=== PATIENT | female | born 1955 | race Caucasian/White ===

== ENCOUNTER 2020-01-14 06:38 | Outpatient (REF) | payer OTHER, SELFPAY ==
[2020-01-14 07:55] LABS: Alanine Aminotransferase 24 U/L (0-31); Anion Gap 12 (12-20); Aspartate Amino Transferase 18 U/L (5-31); Blood Urea Nitrogen 18 mg/dL (9-16); Carbon Dioxide 27 mmol/L (22-29); Chloride 104 mmol/L (96-108); Cholesterol 158 mg/dL; Estimated Glomerular Filt Rate > 60; Glucose Fasting 112 mg/dL (60-99); HDL Cholesterol 55 mg/dL; LDL Cholesterol Calculated 88 mg/dl; Potassium 4.2 mmol/l (3.3-5.1); Sodium 139 mmol/L (135-145); Triglycerides 75 mg/dL
[2020-01-14 08:16] LABS: Vitamin D 25-OH Total 29.4 ng/mL (>30)
== END 2020-01-14 06:39 | disposition home or self-care (01) ==
LOC: HO.LAB 06:38
PROVIDERS: Visit Provider Internal Medicine
DX: E78.5 Hyperlipidemia, unspecified (principal); I10 Essential (primary) hypertension; Z78.0 Asymptomatic menopausal state
CPT/HCPCS: 80048; 80061; 82306; 84450; 84460

== ENCOUNTER 2020-04-25 06:59 | Outpatient (REF) | payer OTHER, SELFPAY ==
[2020-04-25 07:21] LABS: MANUAL DIFF FLAG NO
[2020-04-25 07:28] LABS: Basophils Percent Auto 0.6 % (0-2); Eosinophils Absolute Auto 0.1 X10*3/uL (0.0-0.4); Eosinophils Percent Auto 3.9 % (0-4); Hematocrit 43.4 % (37-47); Hemoglobin 14.5 g/dl (12.0-16.0); Lymphocytes Absolute Auto 1.2 X10*3/uL (1.2-4.9); Lymphocytes Percent Auto 33.4 % (20-40); Mean Corpuscular HGB Conc 33.4 g/dl (31.0-35.0); Mean Corpuscular Hemoglobin 31.5 pg (27.0-33.0); Mean Corpuscular Volume 94.1 fL (80-98); Mean Platelet Volume 9.8 fL (9.4-12.3); Monocytes Absolute Auto 0.4 X10*3/uL (0.1-1.2); Monocytes Percent Auto 10.6 % (2-11); Neutrophils Absolute Auto 1.9 X10*3/uL (2.0-8.3); Neutrophils Percent Auto 51.5 % (45-73); Platelet Count 167 X10*3/uL (160-400); Red Blood Count 4.61 X10*6/uL (4.20-5.50); Red Cell Distribution Width 12.6 % (11.0-16.0); White Blood Count 3.6 X10*3/uL (4.8-10.8)
[2020-04-25 07:50] LABS: Estimated Average Glucose 123 mg/dL; Hemoglobin A1C 150.4238 umol/L; Hemoglobin A1c % 5.9 %
[2020-04-25 08:19] LABS: Vitamin D 25-OH Total 25.9 ng/mL (>30)
[2020-04-25 08:25] LABS: Alanine Aminotransferase 22 U/L (0-31); Albumin Level 4.2 g/dL (3.5-5.0); Alkaline Phosphatase 57 U/L (39-117); Anion Gap 16 (12-20); Aspartate Amino Transferase 18 U/L (5-31); Bilirubin Total 0.9 mg/dL (0.0-1.0); Blood Urea Nitrogen 17 mg/dL (9-16); Calcium 8.8 mg/dL (8.4-10.2); Carbon Dioxide 23 mmol/L (22-29); Chloride 106 mmol/L (96-108); Cholesterol 227 mg/dL; Estimated Glomerular Filt Rate > 60; Glucose Fasting 112 mg/dL (60-99); HDL Cholesterol 66 mg/dL; Iron 122 mcg/dL (30-160); LDL Cholesterol Calculated 142 mg/dl; Percent Iron Saturation 41 % (15-50); Potassium 4.3 mmol/L (3.3-5.1); Sodium 141 mmol/L (135-145); Total Iron Binding Capacity 297 mcg/dL (228-428); Triglycerides 98 mg/dL; Unsaturated Iron Binding 175 ug/dL
== END 2020-04-25 07:00 | disposition home or self-care (01) ==
LOC: HO.LAB 06:59
PROVIDERS: PCP Internal Medicine; Visit Provider Internal Medicine
DX: Z00.01 Encounter for general adult medical examination with abnormal findings (principal); R73.01 Impaired fasting glucose; E66.01 Morbid (severe) obesity due to excess calories; I10 Essential (primary) hypertension; E78.5 Hyperlipidemia, unspecified; D72.829 Elevated white blood cell count, unspecified; D64.9 Anemia, unspecified; D12.6 Benign neoplasm of colon, unspecified
CPT/HCPCS: 36415; 80053; 80061; 82306; 83036; 83540; 85025

== ENCOUNTER 2021-04-29 06:47 | Outpatient (REF) | payer OTHER, SELFPAY ==
[2021-04-29 12:07] LABS: Alanine Aminotransferase 37 U/L (0-31); Albumin Level 4.2 g/dL (3.5-5.0); Alkaline Phosphatase 45 U/L (39-117); Anion Gap 13 (12-20); Aspartate Amino Transferase 26 U/L (5-31); Bilirubin Total 0.9 mg/dL (0.0-1.0); Blood Urea Nitrogen 15 mg/dL (9-16); Calcium 9.6 mg/dL (8.4-10.2); Carbon Dioxide 27 mmol/L (22-29); Chloride 105 mmol/L (96-108); Cholesterol 193 mg/dL; Estimated Glomerular Filt Rate > 60; Glucose Fasting 137 mg/dL (60-99); HDL Cholesterol 58 mg/dL; LDL Cholesterol Calculated 113 mg/dl; Potassium 4.2 mmol/L (3.3-5.1); Sodium 141 mmol/L (135-145); Total Protein 7.2 g/dL (6.5-8.0); Triglycerides 114 mg/dL
[2021-04-29 12:13] LABS: Vitamin D 25-OH Total 21.5 ng/mL (>30)
== END 2021-04-29 06:48 | disposition home or self-care (01) ==
LOC: HO.HMGCLDS 06:47
PROVIDERS: Visit Provider Internal Medicine
DX: Z00.01 Encounter for general adult medical examination with abnormal findings (principal); R73.01 Impaired fasting glucose; E66.01 Morbid (severe) obesity due to excess calories; I10 Essential (primary) hypertension; E78.5 Hyperlipidemia, unspecified
CPT/HCPCS: 36415; 80053; 80061; 82306

== ENCOUNTER 2022-05-26 06:07 | Outpatient (REF) | payer OTHER, SELFPAY ==
[2022-05-26 11:49] LABS: Alanine Aminotransferase 65 U/L (0-31); Aspartate Amino Transferase 42 U/L (5-31); Cholesterol 174 mg/dL; HDL Cholesterol 55 mg/dL; LDL Cholesterol Calculated 104 mg/dl; Triglycerides 79 mg/dL
[2022-05-26 11:53] LABS: Estimated Average Glucose 166 mg/dL; Hemoglobin A1c % 7.4 %
[2022-05-26 12:07] LABS: Vitamin D 25-OH Total 29.6 ng/mL (>30)
== END 2022-05-26 06:08 | disposition home or self-care (01) ==
LOC: HO.HMGCLDS 06:07
PROVIDERS: PCP Internal Medicine; Visit Provider Internal Medicine
DX: E66.01 Morbid (severe) obesity due to excess calories (principal); I10 Essential (primary) hypertension; E78.5 Hyperlipidemia, unspecified; R73.01 Impaired fasting glucose
CPT/HCPCS: 36415; 80061; 82306; 83036; 84450; 84460

== ENCOUNTER 2022-09-28 07:37 | Outpatient (REF) | payer OTHER, SELFPAY ==
[2022-09-28 12:13] LABS: Estimated Average Glucose 160 mg/dL; Hemoglobin A1c % 7.2 %
[2022-09-28 13:19] LABS: Alanine Aminotransferase 67 U/L (0-31); Anion Gap 13 (12-20); Aspartate Amino Transferase 44 U/L (5-31); Blood Urea Nitrogen 16 mg/dL (9-16); Calcium 9.5 mg/dL (8.4-10.2); Carbon Dioxide 25 mmol/L (22-29); Chloride 106 mmol/L (96-108); Cholesterol 191 mg/dL; Estimated Glomerular Filt Rate > 60; Glucose Fasting 170 mg/dL (60-99); HDL Cholesterol 61 mg/dL; LDL Cholesterol Calculated 107 mg/dl; Potassium 4.1 mmol/L (3.3-5.1); Sodium 140 mmol/L (135-145); Triglycerides 118 mg/dL
[2022-09-28 13:36] LABS: Vitamin D 25-OH Total 36.5 ng/mL (>30)
== END 2022-09-28 07:38 | disposition home or self-care (01) ==
LOC: HO.HMGCLDS 07:37
PROVIDERS: PCP Internal Medicine; Visit Provider Internal Medicine
DX: E11.65 Type 2 diabetes mellitus with hyperglycemia (principal); E66.01 Morbid (severe) obesity due to excess calories; I10 Essential (primary) hypertension; E78.5 Hyperlipidemia, unspecified; E55.9 Vitamin D deficiency, unspecified
CPT/HCPCS: 36415; 80048; 80061; 82306; 83036; 84450; 84460

== ENCOUNTER 2022-10-05 11:46 | Outpatient (AMB) | payer OTHER, SELFPAY ==
[2022-10-05 12:20] VITALS: BP 140/90; PULSE 63; O2SAT 98; BMI 45.3
--- NOTE | 2022-10-05 12:20 | MHC.PC.OV ---
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: Patient has dentist HPI 4m follow up HTN HPI Details 67-year-old lady here today for follow-up on her hypertension. Currently taking lisinopril 10 mg daily, has been feeling well on this dose, with no complaints of any headache, no dizziness or chest pain or shortness of breath. She also has diabetes mellitus currently on metformin ER 500 mg taken only once a day, and takes simvastatin 20 mg at bedtime for her high cholesterol. Recent fasting labs done which showed mildly elevated LDL cholesterol at 107 mg/dL, with a hemoglobin A1c at 7.2%, lower than last check. [facility] Medical History Bilateral carpal tunnel syndrome Diabetes mellitus with hyperglycemia Dyslipidemia (high LDL; low HDL) Essential hypertension Impaired fasting glucose Leukocytosis Morbid obesity Tubular adenoma of colon Surgical History No pertinent past surgical history Family History Father No problems noted. Mother No problems noted. Brother No problems noted. Sister No problems noted. Sister No problems noted. Social History Housing: House Alcohol intake: current Patient Tobacco Use Status: Never used Tobacco e-Cigarette/Vaping Use: Never Used service: No Current occupational status: employed Cognitive needs: No Hearing needs: No Vision needs: Yes Questionnaire Thrive Questionnaire Date Thrive assessed: 06/02/22 WEI-7 AMB Questionnaire WEI-7 Date WEI - 7 assessed: 06/02/22 Source: Developed by Drs. Nick Fry, Leonor Alvarez, Rosendo Coronel and colleagues, with an educational angie from [employer]. Review of Systems Const Denies body aches, Denies fatigue, Denies fever(s), Denies headache(s) and Denies weakness Eyes Denies change in vision ENT Denies dizziness, Denies headache(s), Denies nasal congestion, Denies nasal discharge and Denies sore throat Card Denies chest pain, Denies lightheadedness, Denies palpitations and Denies dyspnea Resp Denies chest congestion, Denies cough, Denies dyspnea and Denies wheezing GI Denies abdominal pain, Denies change in bowel habits and Denies heartburn Denies urinary frequency, Denies dysuria and Denies urinary urgency Musc Reports no additional complaints Skin/Breast Denies lesions and Denies rash Neuro Denies dizziness, Denies headache(s) and Denies weakness Psych Reports no additional complaints Endo Denies fatigue, Denies polydipsia, Denies polyuria and Denies palpitations Lucian/Lymph Denies easy bruising Aller/Immun Denies seasonal rhinorrhea and Denies wheezing Physical exam (Primary Care) Vital Signs: Last Vital Signs Pulse 63 10/05/22 12:20 BP 140/90 H 10/05/22 12:20 Pulse Ox 98 10/05/22 12:20 BMI result Body Mass Index 45.3 Tobacco/Smoking Status: Tobacco use Status Tobacco use date assessed 06/02/22 10/05/22 12:25 Patient Tobacco Use Status Never used Tobacco 10/05/22 12:25 e-Cigarette/Vaping Use Never Used 10/05/22 12:25 Thrive Assessment: Date of Thrive Assessment Date Thrive assessed 06/02/22 10/05/22 12:25 Const General: cooperative, comfortable and no acute distress Nutritional Appearance: obese morbidly obese Orientation/consciousness: patient oriented x3 Limitations: ambulation with walker HENMT Head: Yes normocephalic and Yes atraumatic Ears: hearing grossly normal bilaterally, external ears normal, TM's normal bilaterally and EAC's normal General nose exam: Normal external nose present and No nasal discharge present Face and sinus: Yes sinuses nontender and Yes face symmetric Mouth: Normal oral and palatal mucosa present and moist mucous membranes Eyes General: appearance normal, both eyes and all related structures Neck Neck: Yes full ROM, Yes no lymphadenopathy, Yes supple and Yes no JVD Thyroid: Thyroid normal Resp Effort & Inspection: normal respiratory effort and able to speak in complete sentences Auscultation: clear to auscultation bilaterally Cardio Palpation: normal PMI Rate: regular rate Rhythm: regular rhythm Heart sounds: S1 normal heart sound present and S2 normal heart sound present GI Inspection: Yes Abdominal panniculus present and Yes obesity Palpation (GI): Soft to palpation, nontender, no guarding and no masses Auscultation: normal bowel sounds Neuro General: patient oriented x3, gait normal, tone normal, moves all extremities, Normal light touch and pain sensation, no focal motor deficits and CN's II-XI intact bilaterally Extrem General: Yes full ROM, Yes no joint enlargement, Yes no clubbing, cyanosis or edema, Yes no pedal edema, Yes no calf tenderness and Yes normal gait Results Reviewed Results Reviewed: ENTERED: 09/28/22 DILIP SCHILLING: ORDERED: Met Prof Fast, AST, ALT, Lipid Panel, Vitamin D 25-OH Test Result Flag Reference Site Sodium 140 135-145 mmol/L Potassium 4.1 3.3-5.1 mmol/L CL 106 96-108 mmol/L CO2 25 22-29 mmol/L Gap 13 12-20 BUN 16 9-16 mg/dL Creat 0.73 0.5-1.4 mg/dL EGFR > 60 NOTE: For -[place] individuals, multiply the result by 1.210. Chronic Kidney Disease: Estimated GFR < 60 mL/min/1.73m2 Severe Kidney Disease: Estimated GFR < 15 mL/min/1.73m2 FBS 170 H 60-99 mg/dL A fasting glucose of 126 mg/dl or greater on more than one occasion is considered diagnostic of diabetes. CA 9.5 8.4-10.2 mg/dL AST (GOT) 44 H 5-31 U/L ALT (GPT) 67 H 0-31 U/L Triglyceride 118 mg/dL Desirable Triglyceride: less than 150 mg/dL Borderline High Triglyceride 150-199 mg/dL High Triglyceride: 200-499 mg/dL Very High Triglyceride: greater than or equal to 5OO mg/dL Chol 191 mg/dL Desirable Cholesterol: less than 200 mg/dL Borderline High Cholesterol: 200-239 mg/dL High Cholesterol: greater than 239 mg/dL LDL Calculated 107 mg/dl Desirable LDL: less than 100 mg/dL Near Optimal/Above Optimal LDL: 110-129 mg/dL Borderline High LDL: 130-159 mg/dL High LDL: 160-189 mg/dL Very High LDL: greater than or equal to 190 mg/dL HDL 61 mg/dL Desirable HDL: greater than 40 mg/dL Note: This HDL assay may give artificially low results in patients with liver disease. Vit D 25-OH Tot 36.5 >30 ng/mL Health Based Reference Values* < 20 ng/mL Deficient 20-30 ng/mL Insufficient > 30 ng/mL Sufficient Laboratory Tests 09/28/22 07:43 Estimat Average Glucose 160 Hemoglobin A1c % 7.2 Assessment and Plan Assessment & Plan (1) Diabetes mellitus with hyperglycemia: Code(s): E11.65 - Type 2 diabetes mellitus with hyperglycemia Plan: Increase metformin ER dose to 500 mg twice a day a.m. and p.m. with meals, Recent lab results reviewed with patient, with sugar and hemoglobin A1c improving but still not at goal of less than 7%. Continue to check fasting blood sugar at home, maintain log and bring to next appointment for review. Reinforced diabetic diet and regular exercise with patient. Counseled regarding importance of yearly diabetes retinopathy screening. Patient advised to inspect feet daily, for any signs of injury, callus or infection. Compliance with diet and regular exercise again stressed. Blood pressure goal is less than 130/80, goal LDL is less than 100 and goal hemoglobin A1c is less than 7% follow-up appointment made in-4--months, after fasting labs done. Patient interested in checking blood sugar with [employer] [facility] and would like a referral to see a dietitian for help with her meal plans (2) Essential hypertension: Code(s): I10 - Essential (primary) hypertension Plan: Blood pressure goal is less than 130/80. Continue with lisinopril 10 mg daily.. Reinforced importance of following a low sodium diet, getting regular exercise, and lowering stress levels. (3) Dyslipidemia (high LDL; low HDL): Code(s): E78.5 - Hyperlipidemia, unspecified Plan: Reviewed recent fasting lipid profile with patient with LDL cholesterol still elevated. . Continue with simvastatin 20 mg at bedtime , in addition to adherence to low-cholesterol diet and regular exercise, at least 30 minutes 3 to 4 times a week. Advised patient to make healthy food choices, eat more fruits, vegetables, whole grains, wild caught fish and low-fat dairy. Limit amount of meat and fried or fatty food products, as well as processed foods and fast foods. Follow-up scheduled with repeat fasting lipid panel in 4 months. Orders: Orders Alanine Aminotransferase 01/21/23 E11.65 - Type 2 diabetes mellitus with hyperglycemia, E78.5 - Hyperlipidemia, unspecified, I10 - Essential (primary) hypertension Aspartate Amino Transferase 01/21/23 E11.65 - Type 2 diabetes mellitus with hyperglycemia, E78.5 - Hyperlipidemia, unspecified, I10 - Essential (primary) hypertension Basic Metabolic Panel Fasting 01/21/23 E11.65 - Type 2 diabetes mellitus with hyperglycemia, E78.5 - Hyperlipidemia, unspecified, I10 - Essential (primary) hypertension Hemoglobin A1c 01/21/23 E11.65 - Type 2 diabetes mellitus with hyperglycemia, E78.5 - Hyperlipidemia, unspecified, I10 - Essential (primary) hypertension Lipid Panel 01/21/23 E11.65 - Type 2 diabetes mellitus with hyperglycemia, E78.5 - Hyperlipidemia, unspecified, I10 - Essential (primary) hypertension Vitamin D 25-OH Total 01/21/23 E11.65 - Type 2 diabetes mellitus with hyperglycemia, E78.5 - Hyperlipidemia, unspecified, I10 - Essential (primary) hypertension Microalbumin, Random (w Creat) 01/21/23 E11.65 - Type 2 diabetes mellitus with hyperglycemia, E78.5 - Hyperlipidemia, unspecified, I10 - Essential (primary) hypertension Medications: Changed From metformin ER 500 mg PO DAILY 90 tabs 2RF To metformin ER 500 mg PO BID 3 months 180 tabs 2RF Coding Level of Care Code Est Pt Level 4 (26465) Diagnoses Diabetes mellitus with hyperglycemia E11.65 Essential hypertension I10 Dyslipidemia (high LDL; low HDL) E78.5
== END 2022-10-05 13:12 | disposition home or self-care (01) ==
PROVIDERS: PCP Internal Medicine; Visit Provider Internal Medicine
DX: E11.65 Type 2 diabetes mellitus with hyperglycemia (principal); I10 Essential (primary) hypertension; E78.5 Hyperlipidemia, unspecified
CPT/HCPCS: 99214

== ENCOUNTER 2023-01-27 08:27 | Outpatient (REF) | payer OTHER, SELFPAY ==
[2023-01-27 11:44] LABS: Estimated Average Glucose 180 mg/dL; Hemoglobin A1c % 7.9 % (<6.0)
[2023-01-27 12:12] LABS: Alanine Aminotransferase 67 U/L (0-31); Anion Gap 14 (12-20); Aspartate Amino Transferase 46 U/L (5-31); Blood Urea Nitrogen 14 mg/dL (9-16); Calcium 9.6 mg/dL (8.4-10.2); Carbon Dioxide 26 mmol/L (22-29); Chloride 104 mmol/L (96-108); Cholesterol 166 mg/dL (<200); Estimated Glomerular Filt Rate > 60; Glucose Fasting 179 mg/dL (60-99); HDL Cholesterol 61 mg/dL (>40); LDL Cholesterol Calculated 83 mg/dL (<100); Potassium 4.2 mmol/L (3.3-5.1); Sodium 140 mmol/L (135-145); Triglycerides 113 mg/dL (<150)
[2023-01-27 12:18] LABS: Vitamin D 25-OH Total 54.4 ng/mL (>30)
[2023-01-27 16:47] LABS: Creatinine Urine 174.36 mg/dL; Microalbum/Creatinine Ratio Ur 10.3 ug/mg cr (<30)
== END 2023-01-27 08:28 | disposition home or self-care (01) ==
LOC: HO.HMGCLDS 08:27
PROVIDERS: PCP Internal Medicine; Visit Provider Internal Medicine
DX: E11.65 Type 2 diabetes mellitus with hyperglycemia (principal); E78.5 Hyperlipidemia, unspecified; I10 Essential (primary) hypertension
CPT/HCPCS: 36415; 80048; 80061; 82043; 82306; 82570; 83036; 84450; 84460

== ENCOUNTER 2023-02-04 09:32 | Outpatient (AMB) | payer OTHER, SELFPAY ==
[2023-02-04 09:56] VITALS: BP 140/88; PULSE 70; O2SAT 97; BMI 44.6
--- NOTE | 2023-02-04 09:56 | A.OFFPC_ITS ---
Vital Signs 02/04/23 09:56 Height 5 ft 2 in Weight 244 lb 2 oz BMI 44.6 BP 140/88 H Blood Pressure Location Rt brachial Position Sitting Pulse 70 Pulse Source Pulse Oximeter Pulse Oximetry (%) 97 Oxygen Delivery Method Room Air Intake Visit Reasons: follow up Intake Note: Pt is here to follow up for lab results Allergies No Known Allergies Allergy (Verified 02/04/23 10:23) Medication List - Last Reconciled 02/04/23 by Pam Pierce MD blood sugar diagnostic (FreeStyle Lite Strips) As directed blood-glucose meter (FreeStyle Lite Meter kit) Check blood sugar b.i.d. before meals lancets (FreeStyle Lancets) Check fasting glucose twice a day before meals lisinopril 10 mg PO DAILY metformin ER 500 mg PO BID 3 months simvastatin 20 mg PO QPM Tobacco use date assessed: 02/04/23 Fall risk assessment: No Falls in past year Last assessed Fall Risk: 02/04/23 Dental Screening Dental Screen Date: 02/04/23 Did you have a dental visit in the last 12 months?: Yes Did you have a dental problem in the last 6 months where you did not have access to dental care?: No Was dental information given to patient?: Patient has dentist HPI follow up HPI Details 68-year-old lady with diabetes mellitus, hypertension dyslipidemia, here today for follow-up. She has been trying to follow recommended diet and has started exercising. However she states that she developed some diarrhea and abdominal cramping when she 1st started taking metformin, so has just been taking it once a day for the 1st week, but now has increased dose to twice a day starting 01/27/2023. Patient now states that she is able to tolerate medication with no adverse effects noted . Hemoglobin A1c today is at 7.9% but fasting lipids and vitamin-D levels are within normal limits. She had the diabetes retinopathy screening done at [facility] which showed no retinopathy. Has had her COVID booster and flu shot up-to-date with her shingles vaccine and Tdap, but has not yet had her pneumonia vaccine, which we will give today [facility] Medical History Diabetes mellitus with hyperglycemia Bilateral carpal tunnel syndrome Tubular adenoma of colon Leukocytosis Impaired fasting glucose Morbid obesity Essential hypertension Dyslipidemia (high LDL; low HDL) Surgical History No pertinent past surgical history Family History Father No problems noted. Mother No problems noted. Brother No problems noted. Sister No problems noted. Sister No problems noted. Social History Housing: House Alcohol intake: current Patient Tobacco Use Status: Never used Tobacco e-Cigarette/Vaping Use: Never Used service: No Current occupational status: employed Cognitive needs: No Hearing needs: No Vision needs: Yes Questionnaire Thrive Questionnaire Date Thrive assessed: 06/02/22 WEI-7 AMB Questionnaire WEI-7 Date WEI - 7 assessed: 06/02/22 Source: Developed by Drs. Nick Fry, Leonor Alvarez, Rosendo Coronel and colleagues, with an educational angie from [employer]. Review of Systems Const Denies body aches, Denies fatigue, Denies fever(s), Denies headache(s) and Denies weakness Eyes Details: Up-to-date with her diabetes retinopathy screening, goes to [facility] Denies change in vision ENT Denies dizziness, Denies headache(s), Denies nasal congestion, Denies nasal discharge and Denies sore throat Card Denies chest pain, Denies lightheadedness, Denies palpitations and Denies d yspnea Resp Denies chest congestion, Denies cough, Denies dyspnea and Denies wheezing GI Denies abdominal pain, Denies change in bowel habits and Denies heartburn Denies urinary frequency, Denies dysuria and Denies urinary urgency Musc Reports no additional complaints Skin/Breast Denies lesions and Denies rash Neuro Denies dizziness, Denies headache(s) and Denies weakness Psych Reports no additional complaints Endo Denies fatigue, Denies polydipsia, Denies polyuria and Denies palpitations Lucian/Lymph Denies easy bruising Aller/Immun Denies seasonal rhinorrhea and Denies wheezing Physical exam (Primary Care) Vital Signs: Last Vital Signs Pulse 70 02/04/23 09:56 BP 140/88 H 02/04/23 09:56 Pulse Ox 97 02/04/23 09:56 Oxygen Delivery Method Room Air 02/04/23 09:56 BMI result Body Mass Index 44.6 Tobacco/Smoking Status: Tobacco use Status Tobacco use date assessed 02/04/23 02/04/23 10:02 Patient Tobacco Use Status Never used Tobacco 02/04/23 09:56 e-Cigarette/Vaping Use Never Used 02/04/23 09:56 Thrive Assessment: Date of Thrive Assessment Date Thrive assessed 06/02/22 02/04/23 09:56 Const General: cooperative, comfortable and no acute distress Nutritional Appearance: obese morbidly obese Orientation/consciousness: patient oriented x3 HENMT Head: Yes normocephalic and Yes atraumatic Ears: hearing grossly normal bilaterally, external ears normal, TM's normal bilaterally and EAC's normal General nose exam: Normal external nose present and No nasal discharge present Face and sinus: Yes sinuses nontender and Yes face symmetric Mouth: Normal oral and palatal mucosa present and moist mucous membranes Eyes General: appearance normal, both eyes and all related structures Neck Neck: Yes full ROM, Yes no lymphadenopathy, Yes supple and Yes no JVD Thyroid: Thyroid normal Resp Effort & Inspection: normal respiratory effort and able to speak in complete sentences Auscultation: clear to auscultation bilaterally Cardio Palpation: normal PMI Rate: regular rate Rhythm: regular rhythm Heart sounds: S1 normal heart sound present and S2 normal heart sound present GI Inspection: Yes Abdominal panniculus present and Yes obesity Palpation (GI): Soft to palpation, nontender, no guarding and no masses Auscultation: normal bowel sounds Neuro General: patient oriented x3, gait normal, tone normal, moves all extremities, Normal light touch and pain sensation, no focal motor deficits and CN's II-XI intact bilaterally Extrem General: Yes full ROM, Yes no joint enlargement, Yes no clubbing, cyanosis or e felix, Yes no pedal edema, Yes no calf tenderness and Yes normal gait Assessment and Plan Assessment & Plan (1) Diabetes mellitus with hyperglycemia: Code(s): E11.65 - Type 2 diabetes mellitus with hyperglycemia Qualifiers: Diabetes mellitus type: type 2 Diabetes mellitus [facility] insulin use: without [facility] use Qualified Code(s): E11.65 - Type 2 diabetes mellitus with hyperglycemia Plan: Hemoglobin A1c at 7.9%, just started increasing her metformin dosing to twice a day. Will recheck again another hemoglobin seeing and basic metabolic panel in 3 month. Advised to continue with metformin twice a day 500 mg/tab, goal hemoglobin A1c less than 7% for now. Up-to-date with her COVID vaccine, flu shot, and shingles vaccine, Prevnar 20 given today. Up-to-date with her diabetes retinopathy screening. Stressed importance of following recommended diet and getting at least 15-30 minutes of cardio exercise on a daily basis. (2) Essential hypertension: Code(s): I10 - Essential (primary) hypertension Plan: Blood pressure mildly elevated today, goal blood pressure less than 130/90. Will continue on lisinopril 10 mg daily. Reinforced importance of following a low-salt diet and getting regular exercise to lose weight. Will recheck again in 3 months (3) Dyslipidemia (high LDL; low HDL): Code(s): E78.5 - Hyperlipidemia, unspecified Plan: Reviewed recent fasting lipid profile with patient with levels within normal limit . Continue with simvastatin 20 mg at bedtime , in addition to adherence to low-cholesterol diet and regular exercise, at least 30 minutes 3 to 4 times a week. Advised patient to make healthy food choices, eat more fruits, vegetables, whole grains, wild caught fish and low-fat dairy. Limit amount of meat and fried or fatty food products, as well as processed foods and fast foods. Follow-up scheduled with repeat fasting lipid panel in 3 months. Coding Level of Care Code Est Pt Level 4 (10064) Diagnoses Type 2 diabetes mellitus with hyperglycemia, without long-term current use of insulin E11.65 Diabetes mellitus type: type 2 Diabetes mellitus [facility] insulin use: without [facility] use Essential hypertension I10 Dyslipidemia (high LDL; low HDL) E78.5
== END 2023-02-04 15:30 | disposition home or self-care (01) ==
LOC: HO.HMGC 09:32
PROVIDERS: PCP Internal Medicine; Visit Provider Internal Medicine
DX: E11.65 Type 2 diabetes mellitus with hyperglycemia (principal); I10 Essential (primary) hypertension; E78.5 Hyperlipidemia, unspecified; Z23 Encounter for immunization
CPT/HCPCS: 90471; 90677; 99214

== ENCOUNTER 2023-04-26 08:44 | Outpatient (REF) | payer MEDICARE, SELFPAY ==
[2023-04-26 12:19] LABS: Anion Gap 14 (12-20); Blood Urea Nitrogen 14 mg/dL (9-16); Calcium 10.1 mg/dL (8.4-10.2); Carbon Dioxide 27 mmol/L (22-29); Chloride 103 mmol/L (96-108); Estimated Glomerular Filt Rate > 60; Glucose Fasting 159 mg/dL (60-99); Potassium 4.3 mmol/L (3.3-5.1); Sodium 140 mmol/L (135-145)
== END 2023-04-26 08:45 | disposition home or self-care (01) ==
LOC: HO.HMGCLDS 08:44
PROVIDERS: PCP Internal Medicine; Visit Provider Internal Medicine
DX: E66.01 Morbid (severe) obesity due to excess calories (principal); E78.5 Hyperlipidemia, unspecified; I10 Essential (primary) hypertension; R73.01 Impaired fasting glucose
CPT/HCPCS: 36415; 80048

== ENCOUNTER 2023-05-06 10:10 | Outpatient (REF) | payer MEDICARE, SELFPAY ==
[2023-05-06 14:33] LABS: Creatinine Urine 92.57 mg/dL; Microalbum/Creatinine Ratio Ur 17.2 ug/mg cr (<30)
== END 2023-05-06 10:11 | disposition home or self-care (01) ==
LOC: HO.HMGCLNP 10:10
PROVIDERS: PCP Internal Medicine; Visit Provider Internal Medicine
DX: E11.65 Type 2 diabetes mellitus with hyperglycemia (principal); E66.01 Morbid (severe) obesity due to excess calories; I10 Essential (primary) hypertension; E78.5 Hyperlipidemia, unspecified
CPT/HCPCS: 82043; 82570

== ENCOUNTER 2023-05-06 10:36 | Outpatient (AMB) | payer MEDICARE, SELFPAY ==
[2023-05-06 11:09] VITALS: BP 134/70; PULSE 70; O2SAT 96; BMI 44.8
--- NOTE | 2023-05-06 11:09 | MHC.PC.OV ---
Vital Signs 05/06/23 11:09 Height 5 ft 2 in Weight 245 lb BMI 44.8 BP 134/70 Blood Pressure Location Rt brachial Position Sitting Pulse 70 Pulse Source Pulse Oximeter Pulse Oximetry (%) 96 Oxygen Delivery Method Room Air Intake Visit Reasons: medication follow up Intake Note: Pt is here today for her f/u DM and medication Allergies No Known Allergies Allergy (Verified 08/12/23 08:23) Medication List - Last Reconciled 08/13/23 by Pam Pierce MD blood sugar diagnostic (FreeStyle Lite Strips) As directed blood-glucose meter (FreeStyle Lite Meter kit) Check blood sugar b.i.d. before meals lancets (FreeStyle Lancets) Check fasting glucose twice a day before meals lisinopril 10 mg PO DAILY metformin ER Take 1000 mg metformin in the morning with breakfast and 500mg at night with supper 3 months simvastatin 20 mg PO QPM Tobacco use date assessed: 05/06/23 Fall risk assessment: No Falls in past year Last assessed Fall Risk: 05/06/23 Dental Screening Dental Screen Date: 05/06/23 Did you have a dental visit in the last 12 months?: Yes Did you have a dental problem in the last 6 months where you did not have access to dental care?: Yes Was dental information given to patient?: Patient has dentist HPI medication follow up HPI Details 58-year-old lady with diabetes mellitus, hyperlipidemia and hypertension, here today for follow-up. Has been compliant with taking her medications, tries to follow recommended diet, but has not been very compliant with exercise. Latest fasting labs showed electrolytes were and renal function are within normal limits, and hemoglobin A1c today unchanged at 7.9%. FORMERLY [facility] Medical History Diabetes mellitus with hyperglycemia Bilateral carpal tunnel syndrome Tubular adenoma of colon Morbid obesity Essential hypertension Dyslipidemia (high LDL; low HDL) Surgical History Hx of foot surgery H/O colonoscopy Family History Father No problems noted. Mother No problems noted. Brother No problems noted. Sister No problems noted. Sister No problems noted. Social History Housing: House Alcohol intake: current Alcohol intake frequency: does not drink Patient Tobacco Use Status: Never used Tobacco e-Cigarette/Vaping Use: Never Used service: No Current occupational status: employed Cognitive needs: No Hearing needs: No Vision needs: Yes Questionnaire PHQ-9 Over the last 2 weeks, how often have you been bothered by any of the following problems? 1. Little interest or pleasure in doing things: not at all 2. Feeling down, depressed, or hopeless: not at all 3. Trouble falling or staying asleep, or sleeping too much: not at all 4. Feeling tired or having little energy: not at all 5. Poor appetite or overeating: not at all 6. Feeling bad about yourself - or that you are a failure or have let yourself or your family down: not at all 7. Trouble concentrating on things, such as reading the newspaper or watching television: not at all 8. Moving or speaking so slowly that other people could have noticed. Or the opposite - being so fidgety or restless that you have been moving around a lot more than usual: not at all 9. Thoughts that you would be better off or of hurting yourself in some way: not at all Total score: 0 Depression Screening Interpretation: Negative Depression Screening Done: Yes 64437 - PHQ-9 Billing: Yes Source: Developed by Drs. Nick Fry, Leonor Alvarez, Rosendo Coronel and colleagues, with an educational angie from [employer]. Thrive Questionnaire Date Thrive assessed: 05/06/23 I am a: Patient What is your living situation today?: I have a steady place to live Within the past 12 months, did the food you bought not last and you didn't have the money to get more?: Never true Within the past 12 months, did you worry whether your food would run out before you got money to buy more?: Never true Do you have trouble paying for medicines?: No Do you have trouble getting transportation to medical appointments?: No Do you have trouble paying your heating and electricity bill?: No Do you have trouble taking care of your child, family member or friend?: No Do you have trouble with day-to-day activities such as bathing, preparing meals, shopping, managing finances, etc.?: No Are you currently unemployed and looking for a job?: No Are you interested in more education?: No THRIVE Score: 0 AUDIT C Alcohol Use Questionnaire (AUDIT-C) 1. How often do you have a drink containing alcohol?: Never Total Score: 0 WEI-7 AMB Questionnaire WEI-7 Date WEI - 7 assessed: 06/02/22 Feeling nervous, anxious, or on edge: 0 = Not at all Not being able to stop or control worryin = Not at all Worrying too much about different things: 0 = Not at all Trouble relaxin = Not at all Being so restless that it is hard to sit still: 0 = Not at all Becoming easily annoyed or irritable: 0 = Not at all Feeling afraid as if something awful might happen: 0 = Not at all Total WEI-7 score (0-4 normal; 5-9 mild; 10-14 moderate; 15-21 severe): 0 Source: Developed by Drs. Nick Fry, Leonor Alvarez, Rosendo Coronel and colleagues, with an educational angie from [employer]. WEI-7 Assessment Billing WEI-7 Assessment Tool: WEI-7 Assessment 75150 Review of Systems Const Denies body aches, Denies fatigue, Denies fever(s), Denies headache(s) and Denies weakness Eyes Details: Up-to-date with her diabetes retinopathy screening, goes to [facility] Denies change in vision ENT Denies dizziness, Denies headache(s), Denies nasal congestion, Denies nasal discharge and Denies sore throat Card Denies chest pain, Denies lightheadedness, Denies palpitations and Denies dyspnea Resp Denies chest congestion, Denies cough, Denies dyspnea and Denies wheezing GI Denies abdominal pain, Denies change in bowel habits and Denies heartburn Denies urinary frequency, Denies dysuria and Denies urinary urgency Musc Reports no additional complaints Skin/Breast Denies lesions and Denies rash Neuro Denies dizziness, Denies headache(s) and Denies weakness Psych Reports no additional complaints Endo Denies fatigue, Denies polydipsia, Denies polyuria and Denies palpitations Lucian/Lymph Denies easy bruising Aller/Immun Denies seasonal rhinorrhea and Denies wheezing Physical exam (Primary Care) Vital Signs: Last Vital Signs Pulse 70 05/06/23 11:09 BP 134/70 05/06/23 11:09 Pulse Ox 96 05/06/23 11:09 Oxygen Delivery Method Room Air 05/06/23 11:09 BMI result Body Mass Index 44.8 Tobacco/Smoking Status: Tobacco use Status Tobacco use date assessed 05/06/23 05/06/23 11:23 Patient Tobacco Use Status Never used Tobacco 05/06/23 11:09 e-Cigarette/Vaping Use Never Used 05/06/23 11:09 PHQ-9: PHQ-9 Score PHQ-9: Total score 0 05/06/23 11:57 Depression Screening Interpretation: Negative Thrive Assessment: Date of Thrive Assessment Date Thrive assessed 05/06/23 05/06/23 11:23 Const General: cooperative, comfortable and no acute distress Nutritional Appearance: obese morbidly obese Orientation/consciousness: patient oriented x3 HENMT Head: Yes normocephalic and Yes atraumatic Ears: hearing grossly normal bilaterally, external ears normal, TM's normal bilaterally and EAC's normal General nose exam: Normal external nose present and No nasal discharge present Face and sinus: Yes sinuses nontender and Yes face symmetric Mouth: Normal oral and palatal mucosa present and moist mucous membranes Eyes General: appearance normal, both eyes and all related structures Neck Neck: Yes full ROM, Yes no lymphadenopathy, Yes supple and Yes no JVD Thyroid: Thyroid normal Resp Effort & Inspection: normal respiratory effort and able to speak in complete sentences Auscultation: clear to auscultation bilaterally Cardio Palpation: normal PMI Rate: regular rate Rhythm: regular rhythm Heart sounds: S1 normal heart sound present and S2 normal heart sound present GI Inspection: Yes Abdominal panniculus present and Yes obesity Palpation (GI): Soft to palpation, nontender, no guarding and no masses Auscultation: normal bowel sounds General: Yes no CVA tenderness Back/Spine/Pelvis Back: no CVA tenderness and No back tenderness Skin General skin exam: no rashes or lesions noted Neuro General: patient oriented x3, gait normal, tone normal, moves all extremities, Normal light touch and pain sensation, no focal motor deficits and CN's II-XI intact bilaterally Extrem General: Yes full ROM, Yes no joint enlargement, Yes no clubbing, cyanosis or edema, Yes no pedal edema, Yes no calf tenderness and Yes normal gait Results AMB Hemoglobin A1c AMB Hemoglobin A1c 7.5 % Last Edit by Jenifer Lozoya CMA on 05/06/23 11:32 Results Reviewed Results Reviewed: Laboratory Last Values Hgb A1c (Clinic) 7.5 % (4.0-6.0) H 05/06/23 11:30 Assessment and Plan Assessment & Plan (1) Diabetes mellitus with hyperglycemia: Code(s): E11.65 - Type 2 diabetes mellitus with hyperglycemia Qualifiers: 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 Reinforced importance of following healthy eating habits and getting regular exercise at least 3 times a week of cardio exercise or brisk walking. Will repeat fasting labs again in 3 month (2) Essential hypertension: Code(s): I10 - Essential (primary) hypertension Plan: Blood pressure at goal of less than 130/80. Continue with current medication. Reinforced importance of following a low sodium diet, getting regular exercise, and lowering stress levels. Orders: Orders AMB Hemoglobin A1c 05/06/23 E11.65 - Type 2 diabetes mellitus with hyperglycemia Aspartate Amino Transferase 07/23/23 E11.65 - Type 2 diabetes mellitus with hyperglycemia, I10 - Essential (primary) hypertension, E78.5 - Hyperlipidemia, unspecified Basic Metabolic Panel Fasting 07/23/23 E11.65 - Type 2 diabetes mellitus with hyperglycemia, I10 - Essential (primary) hypertension, E78.5 - Hyperlipidemia, unspecified Lipid Panel 07/23/23 E11.65 - Type 2 diabetes mellitus with hyperglycemia, I10 - Essential (primary) hypertension, E78.5 - Hyperlipidemia, unspecified Alanine Aminotransferase 07/23/23 E11.65 - Type 2 diabetes mellitus with hyperglycemia, I10 - Essential (primary) hypertension, E78.5 - Hyperlipidemia, unspecified Hemoglobin A1c 07/23/23 E11.65 - Type 2 diabetes mellitus with hyperglycemia, I10 - Essential (primary) hypertension, E78.5 - Hyperlipidemia, unspecified Medications: Changed From metformin ER 500 mg PO BID 3 months 180 tabs 2RF To metformin ER Take 1000 mg metformin in the morning with breakfast and mg at night with supper 270 tabs 2RF 3 months Coding Level of Care Code Est Pt Level 4 (77837) Complex EM visit Add On G2211 Diagnoses Type 2 diabetes mellitus with hyperglycemia, without long-term current use of insulin E11.65 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
== END 2023-05-06 12:00 | disposition home or self-care (01) ==
PROVIDERS: PCP Internal Medicine; Visit Provider Internal Medicine
DX: E11.65 Type 2 diabetes mellitus with hyperglycemia (principal); I10 Essential (primary) hypertension
CPT/HCPCS: 83036; 99499

== ENCOUNTER 2023-08-02 08:39 | Outpatient (REF) | payer MEDICARE, SELFPAY ==
[2023-08-02 11:00] LABS: Estimated Average Glucose 157 mg/dL; Hemoglobin A1c % 7.1 % (<6.0)
[2023-08-02 11:30] LABS: Alanine Aminotransferase 48 U/L (0-31); Anion Gap 14 (12-20); Aspartate Amino Transferase 30 U/L (5-31); Calcium 9.4 mg/dL (8.4-10.2); Carbon Dioxide 26 mmol/L (22-29); Chloride 105 mmol/L (96-108); Cholesterol 160 mg/dL (<200); Estimated Glomerular Filt Rate > 60; Glucose Fasting 159 mg/dL (60-99); HDL Cholesterol 59 mg/dL (>40); LDL Cholesterol Calculated 78 mg/dL (<100); Potassium 3.9 mmol/L (3.3-5.1); Sodium 141 mmol/L (135-145); Triglycerides 118 mg/dL (<150)
[2023-08-02 11:49] LABS: Blood Urea Nitrogen 17 mg/dL (9-16)
== END 2023-08-02 08:40 | disposition home or self-care (01) ==
LOC: HO.HMGCLDS 08:39
PROVIDERS: PCP Internal Medicine; Visit Provider Internal Medicine
DX: E11.65 Type 2 diabetes mellitus with hyperglycemia (principal); I10 Essential (primary) hypertension; E78.5 Hyperlipidemia, unspecified
CPT/HCPCS: 36415; 80048; 80061; 83036; 84450; 84460

== ENCOUNTER 2023-08-08 07:29 | Day surgery (SDC) | payer MEDICARE, SELFPAY ==
[2023-08-04 13:04] VITALS: BMI 44.1
[2023-08-08 07:42] VITALS: BP 194/83; PULSE 82; RESP 18; TEMP 36.3; O2SAT 97; BMI 44.6
[2023-08-08 08:07] VITALS: BP 152/80
[2023-08-08 08:11] LABS: Glucose, Whole Blood 150 mg/dL (60-115)
--- NOTE | 2023-08-08 08:40 | P.CONAN_ITS ---
FORMERLY [facility] Active Problems Active Problems: All Active Problems Diabetes mellitus with hyperglycemia (Acute) Tubular adenoma of colon (Acute) Morbid obesity (Acute) Essential hypertension (Acute) Dyslipidemia (high LDL; low HDL) (Acute) Past Medical History Medical History Diabetes mellitus with hyperglycemia Bilateral carpal tunnel syndrome Tubular adenoma of colon Leukocytosis Impaired fasting glucose Morbid obesity Essential hypertension Dyslipidemia (high LDL; low HDL) Family History Family History Father No problems noted. Mother No problems noted. Brother No problems noted. Sister No problems noted. Sister No problems noted. Surgical History Surgical History Hx of foot surgery H/O colonoscopy History of Problems with Anesthesia: No Social History Social History Housing: House Alcohol intake: current Alcohol intake frequency: does not drink Patient Tobacco Use Status: Never used Tobacco e-Cigarette/Vaping Use: Never Used Are you DNR?: No Advance Directives: No Advance Directives Information Provided: Yes Nutrition Risks: No Nutritional Risk service: No Current occupational status: employed Cognitive needs: No Hearing needs: No Vision needs: Yes Meds Allergies Allergy/AdvReac Type Severity Reaction Status Date / Time No Known Allergies Allergy Verified 05/06/23 11:24 Active Medications: Current Medications Sodium Biphosphate/Sodium Phosphate (Sodium Phosphate,[place]-Dibasic 133 Ml Enema) 133 ml ID ONCE PRN PRN Reason: Poor Colonoscopy Prep Results Exam Height,Weight and Vital Signs: Height 5 ft 2.5 in Weight 112.3 kg Last Vital Signs Temp 97.4 F 08/08/23 07:42 Pulse 82 08/08/23 07:42 Resp 18 08/08/23 07:42 BP 152/80 H 08/08/23 08:07 Pulse Ox 97 08/08/23 07:42 O2 Del Method Room Air 08/08/23 07:42 Pertinent Lab Results Pertinent Lab Results: Laboratory Tests 08/08/23 08:02 POC Glucose 150 H Airway Mallampati Class: III TM Dist: >3cm Neck ROM: Full Loose/Missing/Broken Teeth: No Heart: RRR Lungs: CTA Assessment and Plan Assessment Anesthesia Assessment: Anesthesia Plan Discussed and Chart Reviewed Final Anesthetic Review History of Problems with Anesthesia: No NPO: Yes ASA Class: III Final Preanesthetic Review: Meds/Allgs Chart Reviewed, Consent Obtained/Reviewed and Anes Risks/Benef Reviewed Patient Risk: Intermediate Procedure Risk: Low Anesthetic Plan Anesthetic Plan: MAC: Disposition: Standard PACU
--- NOTE | 2023-08-08 09:39 | PM.OP ---
Brief Operative Note Date of Service: 08/08/23 Pre-op diagnosis: Screening Post-op diagnosis: other (Diverticulosis) Procedure: Colonoscopy to the cecum Surgeon: Nick Bennett MD Anesthesia: MAC Was an Coordinator Of Library Services used for this Procedure?: No Estimated blood loss (mL): 0 Pathology: none sent Condition: stable Disposition: PACU
[2023-08-08 09:40] VITALS: BP 107/47; PULSE 80; RESP 18; TEMP 36.1; O2SAT 97
[2023-08-08 09:55] VITALS: BP 141/73; PULSE 75; RESP 14; TEMP 36.1; O2SAT 99
--- NOTE | 2023-08-08 11:02 | OP_ITS ---
DATE OF SERVICE: 08/08/2023 SURGEON: Nick Bennett MD INDICATIONS: The patient presents for followup of personal history of tubular adenoma of the colon and colorectal cancer screening. Full consent obtained from her for this, including risks of bleeding and perforation. PREOPERATIVE DIAGNOSIS: POSTOPERATIVE DIAGNOSIS: PROCEDURE PERFORMED: Colonoscopy to the cecum. ESTIMATED BLOOD LOSS: COMPLICATIONS: ANESTHESIA: Medication used; monitored anesthesia care. ASSISTANTS: SPECIMENS: PREOPERATIVE DIAGNOSES: Colorectal cancer screening and personal history of tubular adenoma of the colon. POSTOPERATIVE DIAGNOSES: Colorectal cancer screening and personal history of tubular adenoma of the colon, diverticulosis, and internal hemorrhoids. DESCRIPTION OF PROCEDURE: The patient was placed in the left lateral decubitus position. The digital rectal exam revealed no abnormalities. The Olympus videopediatric colonoscope was entered into the rectum and advanced easily to the cecum. Once in the cecum, I did identify normal-appearing cecal pouch with appendiceal orifice and a normal-appearing ileocecal valve. The entire cecum and ileocecal valve appeared normal. There was transillumination of light deep in the right lower quadrant. The scope was then slowly withdrawn assessing all mucosal surfaces carefully. Preparation was excellent. I did not visualize any sign of polyps, colitis, nor angiodysplasia. There was a mild amount of sigmoid diverticulosis. In the rectum, the scope was retroflexed visualizing some internal hemorrhoids, but no other pathology. The rectal mucosa appeared normal. The scope was straightened and withdrawn from the patient. She tolerated the procedure well and was returned to the recovery area in stable condition. IMPRESSION: 1. Diverticulosis. 2. Internal hemorrhoids. PLAN: Given the negative exam, but her previous history, I would recommend a followup colonoscopy in 5 years. She will otherwise see me on a p.r.n. basis. Nick Bennett MD RMLetty/PATTIL / [phone]
== END 2023-08-08 10:23 | disposition home or self-care (01) ==
PROVIDERS: PCP Internal Medicine; Visit Provider Internal Medicine
PROC: 0DJD8ZZ Inspection of Lower Intestinal Tract, Via Natural or Artificial Opening Endoscopic (ICD-10-PCS; CPT 45378; principal; 2023-08-08 08:40)
DX: Z12.11 Encounter for screening for malignant neoplasm of colon (principal); K57.30 Diverticulosis of large intestine without perforation or abscess without bleeding; K64.8 Other hemorrhoids; Z86.010 Personal history of colon polyps; E11.9 Type 2 diabetes mellitus without complications; I10 Essential (primary) hypertension; E78.5 Hyperlipidemia, unspecified; Z79.84 Long term (current) use of oral hypoglycemic drugs; Z79.82 Long term (current) use of aspirin; Z79.02 Long term (current) use of antithrombotics/antiplatelets; Z79.899 Other long term (current) drug therapy
CPT/HCPCS: G0105; 82947; J2704

== ENCOUNTER 2023-08-12 08:18 | Outpatient (AMB) | payer MEDICARE, SELFPAY ==
--- NOTE | 2023-08-12 08:18 | A.OFFPC_ITS ---
Intake Visit Reasons: f/u labs [phone] Intake Note: Pt is havng a telehealth visit to f/u DM labs Allergies No Known Allergies Allergy (Verified 08/12/23 08:23) Medication List - Last Reconciled 08/12/23 by Pam Pierce MD blood sugar diagnostic (FreeStyle Lite Strips) As directed blood-glucose meter (FreeStyle Lite Meter kit) Check blood sugar b.i.d. before meals lancets (FreeStyle Lancets) Check fasting glucose twice a day before meals lisinopril 10 mg PO DAILY metformin ER Take 1000 mg metformin in the morning with breakfast and 500mg at night with supper 3 months simvastatin 20 mg PO QPM Tobacco use date assessed: 08/12/23 Fall risk assessment: No Falls in past year Last assessed Fall Risk: 08/12/23 Dental Screening Dental Screen Date: 08/12/23 Did you have a dental visit in the last 12 months?: Yes Did you have a dental problem in the last 6 months where you did not have access to dental care?: No Was dental information given to patient?: Patient has dentist HPI f/u labs [phone] HPI Details 68-year-old lady with diabetes mellitus, hyperlipidemia hypertension, here today for follow-up. She has been taking her medications as directed, no adverse effects reported. Patient is very frustrated however that she is unable to lose the weight despite going to the gym and taking 3 classes 3 times a week and walking daily for exercise, has been compliant with her diet and medication. Diabetes control did improve from last visit, with a hemoglobin A1c now at 7.1%, LDL cholesterol is lower than last check and microalbumin screening is negative. She is up-to-date with her diabetes retinopathy screening and her vaccinations. [facility] Medical History Diabetes mellitus with hyperglycemia Bilateral carpal tunnel syndrome Tubular adenoma of colon Morbid obesity Essential hypertension Dyslipidemia (high LDL; low HDL) Surgical History Hx of foot surgery H/O colonoscopy Family History Father No problems noted. Mother No problems noted. Brother No problems noted. Sister No problems noted. Sister No problems noted. Social History Housing: House Alcohol intake: current Alcohol intake frequency: does not drink Patient Tobacco Use Status: Never used Tobacco e-Cigarette/Vaping Use: Never Used service: No Current occupational status: employed Cognitive needs: No Hearing needs: No Vision needs: Yes Questionnaire Thrive Questionnaire Date Thrive assessed: 05/06/23 WEI-7 AMB Questionnaire WEI-7 Date WEI - 7 assessed: 06/02/22 Source: Developed by Drs. Nick Fry, Leonor Alvarez, Rosendo Coronel and colleagues, with an educational angie from [employer]. Review of Systems Const Denies body aches, Denies fatigue, Denies fever(s), Denies headache(s) and Denies weakness Eyes Details: Up-to-date with her diabetes retinopathy screening, goes to [place] [facility] Denies change in vision ENT Denies dizziness, Denies headache(s), Denies nasal congestion, Denies nasal discharge and Denies sore throat Card Denies chest pain, Denies lightheadedness, Denies palpitations and Denies dyspnea Resp Denies chest congestion, Denies cough, Denies dyspnea and Denies wheezing GI Denies abdominal pain, Denies change in bowel habits and Denies heartburn Denies urinary frequency, Denies dysuria and Denies urinary urgency Musc Reports no additional complaints Skin/Breast Denies lesions and Denies rash Neuro Denies dizziness, Denies headache(s) and Denies weakness Psych Reports no additional complaints Endo Denies fatigue, Denies polydipsia, Denies polyuria and Denies palpitations Lucian/Lymph Denies easy bruising Aller/Immun Denies seasonal rhinorrhea and Denies wheezing Physical exam (Primary Care) Tobacco/Smoking Status: Tobacco use Status Tobacco use date assessed 05/06/23 08/12/23 08:18 Patient Tobacco Use Status Never used Tobacco 08/12/23 08:18 e-Cigarette/Vaping Use Never Used 08/12/23 08:18 Thrive Assessment: Date of Thrive Assessment Date Thrive assessed 05/06/23 08/12/23 08:18 Telehealth Telehealth Telehealth Platform: [facility] Location of provider rendering services: practice address Location of patient: address on file Patient Identification confirmed using: Name, : Yes Telehealth method: video Patient verbally consented to treatment: Yes Patient verbally consented to billing insurance company: Yes Patient informed of any privacy concerns related to visit: Yes Minutes spent on Phone/Video with Pt.: 15 Results Reviewed Results Reviewed: Laboratory Tests 05/06/23 08/02/23 08/08/23 10:10 08:46 08:02 POC Glucose 150 H Estimat Average Glucose 157 Hemoglobin A1c % 7.1 H Urine Creatinine 92.57 Urine Microalbumin 16.0 Microalb/Creat Ratio 17.2 Name: Teresa Clement Age/Sex: 68/F : 1955 Unit#: [id number] Attend Dr: Pam Pierce MD Re08/02/23 Status: DEP REF Location: [facility] Disch: SPEC : [id number] REMINGTON: 08/02/23 STATUS: COMP REQ : [id number] RECD: 08/02/23-[address]: Pam Pierce MD COMP: 08/02/23-1129 ENTERED: 08/02/[address]: ORDERED: Met Prof Fast, AST, ALT, Lipid Panel Test Result Flag Reference Sodium 141 135-145 mmol/L Potassium 3.9 3.3-5.1 mmol/L CL 105 96-108 mmol/L CO2 26 22-29 mmol/L Gap 14 12-20 BUN 17 H 9-16 mg/dL Creat 0.70 0.5-1.4 mg/dL EGFR > 60 NOTE: For -Macanese individuals, multiply the result by 1.210. Chronic Kidney Disease: Estimated GFR < 60 mL/min/1.73m2 Severe Kidney Disease: Estimated GFR < 15 mL/min/1.73m2 FBS 159 H 60-99 mg/dL A fasting glucose of 126 mg/dl or greater on more than one occasion is considered diagnostic of diabetes. CA 9.4 # 8.4-10.2 mg/dL AST (GOT) 30 5-31 U/L ALT (GPT) 48 H 0-31 U/L Triglyceride 118 <150 mg/dL Desirable Triglyceride: less than 150 mg/dL Borderline High Triglyceride 150-199 mg/dL High Triglyceride: 200-499 mg/dL Very High Triglyceride: greater than or equal to 5OO mg/dL Cholesterol 160 <200 mg/dL Desirable Cholesterol: less than 200 mg/dL Borderline High Cholesterol: 200-239 mg/dL High Cholesterol: greater than 239 mg/dL LDL Calculated 78 <100 mg/dL Desirable LDL: less than 100 mg/dL Near Optimal/Above Optimal LDL: 110-129 mg/dL Borderline High LDL: 130-159 mg/dL High LDL: 160-189 mg/dL Very High LDL: greater than or equal to 190 mg/dL HDL 59 >40 mg/dL Desirable HDL: greater than 40 mg/dL Note: This HDL assay may give artificially low results in patients with liver disease. 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 Will continue on metformin a 1000 mg in the morning and 500 mg at night, does not want to go higher on the dose. continue to check fasting blood sugar at home, maintain log and bring to next appointment for review. Reinforced diabetic diet and continue with regular exercise with patient. Up-to-date with her yearly diabetes retinopathy screening. Patient advised to inspect feet daily, for any signs of injury, callus or infection. Compliance with diet and regular exercise again stressed. Blood pressure goal is less than 130/80, goal LDL is less than 100 and goal hemoglobin A1c is less than 7% follow-up appointment made in--11/2023, after fasting labs done. (2) Dyslipidemia (high LDL; low HDL): Code(s): E78.5 - Hyperlipidemia, unspecified Plan: Reviewed recent fasting lipid profile with patient with levels within normal limits . Continue simvastatin 20 mg at night , in addition to adherence to low-cholesterol diet and regular exercise, at least 30 minutes 3 to 4 times a week. Advised patient to make healthy food choices, eat more fruits, vegetables, whole grains, wild caught fish and low-fat dairy. Limit amount of meat and fried or fatty food products, as well as processed foods and fast foods. Follow-up scheduled with repeat fasting lipid panel in 11/2023 (3) Essential hypertension: Code(s): I10 - Essential (primary) hypertension Plan: Continued on lisinopril 10 mg daily (4) Morbid obesity: Code(s): E66.01 - Morbid (severe) obesity due to excess calories Plan: Patient interested in taking the weight loss medication, Ozempic or Mounjaro, but would like to try lowering her weight and improving her diabetes control even further through diet and exercise, will see her back for follow-up in 11/2023 Orders: Orders Hemoglobin A1c 11/13/23 E11.65 - Type 2 diabetes mellitus with hyperglycemia, E66.01 - Morbid (severe) obesity due to excess calories, E78.5 - Hyperlipidemia, unspecified, I10 - Essential (primary) hypertension Alanine Aminotransferase 11/13/23 E11.65 - Type 2 diabetes mellitus with hyperglycemia, E66.01 - Morbid (severe) obesity due to excess calories, E78.5 - Hyperlipidemia, unspecified, I10 - Essential (primary) hypertension Aspartate Amino Transferase 11/13/23 E11.65 - Type 2 diabetes mellitus with hyperglycemia, E66.01 - Morbid (severe) obesity due to excess calories, E78.5 - Hyperlipidemia, unspecified, I10 - Essential (primary) hypertension Lipid Panel 11/13/23 E11.65 - Type 2 diabetes mellitus with hyperglycemia, E66.01 - Morbid (severe) obesity due to excess calories, E78.5 - Hyperlipidemia, unspecified, I10 - Essential (primary) hypertension Coding Level of Care Code Tele Est Pt Level 4 (11670) Complex EM visit Add On G2211 Diagnoses Type 2 diabetes mellitus with hyperglycemia, without long-term current use of insulin E11.65 Diabetes mellitus type: type 2 Diabetes mellitus correction insulin use: without intermodal 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
== END 2023-08-12 14:28 | disposition home or self-care (01) ==
LOC: HO.HMGC 08:18
PROVIDERS: PCP Internal Medicine; Visit Provider Internal Medicine
DX: E11.65 Type 2 diabetes mellitus with hyperglycemia (principal); E66.01 Morbid (severe) obesity due to excess calories; E78.5 Hyperlipidemia, unspecified; I10 Essential (primary) hypertension
CPT/HCPCS: 99214; G2211

== ENCOUNTER 2023-11-14 07:45 | Outpatient (REF) | payer MEDICARE, SELFPAY ==
[2023-11-14 10:47] LABS: Estimated Average Glucose 166 mg/dL; Hemoglobin A1c % 7.4 % (<6.0)
[2023-11-14 10:55] LABS: Alanine Aminotransferase 66 U/L (0-31); Aspartate Amino Transferase 50 U/L (5-31); Cholesterol 157 mg/dL (<200); HDL Cholesterol 61 mg/dL (>40); LDL Cholesterol Calculated 73 mg/dL (<100); Triglycerides 117 mg/dL (<150)
== END 2023-11-14 07:46 | disposition home or self-care (01) ==
LOC: HO.HMGCLDS 07:45
PROVIDERS: PCP Internal Medicine; Visit Provider Internal Medicine
DX: E11.65 Type 2 diabetes mellitus with hyperglycemia (principal); I10 Essential (primary) hypertension; E78.5 Hyperlipidemia, unspecified; E66.01 Morbid (severe) obesity due to excess calories
CPT/HCPCS: 36415; 80061; 83036; 84450; 84460

== ENCOUNTER 2023-11-22 12:57 | Outpatient (AMB) | payer MEDICARE, SELFPAY ==
[2023-11-22 13:06] VITALS: BP 124/76; PULSE 64; O2SAT 98; BMI 42.8
--- NOTE | 2023-11-22 13:06 | A.OFFPC_ITS ---
Vital Signs 11/22/23 13:06 Height 5 ft 2.5 in Weight 238 lb BMI 42.8 BP 124/76 Blood Pressure Location Rt brachial Position Sitting Pulse 64 Pulse Source Pulse Oximeter Pulse Oximetry (%) 98 Oxygen Delivery Method Room Air Intake Visit Reasons: 3M f/u Intake Note: Patient here for DM follow up Allergies No Known Allergies Allergy (Verified 11/22/23 13:24) Medication List - Last Reconciled 11/22/23 by Pam Pierce MD blood sugar diagnostic (FreeStyle Lite Strips) As directed blood-glucose meter (FreeStyle Lite Meter kit) Check blood sugar b.i.d. before meals lancets (FreeStyle Lancets) Check fasting glucose twice a day before meals lisinopril 10 mg PO DAILY metformin ER Take 1000 mg metformin in the morning with breakfast and 500mg at night with supper 3 months simvastatin 20 mg PO QPM Tobacco use date assessed: 08/12/23 Fall risk assessment: No Falls in past year Last assessed Fall Risk: 11/22/23 Dental Screening Dental Screen Date: 08/12/23 HPI 3M f/u HPI Details Please 8-year-old lady with diabetes mellitus, hypertension, and hyperlipidemia, here today for follow-up. She has been feeling well with no complaints at present time, compliant with taking her medications. [facility] Medical History Diabetes mellitus with hyperglycemia Bilateral carpal tunnel syndrome Tubular adenoma of colon Morbid obesity Essential hypertension Dyslipidemia (high LDL; low HDL) Surgical History Hx of foot surgery H/O colonoscopy Family History Father No problems noted. Mother No problems noted. Brother No problems noted. Sister No problems noted. Sister No problems noted. Social History Housing: House Alcohol intake: current Alcohol intake frequency: does not drink Patient Tobacco Use Status: Never used Tobacco e-Cigarette/Vaping Use: Never Used service: No Current occupational status: employed Cognitive needs: No Hearing needs: No Vision needs: Yes Questionnaire PHQ-9 Over the last 2 weeks, how often have you been bothered by any of the following problems? 1. Little interest or pleasure in doing things: not at all 2. Feeling down, depressed, or hopeless: not at all 3. Trouble falling or staying asleep, or sleeping too much: not at all 4. Feeling tired or having little energy: not at all 5. Poor appetite or overeating: not at all 6. Feeling bad about yourself - or that you are a failure or have let yourself or your family down: not at all 7. Trouble concentrating on things, such as reading the newspaper or watching television: not at all 8. Moving or speaking so slowly that other people could have noticed. Or the opposite - being so fidgety or restless that you have been moving around a lot more than usual: not at all 9. Thoughts that you would be better off or of hurting yourself in some way: not at all Total score: 0 Depression Screening Interpretation: Negative Depression Screening Done: Yes [id number] - PHQ-9 Billing: Yes Source: Developed by Drs. Nick Fry, Leonor Alvarez, Rosendo Coronel and colleagues, with an educational angie from [employer]. Thrive Questionnaire Date Thrive assessed: 05/06/23 I am a: Patient What is your living situation today?: I have a steady place to live Within the past 12 months, did the food you bought not last and you didn't have the money to get more?: Never true Within the past 12 months, did you worry whether your food would run out before you got money to buy more?: Never true Do you have trouble paying for medicines?: No Do you have trouble getting transportation to medical appointments?: No Do you have trouble paying your heating and electricity bill?: No Do you have trouble taking care of your child, family member or friend?: No Do you have trouble with day-to-day activities such as bathing, preparing meals, shopping, managing finances, etc.?: No Are you interested in more education?: No Please select the resources that you would like help with: None Currently or been in a relationship where the following occur: No concerns reported THRIVE Score: 0 AUDIT C Alcohol Use Questionnaire (AUDIT-C) 1. How often do you have a drink containing alcohol?: Never Total Score: 0 WEI-7 AMB Questionnaire WEI-7 Date WEI - 7 assessed: 06/02/22 Feeling nervous, anxious, or on edge: 0 = Not at all Not being able to stop or control worryin = Not at all Worrying too much about different things: 0 = Not at all Trouble relaxin = Not at all Being so restless that it is hard to sit still: 0 = Not at all Becoming easily annoyed or irritable: 0 = Not at all Feeling afraid as if something awful might happen: 0 = Not at all Total WEI-7 score (0-4 normal; 5-9 mild; 10-14 moderate; 15-21 severe): 0 Source: Developed by Drs. Nick Fry, Leonor Alvarez, Rosendo Coronel and colleagues, with an educational angie from [employer]. WEI-7 Assessment Billing WEI-7 Assessment Tool: WEI-7 Assessment 51661 Review of Systems Const Denies body aches, Denies fatigue, Denies fever(s), Denies headache(s) and Denies weakness Eyes Details: Up-to-date with her diabetes retinopathy screening, goes to [place] [facility] Denies change in vision ENT Denies dizziness, Denies headache(s), Denies nasal congestion, Denies nasal discharge and Denies sore throat Card Denies chest pain, Denies lightheadedness, Denies palpitations and Denies dyspnea Resp Denies chest congestion, Denies cough, Denies dyspnea and Denies wheezing GI Denies abdominal pain, Denies change in bowel habits and Denies heartburn Denies urinary frequency, Denies dysuria and Denies urinary urgency Musc Reports no additional complaints Skin/Breast Denies lesions and Denies rash Neuro Denies dizziness, Denies headache(s) and Denies weakness Psych Reports no additional complaints Endo Denies fatigue, Denies polydipsia, Denies polyuria and Denies palpitations Lucian/Lymph Denies easy bruising Aller/Immun Denies seasonal rhinorrhea and Denies wheezing Physical exam (Primary Care) Vital Signs: Last Vital Signs Pulse 64 11/22/23 13:06 BP 124/76 11/22/23 13:06 Pulse Ox 98 11/22/23 13:06 Oxygen Delivery Method Room Air 11/22/23 13:06 BMI result Body Mass Index 42.8 Tobacco/Smoking Status: Tobacco use Status Tobacco use date assessed 08/12/23 11/22/23 13:07 Patient Tobacco Use Status Never used Tobacco 11/22/23 13:07 e-Cigarette/Vaping Use Never Used 11/22/23 13:07 PHQ-9: PHQ-9 Score PHQ-9: Total score 0 11/22/23 13:45 Depression Screening Interpretation: Negative Thrive Assessment: Date of Thrive Assessment Date Thrive assessed 05/06/23 11/22/23 13:07 Currently or been in a relationship where the following occur: No concerns reported Const General: cooperative, comfortable and no acute distress Nutritional Appearance: obese morbidly obese Orientation/consciousness: patient oriented x3 HENMT Head: Yes normocephalic and Yes atraumatic Ears: hearing grossly normal bilaterally, external ears normal, TM's normal bilaterally and EAC's normal General nose exam: Normal external nose present and No nasal discharge present Face and sinus: Yes sinuses nontender and Yes face symmetric Mouth: Normal oral and palatal mucosa present and moist mucous membranes Eyes General: appearance normal, both eyes and all related structures Neck Neck: Yes full ROM, Yes no lymphadenopathy, Yes supple and Yes no JVD Thyroid: Thyroid normal Resp Effort & Inspection: normal respiratory effort and able to speak in complete sentences Auscultation: clear to auscultation bilaterally Cardio Palpation: normal PMI Rate: regular rate Rhythm: regular rhythm Heart sounds: S1 normal heart sound present and S2 normal heart sound present GI Inspection: Yes Abdominal panniculus present and Yes obesity Palpation (GI): Soft to palpation, nontender, no guarding and no masses Auscultation: normal bowel sounds General: Yes no CVA tenderness Back/Spine/Pelvis Back: no CVA tenderness and No back tenderness Skin General skin exam: no rashes or lesions noted Neuro General: patient oriented x3, gait normal, tone normal, moves all extremities, Normal light touch and pain sensation, no focal motor deficits and CN's II-XI intact bilaterally Extrem General: Yes full ROM, Yes no joint enlargement, Yes no clubbing, cyanosis or edema, Yes no pedal edema, Yes no calf tenderness and Yes normal gait Results Reviewed Results Reviewed: Name: Teresa Clement Age/Sex: 68/F : 1955 Unit#: [id number] Attend Dr: Pam Piecre MD Re11/14/23 Status: DEP REF Location: [facility] Disch: SPEC : [id number] REMINGTON: 11/14/23 STATUS: COMP REQ : [id number] RECD: 11/14/23-[address]: Pam Pierce MD COMP: 11/14/23 ENTERED: 11/14/[address]: ORDERED: Hgb A1c Test Result Flag Reference A1c % 7.4 H <6.0 % Hemoglobin A1C Reference Range Adults: 4.8 - 6.0 % Non diabetic: < 6.0 % Goal: < 7.0 % Additional Action Suggested: > 8.0 % Note: Hemoglobin A1c results are invalid for patients with abnormal amounts of HbF. Blood transfusions may impact the HbA1c concentration in the patient sample. Est. Avg. Gluc 166 mg/dL eAG = Estimated average glucose which is %A1C expressed as average glucose, using the formula of the T4A-Qywiwgo Average Glucose study (ADAG), Diabetes Care, Vol.31,#8, 2007 Name: Teresa Clement Age/Sex: 68/F : 1955 Unit#: [id number] Attend Dr: Pam Pierce MD Re11/14/23 Status: DEP [facility] Disch: SPEC : [id number] REMINGTON: 11/14/23 STATUS: COMP REQ : [id number] RECD: 11/14/23-[address]: Pam Pierce MD COMP: 11/14/23 ENTERED: 11/14/[address]: ORDERED: AST, ALT, Lipid Panel Test Result Flag Reference AST (GOT) 50 H 5-31 U/L ALT (GPT) 66 H 0-31 U/L Triglyceride 117 <150 mg/dL Desirable Triglyceride: less than 150 mg/dL Borderline High Triglyceride 150-199 mg/dL High Triglyceride: 200-499 mg/dL Very High Triglyceride: greater than or equal to 5OO mg/dL Cholesterol 157 <200 mg/dL Desirable Cholesterol: less than 200 mg/dL Borderline High Cholesterol: 200-239 mg/dL High Cholesterol: greater than 239 mg/dL LDL Calculated 73 <100 mg/dL Desirable LDL: less than 100 mg/dL Near Optimal/Above Optimal LDL: 110-129 mg/dL Borderline High LDL: 130-159 mg/dL High LDL: 160-189 mg/dL Very High LDL: greater than or equal to 190 mg/dL HDL 61 >40 mg/dL Desirable HDL: greater than 40 mg/dL Note: This HDL assay may give artificially low results in patients with liver disease. 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: without buttermaker continuous churn use Diabetes mellitus type: type 2 Morbid obesity E66.01 Dyslipidemia (high LDL; low HDL) E78.5 Essential hypertension I10 Additional Codes WEI-7 Assessment Billing - WEI-7 Assessment Tool: WEI-7 Assessment 24721 ([id number]) Assessment & Plan Assessment & Plan (1) Diabetes mellitus with hyperglycemia: Code(s): E11.65 - Type 2 diabetes mellitus with hyperglycemia Category: Medical Qualifiers: 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 Continue with metformin ER at the same dose. Continue checking blood sugar at home and keep a log of the readings, will see her back for follow-up in 3 months' after repeat fasting labs done. (2) Morbid obesity: Code(s): E66.01 - Morbid (severe) obesity due to excess calories Category: Medical Plan: Continue adherence to healthy eating habits and continue doing regular exercise at least 32 minutes to an hour daily (3) Dyslipidemia (high LDL; low HDL): Code(s): E78.5 - Hyperlipidemia, unspecified Category: Medical Plan: Recent lipid levels are within normal limits, continued on simvastatin 20 mg daily at night (4) Essential hypertension: Code(s): I10 - Essential (primary) hypertension Category: Medical Plan: Blood pressure at goal of less than 130/80. Continue with current medication. Reinforced importance of following a low sodium diet, getting regular exercise, and lowering stress levels. Orders: Orders Microalbumin, Random (w Creat) 02/22/24 E11.65 - Type 2 diabetes mellitus with hyperglycemia, E66.01 - Morbid (severe) obesity due to excess calories, E78.5 - Hyperlipidemia, unspecified, I10 - Essential (primary) hypertension Hemoglobin A1c 02/22/24 E11.65 - Type 2 diabetes mellitus with hyperglycemia, E66.01 - Morbid (severe) obesity due to excess calories, E78.5 - Hyperlipidemia, unspecified, I10 - Essential (primary) hypertension Alanine Aminotransferase 02/22/24 E11.65 - Type 2 diabetes mellitus with hyperglycemia, E66.01 - Morbid (severe) obesity due to excess calories, E78.5 - Hyperlipidemia, unspecified, I10 - Essential (primary) hypertension TSH reflex Free T4 02/22/24 E11.65 - Type 2 diabetes mellitus with hyperglycemia, E66.01 - Morbid (severe) obesity due to excess calories, E78.5 - Hyperlipidemia, unspecified, I10 - Essential (primary) hypertension Lipid Panel 02/22/24 E11.65 - Type 2 diabetes mellitus with hyperglycemia, E66.01 - Morbid (severe) obesity due to excess calories, E78.5 - Hyperlipidemia, unspecified, I10 - Essential (primary) hypertension Aspartate Amino Transferase 02/22/24 E11.65 - Type 2 diabetes mellitus with hyperglycemia, E66.01 - Morbid (severe) obesity due to excess calories, E78.5 - Hyperlipidemia, unspecified, I10 - Essential (primary) hypertension Basic Metabolic Panel Fasting 02/22/24 E11.65 - Type 2 diabetes mellitus with hyperglycemia, E66.01 - Morbid (severe) obesity due to excess calories, E78.5 - Hyperlipidemia, unspecified, I10 - Essential (primary) hypertension Vitamin D 25-OH Total 02/22/24 E11.65 - Type 2 diabetes mellitus with hyperglycemia, E66.01 - Morbid (severe) obesity due to excess calories, E78.5 - Hyperlipidemia, unspecified, I10 - Essential (primary) hypertension Medications: New semaglutide (Ozempic) for 4 weeks 0.25 mg (0.368 mL) subcut QWEEK 3 mL 2RF 30 days E11.65 - Type 2 diabetes mellitus with hyperglycemia, E66.01 - Morbid (severe) obesity due to excess calories
== END 2023-11-22 13:48 | disposition home or self-care (01) ==
PROVIDERS: PCP Internal Medicine; Visit Provider Internal Medicine
DX: E11.65 Type 2 diabetes mellitus with hyperglycemia (principal); E66.813 Obesity, class 3; Z68.41 Body mass index [BMI] 40.0-44.9, adult; E78.5 Hyperlipidemia, unspecified; I10 Essential (primary) hypertension

== ENCOUNTER → 2023-11-22 12:57 | Outpatient (BNVA) | payer MEDICARE, SELFPAY | PROVIDERS: PCP Internal Medicine; Visit Provider Internal Medicine | DX: E11.65 Type 2 diabetes mellitus with hyperglycemia (principal); E66.01 Morbid (severe) obesity due to excess calories; Z68.41 Body mass index [BMI] 40.0-44.9, adult; E78.5 Hyperlipidemia, unspecified; I10 Essential (primary) hypertension; Z71.3 Dietary counseling and surveillance; Z79.84 Long term (current) use of oral hypoglycemic drugs | CPT/HCPCS: 96127; 99212 ==

== ENCOUNTER 2024-01-16 11:25 | Outpatient (REF) | payer MEDICARE, SELFPAY ==
[2024-01-16 17:37] LABS: Influenza A PCR NEGATIVE (Negative); Influenza B PCR NEGATIVE (Negative); Resp Syncy Virus RNA Qual PCR NEGATIVE (Negative); SARS COV2 PCR INHOUSE NEGATIVE (Negative)
== END 2024-01-16 11:26 | disposition home or self-care (01) ==
LOC: HO.LNP 11:25
PROVIDERS: PCP Internal Medicine; Visit Provider Internal Medicine
DX: J06.9 Acute upper respiratory infection, unspecified (principal); R05.3 Chronic cough; R09.89 Other specified symptoms and signs involving the circulatory and respiratory systems
CPT/HCPCS: 0241U; 99212

== ENCOUNTER 2024-01-16 11:25 | Outpatient (AMB) | payer MEDICARE, SELFPAY ==
[2024-01-16 12:08] VITALS: BP 126/80; PULSE 75; O2SAT 98; BMI 40.5
--- NOTE | 2024-01-16 12:08 | MHC.PC.OV ---
Vital Signs 01/16/24 12:08 Height 5 ft 2.5 in Weight 225 lb BMI 40.5 BP 126/80 Blood Pressure Location Rt brachial Position Sitting Pulse 75 Pulse Source Pulse Oximeter Pulse Oximetry (%) 98 Oxygen Delivery Method Room Air Intake Visit Reasons: Cough Intake Note: Pt is here today c/o coughing and chest congestion x3wk Allergies No Known Allergies Allergy (Verified 01/16/24 12:29) Medication List - Last Reconciled 01/16/24 by Pam Pierce MD blood sugar diagnostic (FreeStyle Lite Strips) As directed blood-glucose meter (FreeStyle Lite Meter kit) Check blood sugar b.i.d. before meals lancets (FreeStyle Lancets) Check fasting glucose twice a day before meals lisinopril 10 mg PO DAILY metformin ER Take 1000 mg metformin in the morning with breakfast and 500mg at night with supper 3 months semaglutide (Ozempic) 0.25 mg (0.368 mL) subcut QWEEK 30 days simvastatin 20 mg PO QPM Tobacco use date assessed: 01/16/24 Fall risk assessment: No Falls in past year Last assessed Fall Risk: 01/16/24 Dental Screening Dental Screen Date: 01/16/24 Did you have a dental visit in the last 12 months?: Yes Did you have a dental problem in the last 6 months where you did not have access to dental care?: No Was dental information given to patient?: Patient has dentist HPI Cough HPI Details 69-year-old female presenting with a persistent cough for three weeks. The cough began after turning on the oil-based heating system in her home. The patient reports an absence of fever, shortness of breath, chest pain, dizziness, sore throat, sinus tenderness, or additional associated symptoms. The cough appears to improve when she leaves her home. She denies pre-existing conditions such as asthma and notes a greater incidence of coughing while indoors. The patient lives alone, and while she acknowledges recent familial exposure to pneumonia, she has not had a fever. She has not been using any medications for the cough thus far. [facility] Medical History Diabetes mellitus with hyperglycemia Bilateral carpal tunnel syndrome Tubular adenoma of colon Morbid obesity Essential hypertension Dyslipidemia (high LDL; low HDL) Surgical History Hx of foot surgery H/O colonoscopy Family History Father No problems noted. Mother No problems noted. Brother No problems noted. Sister No problems noted. Sister No problems noted. Social History Housing: House Alcohol intake: current Alcohol intake frequency: does not drink Patient Tobacco Use Status: Never used Tobacco e-Cigarette/Vaping Use: Never Used service: No Current occupational status: employed Cognitive needs: No Hearing needs: No Vision needs: Yes Questionnaire Thrive Questionnaire Date Thrive assessed: 11/22/23 I am a: Patient What is your living situation today?: I have a steady place to live Within the past 12 months, did the food you bought not last and you didn't have the money to get more?: Never true Within the past 12 months, did you worry whether your food would run out before you got money to buy more?: Never true Do you have trouble paying for medicines?: No Do you have trouble getting transportation to medical appointments?: No Do you have trouble paying your heating and electricity bill?: No Do you have trouble taking care of your child, family member or friend?: No Do you have trouble with day-to-day activities such as bathing, preparing meals, shopping, managing finances, etc.?: No Are you currently unemployed and looking for a job?: No Are you interested in more education?: No Please select the resources that you would like help with: None Currently or been in a relationship where the following occur: No concerns reported THRIVE Score: 0 WEI-7 AMB Questionnaire WEI-7 Date WEI - 7 assessed: 06/02/22 Source: Developed by Drs. Nick Fry, Leonor Alvarez, Rosendo Coronel and colleagues, with an educational angie from [employer]. Review of Systems Const All systems reviewed & are unremarkable except as noted in HPI and below Physical exam (Primary Care) Vital Signs: Last Vital Signs Pulse 75 01/16/24 12:08 BP 126/80 01/16/24 12:08 Pulse Ox 98 01/16/24 12:08 Oxygen Delivery Method Room Air 01/16/24 12:08 BMI result Body Mass Index 40.5 Tobacco/Smoking Status: Tobacco use Status Tobacco use date assessed 01/16/24 01/16/24 12:11 Patient Tobacco Use Status Never used Tobacco 01/16/24 12:11 e-Cigarette/Vaping Use Never Used 01/16/24 12:11 Thrive Assessment: Date of Thrive Assessment Date Thrive assessed 11/22/23 01/16/24 12:11 Currently or been in a relationship where the following occur: No concerns reported Const General: comfortable and no acute distress Orientation/consciousness: patient oriented x3 HENMT Ears: hearing grossly normal bilaterally, external ears normal, TM's normal bilaterally and EAC's normal General nose exam: Normal external nose present and No nasal discharge present Face and sinus: Yes sinuses nontender and Yes face symmetric Mouth: Normal oral and palatal mucosa present and moist mucous membranes Eyes General: appearance normal, both eyes and all related structures Neck Neck: Yes full ROM, Yes no lymphadenopathy, Yes supple and Yes no JVD Thyroid: Thyroid normal Resp Effort & Inspection: normal respiratory effort and able to speak in complete sentences Auscultation: clear to auscultation bilaterally Cardio Palpation: normal PMI Rate: regular rate Rhythm: regular rhythm Heart sounds: S1 normal heart sound present and S2 normal heart sound present Skin General skin exam: no rashes or lesions noted Neuro General: patient oriented x3, gait normal, tone normal, moves all extremities, Normal light touch and pain sensation, no focal motor deficits and CN's II-XI intact bilaterally Coding Level of Care Code Est Pt Level 3 (49336) Diagnoses Acute upper respiratory infection J06.9 Persistent cough for 3 weeks or longer R05.3 Assessment & Plan Assessment & Plan (1) Acute upper respiratory infection: Code(s): J06.9 - Acute upper respiratory infection, unspecified (2) Persistent cough for 3 weeks or longer: Code(s): R05.3 - Chronic cough Plan - Persistent Cough: Consider reactive airway disease. Advised the patient to initiate use of myul-jvg-xkktcbi antihistamines such as Regina fexofenadine) 180 mg once daily. Monitor symptom progress over one week. - Testing: RSV, influenza, and COVID-19 tests have been ordered. - Consider further evaluation or treatments if symptoms persist or worsen, including imaging or additional respiratory assessment. - Begin taking Regina (fexofenadine) 180 mg once daily for one week. - Monitor your symptoms and note any changes or improvement. - Await results for RSV, influenza, and COVID-19 tests. - If no contact has been made regarding test results, assume negative outcomes. - Contact medical provider if the cough persists beyond one week or if symptoms worsen. - Consider flu vaccination post-resolution of current symptoms. Patient was informed and verbally consented to the use of an ambient scribe for clinic note documentation during this visit. Orders: Orders SARS-CoV2/FLU/RSV 01/16/24 J06.9 - Acute upper respiratory infection, unspecified, R09.89 - Other specified symptoms and signs involving the circulatory and respiratory systems Medications: New fexofenadine (Regina Allergy) 180 mg PO Q24H 30 tabs 0RF
== END 2024-01-16 13:37 | disposition home or self-care (01) ==
PROVIDERS: PCP Internal Medicine; Visit Provider Internal Medicine
DX: J06.9 Acute upper respiratory infection, unspecified (principal); R05.3 Chronic cough

== ENCOUNTER 2024-02-28 07:13 | Outpatient (REF) | payer MEDICARE, SELFPAY ==
[2024-02-28 10:17] LABS: Estimated Average Glucose 131 mg/dL; Hemoglobin A1C 173.3847 umol/L; Hemoglobin A1c % 6.2 % (<6.0); Total Hemoglobin (HGBA1C) 3941.0534 umol/L
[2024-02-28 10:24] LABS: Creatinine Urine 425.46 mg/dL; Microalbum/Creatinine Ratio Ur 9.6 ug/mg cr (<30)
[2024-02-28 13:30] LABS: Alanine Aminotransferase 40 U/L (0-31); Anion Gap 12 (12-20); Aspartate Amino Transferase 32 U/L (5-31); Blood Urea Nitrogen 13 mg/dL (9-16); Calcium 9.6 mg/dL (8.4-10.2); Carbon Dioxide 25 mmol/L (22-29); Chloride 107 mmol/L (96-108); Cholesterol 171 mg/dL (<200); Estimated Glomerular Filt Rate > 60; Glucose Fasting 128 mg/dL (60-99); HDL Cholesterol 65 mg/dL (>40); LDL Cholesterol Calculated 87 mg/dL (<100); Potassium 4.2 mmol/L (3.3-5.1); Sodium 140 mmol/L (135-145); Triglycerides 98 mg/dL (<150)
[2024-02-28 13:44] LABS: TSH reflex Free T4 1.57 uIU/mL (0.32-4.0); Vitamin D 25-OH Total 35.4 ng/mL (>30)
== END 2024-02-28 07:14 | disposition home or self-care (01) ==
LOC: HO.HMGCLDS 07:13
PROVIDERS: PCP Internal Medicine; Visit Provider Internal Medicine
DX: E11.65 Type 2 diabetes mellitus with hyperglycemia (principal); E66.01 Morbid (severe) obesity due to excess calories; I10 Essential (primary) hypertension; E78.5 Hyperlipidemia, unspecified
CPT/HCPCS: 36415; 80048; 80061; 82043; 82306; 82570; 83036; 84443; 84450; 84460

== ENCOUNTER 2024-03-08 13:30 | Outpatient (AMB) | payer MEDICARE, SELFPAY ==
--- NOTE | 2024-03-08 13:40 | A.OFFPC_ITS ---
Vital Signs 03/08/24 13:42 Height 5 ft 2.5 in Weight 227 lb BMI 40.9 BP 130/76 Blood Pressure Location Rt brachial Position Sitting Pulse 64 Pulse Source Pulse Oximeter Pulse Oximetry (%) 99 Oxygen Delivery Method Room Air Intake Visit Reasons: 3 months f/up Intake Note: Pt is here today for her 3mo. f/u Allergies No Known Allergies Allergy (Verified 03/08/24 13:50) Medication List - Last Reconciled 03/08/24 by Pam Pierce MD blood sugar diagnostic (FreeStyle Lite Strips) As directed blood-glucose meter (FreeStyle Lite Meter kit) Check blood sugar b.i.d. before meals lancets (FreeStyle Lancets) Check fasting glucose twice a day before meals lisinopril 10 mg PO DAILY metformin ER Take 1000 mg metformin in the morning with breakfast and 500mg at night with supper 3 months semaglutide (Ozempic) 0.25 mg (0.368 mL) subcut QWEEK 30 days simvastatin 20 mg PO QPM Tobacco use date assessed: 03/08/24 Fall risk assessment: No Falls in past year Last assessed Fall Risk: 03/08/24 Dental Screening Dental Screen Date: 03/08/24 Did you have a dental visit in the last 12 months?: Yes Did you have a dental problem in the last 6 months where you did not have access to dental care?: No Was dental information given to patient?: Patient has dentist HPI 3 months f/up HPI Details 69-year-old lady with hypertension, hype rlipidemia and diabetes mellitus, here today for her follow-up. She has been compliant with taking her medications currently on metformin a 1000 mg in the morning and 500 mg at night with supper and has started Ozempic to 0.5 mg once a week on last visit. Zuri nt states that she has been tolerating medication well, has been compliant with following a healthy diet and has been exercising. Have been some times that she would feel dizzy and will check her blood sugar and would notice that it was falling to the 60s. She would then taken orange juice which would help resolve her hypoglycemic attacks. This has happened only once or twice since her last visit. Latest fasting labs showed hemoglobin A1c now at 6.2% with fasting lipids within normal limits, blood pressure also within normal limits. Has lost some weight since starting the medication. She is up-to-date with her diabetes eye exam, goes to [facility] with no retinopathy seen. Urine microalbumin came back negative FOR[facility]LY [facility] Medical History Type 2 diabetes mellitus without complication, without long-term current use of insulin Diabetes mellitus with hyperglycemia Bilateral carpal tunnel syndrome Tubular adenoma of colon Morbid obesity Essential hypertension Dyslipidemia (high LDL; low HDL) Surgical History Hx of foot surgery H/O colonoscopy Family History Father No problems noted. Mother No problems noted. Brother No problems noted. Sister No problems noted. Sister No problems noted. Social History Housing: House Alcohol intake: current Alcohol intake frequency: does not drink Patient Tobacco Use Status: Never used Tobacco e-Cigarette/Vaping Use: Never Used service: No Current occupational status: employed Cognitive needs: No Hearing needs: No Vision needs: Yes Questionnaire PHQ-9 Over the last 2 weeks, how often have you been bothered by any of the following problems? 1. Little interest or pleasure in doing things: not at all 2. Feeling down, depressed, or hopeless: not at all 3. Trouble falling or staying asleep, or sleeping too much: not at all 4. Feeling tired or having little energy: not at all 5. Poor appetite or overeating: not at all 6. Feeling bad about yourself - or that you are a failure or have let yourself or your family down: not at all 7. Trouble concentrating on things, such as reading the newspaper or watching television: not at all 8. Moving or speaking so slowly that other people could have noticed. Or the opposite - being so fidgety or restless that you have been moving around a lot more than usual: not at all 9. Thoughts that you would be better off or of hurting yourself in some way: not at all Total score: 0 Depression Screening Interpretation: Negative Depression Screening Done: Yes 86165 - PHQ-9 Billing: Yes Source: Developed by Drs. Nick Fry, Leonor Alvarez, Rosendo Coronel and colleagues, with an educational angie from [employer]. Thrive Questionnaire Date Thrive assessed: 03/08/24 Currently or been in a relationship where the following occur: No concerns reported THRIVE Score: 0 AUDIT C Alcohol Use Questionnaire (AUDIT-C) 1. How often do you have a drink containing alcohol?: Never Total Score: 0 WEI-7 AMB Questionnaire WEI-7 Date WEI - 7 assessed: 03/08/24 Feeling nervous, anxious, or on edge: 0 = Not at all Not being able to stop or control worryin = Not at all Worrying too much about different things: 0 = Not at all Trouble relaxin = Not at all Being so restless that it is hard to sit still: 0 = Not at all Becoming easily annoyed or irritable: 0 = Not at all Feeling afraid as if something awful might happen: 0 = Not at all Total WEI-7 score (0-4 normal; 5-9 mild; 10-14 moderate; 15-21 severe): 0 Source: Developed by Drs. Nick Fry, Leonor Alvarez, oRsendo Coronel and colleagues, with an educational angie from [employer]. WEI-7 Assessment Billing WEI-7 Assessment Tool: WEI-7 Assessment 81960 Review of Systems Const All systems reviewed & are unremarkable except as noted in HPI and below Physical exam (Primary Care) Vital Signs: Last Vital Signs Pulse 64 03/08/24 13:42 BP 130/76 03/08/24 13:42 Pulse Ox 99 03/08/24 13:42 Oxygen Delivery Method Room Air 03/08/24 13:42 BMI result Body Mass Index 40.9 Tobacco/Smoking Status: Tobacco use Status Tobacco use date assessed 03/08/24 03/08/24 13:45 Patient Tobacco Use Status Never used Tobacco 03/08/24 13:41 e-Cigarette/Vaping Use Never Used 03/08/24 13:41 PHQ-9: PHQ-9 Score PHQ-9: Total score 0 03/08/24 13:41 Depression Screening Interpretation: Negative Thrive Assessment: Date of Thrive Assessment Date Thrive assessed 03/08/24 03/08/24 13:41 Currently or been in a relationship where the following occur: No concerns reported Const General: comfortable and no acute distress Orientation/consciousness: patient oriented x3 HENMT Ears: hearing grossly normal bilaterally and external ears normal General nose exam: Normal external nose present Face and sinus: Yes face symmetric Mouth: Normal oral and palatal mucosa present and moist mucous membranes Eyes General: appearance normal, both eyes and all related structures Neck Neck: Yes full ROM, Yes no lymphadenopathy, Yes supple and Yes no JVD Thyroid: Thyroid normal Resp Effort & Inspection: normal respiratory effort and able to speak in complete sentences Auscultation: clear to auscultation bilaterally Cardio Palpation: normal PMI Rate: regular rate Rhythm: regular rhythm Heart sounds: S1 normal heart sound present and S2 normal heart sound present Neuro General: patient oriented x3, gait normal, tone normal, moves all extremities, Normal light touch and pain sensation, no focal motor deficits, CN's II-XI intact bilaterally and normal sensation to monofilament Extrem General: Yes full ROM, Yes no clubbing, cyanosis or edema, Yes no calf tenderness and Yes normal gait Results Reviewed Results Reviewed: Laboratory Tests 05/06/23 05/06/23 11/14/23 10:10 11:30 08:19 Estimat Average Glucose 166 Hgb A1c (Clinic) 7.5 H Hemoglobin A1c % 7.4 H Urine Creatinine 92.57 Urine Microalbumin 16.0 Microalb/Creat Ratio 17.2 02/28/24 07:16 Estimat Average Glucose 131 Hgb A1c (Clinic) Hemoglobin A1c % 6.2 H Urine Creatinine 425.46 Urine Microalbumin 41.0 Microalb/Creat Ratio 9.6 cayden: Teresa Clement Age/Sex: 69/F : 1955 Unit#: [id number] Attend Dr: Pam Pierce MD Re02/28/24 Status: DEP REF Location: [facility] Disch: SPEC : [id number] REMINGTON: 02/28/24 STATUS: COMP REQ : [id number] RECD: 02/28/[address]: Pam Pierce MD COMP: 02/28/241344 ENTERED: 02/28/[address]: ORDERED: Met Prof Fast, AST, ALT, Lipid Panel, Vitamin D 25-OH, TSH Rflx Test Result Flag Reference Sodium 140 135-145 mmol/L Potassium 4.2 3.3-5.1 mmol/L CL 107 96-108 mmol/L CO2 25 22-29 mmol/L Gap 12 12-20 BUN 13 9-16 mg/dL Creat 0.73 0.5-1.4 mg/dL eGFR > 60 Chronic Kidney Disease: Estimated GFR < 60 mL/min/1.73m2 Severe Kidney Disease: Estimated GFR < 15 mL/min/1.73m2 FBS 128 H 60-99 mg/dL A fasting glucose of 126 mg/dl or greater on more than one occasion is considered diagnostic of diabetes. CA 9.6 8.4-10.2 mg/dL AST (GOT) 32 H 5-31 U/L ALT (GPT) 40 H 0-31 U/L Triglyceride 98 <150 mg/dL Desirable Triglyceride: less than 150 mg/dL Borderline High Triglyceride 150-199 mg/dL High Triglyceride: 200-499 mg/dL Very High Triglyceride: greater than or equal to 5OO mg/dL Cholesterol 171 <200 mg/dL Desirable Cholesterol: less than 200 mg/dL Borderline High Cholesterol: 200-239 mg/dL High Cholesterol: greater than 239 mg/dL LDL Calculated 87 <100 mg/dL Desirable LDL: less than 100 mg/dL Near Optimal/Above Optimal LDL: 110-129 mg/dL Borderline High LDL: 130-159 mg/dL High LDL: 160-189 mg/dL Very High LDL: greater than or equal to 190 mg/dL HDL 65 >40 mg/dL Desirable HDL: greater than 40 mg/dL Note: This HDL assay may give artificially low results in patients with liver disease. Vit D 25-OH Tot 35.4 >30 ng/mL Health Based Reference Values* < 20 ng/mL Deficient 20-30 ng/mL Insufficient > 30 ng/mL Sufficient *Maurice ARCHER. N Engl J Med. 2007;357:266-280 Care must be taken in interpreting Vitamin D results from different laboratories and methodologies. Published data demonstrated that results from patients undergoing hemodialysis may show a negative bias when tested with various automated 25-OH vitamin D assays when compared to LC-MS/MS. When testing samples from patients whose predominant form of Vitamin D is Vitamin D2, such as patients receiving Vitamin D2 supplementation, results that are subtherapeutic should be confirmed with another method such as LC-MS/MS. TSH 1.57 0.32-4.0 uIU/mL Coding Level of Care Code Est Pt Level 4 (57735) Complex EM visit Add On G2211 Diagnoses Type 2 diabetes mellitus without complication, without long-term current use of insulin E11.9 Essential hypertension I10 Dyslipidemia (high LDL; low HDL) E78.5 Additional Codes PHQ-9 - 57656 - PHQ-9 Billing: Yes ([id number]) WEI-7 Assessment Billing - WEI-7 Assessment Tool: WEI-7 Assessment 26780 ([id number]) Assessment & Plan Assessment & Plan (1) Type 2 diabetes mellitus without complication, without long-term current use of insulin: Code(s): E11.9 - Type 2 diabetes mellitus without complications Category: Medical Plan: Will continue on current dose of metformin and Ozempic, refill sent. Reinforced importance of following recommended diet and getting regular exercise. Up-to-date with her diabetes retinopathy screening, will see her back in 07/10/2024 after fasting labs done (2) Essential hypertension: Code(s): I10 - Essential (primary) hypertension Category: Medical Plan: Blood pressure at goal of less than 130/80. Continue with current medication. Reinforced importance of following a low sodium diet, getting regular exercise, and lowering stress levels. (3) Dyslipidemia (high LDL; low HDL): Code(s): E78.5 - Hyperlipidemia, unspecified Category: Medical Plan: Reviewed recent fasting lipids which were within normal limits, will continue on simvastatin 20 mg at bedtime. Orders: Orders Lipid Panel 06/21/24 E11.9 - Type 2 diabetes mellitus without complications, E66.01 - Morbid (severe) obesity due to excess calories, E78.5 - Hyperlipidemia, unspecified, I10 - Essential (primary) hypertension, Z78.0 - Asymptomatic menopausal state Microalbumin, Random (w Creat) 06/21/24 E11.9 - Type 2 diabetes mellitus without complications, E66.01 - Morbid (severe) obesity due to excess calories, E78.5 - Hyperlipidemia, unspecified, I10 - Essential (primary) hypertension, Z78.0 - Asymptomatic menopausal state Basic Metabolic Panel Fasting 06/21/24 E11.9 - Type 2 diabetes mellitus without complications, E66.01 - Morbid (severe) obesity due to excess calories, E78.5 - Hyperlipidemia, unspecified, I10 - Essential (primary) hypertension, Z78.0 - Asymptomatic menopausal state Aspartate Amino Transferase 06/21/24 E11.9 - Type 2 diabetes mellitus without complications, E66.01 - Morbid (severe) obesity due to excess calories, E78.5 - Hyperlipidemia, unspecified, I10 - Essential (primary) hypertension, Z78.0 - Asymptomatic menopausal state Alanine Aminotransferase 06/21/24 E11.9 - Type 2 diabetes mellitus without complications, E66.01 - Morbid (severe) obesity due to excess calories, E78.5 - Hyperlipidemia, unspecified, I10 - Essential (primary) hypertension, Z78.0 - Asymptomatic menopausal state Vitamin D 25-OH Total 06/21/24 E11.9 - Type 2 diabetes mellitus without complications, E66.01 - Morbid (severe) obesity due to excess calories, E78.5 - Hyperlipidemia, unspecified, I10 - Essential (primary) hypertension, Z78.0 - Asymptomatic menopausal state Hemoglobin A1c 06/21/24 E11.9 - Type 2 diabetes mellitus without complications, E66.01 - Morbid (severe) obesity due to excess calories, E78.5 - Hyperlipidemia, unspecified, I10 - Essential (primary) hypertension, Z78.0 - Asymptomatic menopausal state Medications: Refilled semaglutide (Ozempic) for 4 weeks 0.25 mg (0.368 mL) subcut QWEEK 30 days 3 mL 2RF E11.65 - Type 2 diabetes mellitus with hyperglycemia, E66.01 - Morbid (severe) obesity due to excess calories
[2024-03-08 13:42] VITALS: BP 130/76; PULSE 64; O2SAT 99; BMI 40.9
== END 2024-03-08 14:13 | disposition home or self-care (01) ==
PROVIDERS: PCP Internal Medicine; Visit Provider Internal Medicine
DX: E11.9 Type 2 diabetes mellitus without complications (principal); I10 Essential (primary) hypertension; E78.5 Hyperlipidemia, unspecified

== ENCOUNTER → 2024-03-08 13:30 | Outpatient (BNVA) | payer MEDICARE, SELFPAY | PROVIDERS: PCP Internal Medicine; Visit Provider Internal Medicine | DX: E11.9 Type 2 diabetes mellitus without complications (principal); E78.5 Hyperlipidemia, unspecified; I10 Essential (primary) hypertension | CPT/HCPCS: 96127; 99212 ==

== ENCOUNTER 2024-06-23 09:10 | Outpatient (REF) | payer MEDICARE, SELFPAY ==
[2024-06-23 15:53] LABS: Influenza A PCR POSITIVE (Negative); Influenza B PCR NEGATIVE (Negative); Resp Syncy Virus RNA Qual PCR NEGATIVE (Negative); SARS COV2 PCR INHOUSE NEGATIVE (Negative)
== END 2024-06-23 09:11 | disposition home or self-care (01) ==
LOC: HO.LNP 09:10
PROVIDERS: PCP Internal Medicine; Visit Provider Physician Assistant Medical
DX: J06.9 Acute upper respiratory infection, unspecified (principal)
CPT/HCPCS: 0241U; 87880

== ENCOUNTER 2024-06-23 09:10 | Outpatient (AMB) | payer MEDICARE, SELFPAY ==
--- OUTSIDE RECORDS SUMMARY | 2024-06-23 09:13 | XMS_ITS | Patient Health Record ---
Author Organization [facility] Address [address] [place] [address] Care Team Providers Care Die Tester Name Role Phone Stan SKAGGS, Pam Primary Care Provider Nick Corado Unavailable [phone] Allergies No Known Allergies Results Component Value Reference Range Notes Glucose, Whole Blood Reviewed date:08/08/2023 11:45:49 PM Interpretation: Performing Lab:[facility], [address] [place] [id number] Notes/Report: Glucose, Whole Blood 150 60-115 mg/dL METER # : [id number] Reason For Referral No Information Medications Medication SIG (Take, Route, Fr equency, Duration) Notes Start Date End Date Status metFORMIN HCl 500 MG 1 tablet with a peter l Orally Once a day for 30 day(s) Active Simvastatin 20mg Act berna Lisinopril 5mg Activ e Immunizations Vaccine Route Administration Date Status Comme nts Influenza Unknown 12/14/2022 Administered Social History Alcohol Screen Question Answer Notes Did you have a drink contain ing alcohol in the past year? Yes How often did you have a dri nk containing alcohol in the past year? Never (0 point) How many drinks did you have on a typical day when you were drinking in the past year? 1 or 2 drinks (0 point) How often did you have 6 or more drinks on one occasion in the past year? Never (0 point) Points 0 Interpretation Negative Section Notes: Nonsmoker; no sig. alcohol Nonsmoker; no sig. alcohol Nonsmoker; no sig. alcohol Problems Problem Type SNOMED Code ICD Code Onset Dates Problem Status W/U Status Risk Notes Problem [id number] Encounter for screening for malignant neoplasm of colon (Z12.11) Active confirmed Problem Diverticular disease of colon (637276047) Diverticulosis of large intestine without perforation or abscess without bleeding (K57.30) Active confirmed Problem [id number] Preprocedural examination (Z01.818) Active confirmed Problem [id number] Hx of adenomatou s colonic polyps (Z86.010) Active confirmed Encounters Encounter Location Date Provider Diagnosis [facility] Outpatient [address] [place] [address] [phone] 08/08/2023 Nick Bennett Encounter for scre ening [...] hemorrhoids (ICD-10 - K64.8) Plan Of Treatment Future Test Test Name Order Date COLONOSCOPY 01/25/2012 COLONOSCOPY 11/04/2017 COLONOSCOPY 05/04/2023 Insurance Providers Payer Name Payer Address Payer Phone Subscriber Number Group Number Insured Name Patient Relationship to Insured Coverage Start Date Coverage End Date [facility] [address] [address] [place] [phone] [id number] LISANDRO SUMMERS Self - patient is the insured MEDICARE OF [place] [address] [facility] [place] [address] [id number] LISANDRO SUMMERS Self - patient is the insured Medical (General) History Medical History History ICD Code Tubular adenoma-removed in -approx. 1.5 cm flat polyp in the ascending colon; small tubular adenoma removed in 2012 HTN Hyperlipidemia Denies MD,CVA,Lung disease,renal disease Negative screening colonoscopy in [facility] of 2017 Surgical History Surgery Date(Month/Year) Owen bustos
--- OUTSIDE RECORDS SUMMARY | 2024-06-23 09:13 | XMS_ITS ---
Author Organization [facility] Address [address] [place] [address] Care Team Providers Care Goat Herder Name Role Phone Stan SKAGGS, Pam Primary Care Provider Nick Corado Unavailable [phone] Allergies No Known Allergies REASON FOR VISIT Patient presents today for a screening colon Medications Medication SIG (Take, Route, Fr equency, Duration) Notes Start Date End Date Status metFORMIN HCl 500 MG 1 tablet with a peter l Orally Once a day for 30 day(s) Active Simvastatin 20mg Act berna Lisinopril 5mg Activ e Social History Alcohol Screen Question Answer Notes [...] Negative Section Notes: Nonsmoker; no sig. alcohol Vital Signs Temperature 97.1 degrees Fahrenheit 05/04/19 24 Blood pressure systolic 000 mm Hg 05/04/19 24 Blood pressure diastolic 00 mm Hg 024 Height 62.50 in 05/04/2023 Weight 245 lb 2 oz lbs 05/04/2023 BMI 44.11 kg/m2 05/04/2023 Encounters Encounter Location Date Provider Diagnosis [facility] [address] [place] [address] 05/04/2023 Nick Bennett Hx of adenomatous colonic polyps Z86.010 ; Preprocedural examination Z01.818 and Encounter for screening for malignant neoplasm of colon Z12.11 Assessments Encounter Date Diagnosis (ICD Code) Assessment Notes Treatment Notes Treatment Clinical Notes Section Notes 05/04/2023 Hx of adenomatous colonic polyps (ICD-10 - Z86.010) Overall, Teresa appears quite well. Given her age, good clinical appearance, her personal and family history of tubular adenomas, and her last colonoscopy being over 5 years ago, I did recommend a followup colonoscopy for further screening purposes. We did review the rationale for that regard to colon cancer prevention. Full consent is obtained for this, including risks of bleeding and perforation. The procedure will be done with monitored anesthesia care. Teresa was comfortable with this plan. Thank you again for allowing me to participate in Teresa's care. I shall continue to keep you advised of her progress. 05/04/2023 Preprocedural examination (ICD-10 - Z01.818) Overall, Teresa appears quite well. Given her age, good clinical appearance, her personal and family history of tubular adenomas, and her last colonoscopy being over 5 years ago, I did recommend a followup colonoscopy for further screening purposes. We did review the rationale for that regard to colon cancer prevention. Full consent is obtained for this, including risks of bleeding and perforation. The procedure will be done with monitored anesthesia care. Teresa was comfortable with this plan. Thank you again for allowing me to participate in Teresa's care. I shall continue to keep you advised of her progress. 05/04/2023 Encounter for screening for malignant neoplasm of colon (ICD-10 - Z12.11) Do not use the Metformin the night before nor on the morning of the colonoscopy Overall, Teresa appears quite well. Given her age, good clinical appearance, her personal and family history of tubular adenomas, and her last colonoscopy being over 5 years ago, I did recommend a followup colonoscopy for further screening purposes. We did review the rationale for that regard to colon cancer prevention. Full consent is obtained for this, including risks of bleeding and perforation. The procedure will be done with monitored anesthesia care. Teresa was comfortable with this plan. Thank you again for allowing me to participate in Teresa's care. I shall continue to keep you advised of her progress. Plan Of Treatment Treatment Notes Assessment Notes Encounter for screening for malignant neoplasm of colon Do not use the Metformin the night befor e nor on the morning of the colonoscopy Future Test Test Name Order Date COLONOSCOPY 05/04/2023 Next Appt Details Follow Up: prn, Reason: Progress Notes * TERESA SUMMERS LDOB:[birth year] (68 yo F)Acc No.[id number]:05/04/2023 Progress Notes Patient:?TERESA SUMMERS Provider:?Nick Bennett MD :1955???Age:68 Y???Sex:Female D ate:05/04/2023 Address:[address] [place], [place] [id number] Pcp:Pam Pierce MD Subjective: * Chief Complaints: * ???Patient presents today fo r a screening colon * HPI: ???incontinence:? I saw Teresa in the office today for evaluation of her personal history of tubular adenomas of the colon and need for colorectal cancer screening. ?I last saw Teresa in January of 2018, at which time she underwent a negative followup screening colonoscopy. She presently feels very well. She enjoys a good appetite, without any significant heartburn or dysphagia. Her bowel movements have been regular and without any signs of bleeding. She denies abdominal pain, jaundice, nor weight loss. She denies any known family history of colon cancer, although her father did have a large colon polyp removed endoscopically. * ROS:?General/Constitutional:?Change in appetite?denies.?Chills?denies.?Fatigue?denies.?Ophthalmologic:?Patient denies? Negative..?ENT:?Patient denies?Negative..?Respiratory:?Patient denies?No coughing/hemoptysis..?Cardiovascular:?Patient denies? No chest pain/orthopnea..?Gastrointestinal:?Comments?See HPI for details.?Genitourinary:?Patient denies? No dysuria/hematuria..?Musculoskeletal:?Patient denies? No specific arthralgias/myalgias..?Skin:?Patient denies?No rash/pruritus..?Neurologic:?Patient denies? No headaches/seizures..?Psychiatric:?Patient denies?Negative..? * Medical History:? * Surgical History:?Heel spurs * Hospitalization/Major Diagno stic Procedure:?No Hospitalization History. * Family History:?Father: dece ased, diagnosed with Colon polyps.?Mother: .? Dad had a large colon polyp removed in his late 50's. No family history of colon cancer or liver cancer. * Social History:?Tobacco Use:?Tobacco Use/Smoking?Are you a: nonsmoker.?Drugs/Alcohol:?Alcohol Screen?Did you have a drink containing alcohol in the past year??Yes,?How often did you have a drink containing alcohol in the past year??Never (0 point),?How many drinks did you have on a typical day when you were drinking in the past year??1 or 2 drinks (0 point),?How often did you have 6 or more drinks on one occasion in the past year??Never (0 point),?Points?0,?Interpretation?Negative.?Miscellaneous:?Marital status: Single. 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 ???Nonsmoker; no sig. alcohol. * Medications:?TakingmetFORMIN HCl 500 MG Tablet 1 tablet with a meal Orally Once a dayLisinopril 5mg Simvastatin 20mg Taking metFORMIN HCl 500 MG Tablet 1 tablet with a meal Orally Once a dayTaking Lisinopril 5mg Taking Simvastatin 20mg DiscontinuedAspir-Low 81mg MoviPrep 100 GM Solution Reconstituted as directed Orally onceMedication List reviewed and reconciled with the patientDiscontinued Aspir- Low 81mg Discontinued MoviPrep 100 GM Solution Reconstituted as directed Orally onceMedication List reviewed and reconciled with the patient * Allergies:?N.K.D.A.yes[Aller gies Verified] Objective: * Vitals:?Wt: 245 lb 2 oz, Ht: 62.50 in, BMI:44.11 Index, BP: 000/00 mm Hg, Temp: 97.1. * Examination: ???General Examination: ?GENERAL APPEARANCE:?pleasant, well nourished, well developed, in no acute distress.?EYES:?sclera non-icteric.?ORAL CAVITY:?mucosa moist.?NECK/THYROID:?no cervical lymphadenopathy, neck supple.?SKIN:?nonjaundiced, no spider angiomata..?HEART:?S1, S2 normal.?LUNGS:?clear to auscultation bilaterally.?ABDOMEN:?normal bowel sounds, no guarding or rigidity, no hepatosplenomegaly, no masses palpable, soft, nontender, nondistended..?EXTREMITIES:?no edema.?NEUROLOGIC:?alert and oriented.? Assessment: * Assessment: 1.?Preprocedural examination - Z01.818 (Primary)?2.?Hx of adenomatous colonic polyps - Z86.010?3.?Encounter for screening for malignant neoplasm of colon - Z12.11? Overall, Teresa appears quite well. Given her age, good clinical appearance, her personal and family history of tubular adenomas, and her last colonoscopy being over 5 years ago, I did recommend a followup colonoscopy for further screening purposes. We did review the rationale for that regard to colon cancer prevention. Full consent is obtained for this, including risks of bleeding and perforation. The procedure will be done with monitored anesthesia care. Teresa was comfortable with this plan. Thank you again for allowing me to participate in Teresa's care. I shall continue to keep you advised of her progress. Plan: * Treatment: 2.?Encounter for screening for malignant neoplasm of colon?Procedure: COLONOSCOPY (Ordered for 05/04/2023)* with MACsched for 08/08/23 at 9:50 ammiralax Notes: Do not use the Metformin the night before nor on the morning of the colonoscopy?? * Procedure Codes:?3017F COLOR ECTAL CA SCREEN DOC [id number] TOBACCO NON-ZRCVH4841 BP SCR NOT PRFRM REC REASON NOS * Preventive Medicine:? ??Counseling:?Care goal follow-up plan:?Above Normal BMI Follow-up?Giving encouragement to exercise,?BMI management provided?Yes.? ??Urinary Incontinence:?Urinary Incontinence?Assessment:?Absent,?Plan of care documented:?No, reason not specified.? * Follow Up:?prn * * Sign off status: Completed true * Provider:?Nick Bennett MD Date:? 024 Generated for Yosi moura/Cristian/eTransmitting on:?06/23/2024 09:13 AM EDT History and Physical Notes * HPI (History of Present Illness) Category Sub-Category Detail Notes Category Not es incontinence I saw Teresa in the office today for evaluation of her personal history of tubular adenomas of the colon and need for colorectal cancer screening. I last saw Teresa in January of 2018, at which time she underwent a negative followup screening colonoscopy. She presently feels very well. She enjoys a good appetite, without any significant heartburn or dysphagia. Her bowel movements have been regular and without any signs of bleeding. She denies abdominal pain, jaundice, nor weight loss. She denies any known family history of colon cancer, although her father did have a large colon polyp removed endoscopically. Examination Category Sub-Category Detail Notes Category Not es General Examination GENERAL APPEARANCE: pleasant , well nourished, well developed, in no acute distress EYES: sclera non-icteric NECK/THYROID: no cervical lymphade nopathy, neck supple HEART: S1, S2 normal LUNGS: clear to auscultatio n bilaterally ABDOMEN: normal bowel sounds, no guarding or rigidity, no hepatosplenomegaly, no masses palpable, soft, nontender, nondistended. NEUROLOGIC: alert and oriented SKIN: nonjaundiced, no spi carlos angiomata. EXTREMITIES: no edema ORAL CAVITY: mucosa moist
--- OUTSIDE RECORDS SUMMARY | 2024-06-23 09:13 | XMS_ITS ---
Author Organization [facility] Address [address] [place] [address] Care Team Providers Care Process Worker Name Role Phone Stan SKAGGS, Pam Primary Care Provider Nick Corado Unavailable [phone] REASON FOR VISIT screening,hx polyps Problems Problem Type SNOMED Code ICD Code Onset Dates Problem Status W/U Status Risk Notes Problem Diverticulosis o f large intestine without perforation or abscess without bleeding (K57.30) Active confirmed Encounters Encounter Location Date Provider Diagnosis [facility] Outpatient [address] [place] [id number] 08/08/2023 Nick Bennett Encounter for scre ening [...] LISANDRO SUMMERS LDOB:[birth year] (69 yo F)Acc No.[id number]:08/08/2023 COLON WITH MAC Patient:?LISANDRO SUMMERS Provider:?Nick Bennett MD :1955???Age:68 Y???Sex:Female D ate:08/08/2023 Address:[address], [place] [facility] Pcp:Pma Pierce MD Subjective: * Chief Complaints: * ???1. Screening,hx polyps. * Medical History:? Objective: * Vitals:? Assessment: * Assessment: 1.?Encounter for screening c olonoscopy - Z12.11 (Primary)???2.?Diverticulosis of large intestine without perforation or abscess without bleeding - K57.30???3.?Other hemorrhoids - K64.8??? Plan: * Treatment: * Procedure Codes:?89397 DIAGN OSTIC COLONOSCOPY * * The named appointment provid er may or may not be the originator of this progress note, and it is not deemed complete until electronically signed by the appointment provider. Sign off status: Pending * Provider:?Nick Bennett MD Date:? 024 Generated for Yosi moura/Cristian/Desireesmitting on:?06/23/2024 09:13 AM EDT
--- NOTE | 2024-06-23 11:06 | AM.OFFWIN_ITS ---
Intake Vital Signs 06/23/24 11:08 Height 5 ft 2.5 in Weight 227 lb BMI 40.9 BP 122/78 Blood Pressure Location Lt brachial Position Sitting Pulse 76 Pulse Source Pulse Oximeter Temp 101.2 F H Temp Source Oral Pulse Oximetry (%) 97 Intake Visit Reasons: EP Cough, sore throat Patient Tobacco Use Status: Never used Tobacco Allergies No Known Allergies Allergy (Verified 06/23/24 11:08) Do you need a note to return to daycare/school/sports/work: No HPI EP Cough, sore throat HPI Details Patient is a 69-year-old female with underlying diabetes, hypertension, and dyslipidemia, who comes to the walk-in complaining of a sore throat, headache and cough for few days. Her sister was diagnosed with influenza type A. She she feels some pressure to the right ear also, and she does have the chills, and felt really cold last night, but did not check her temperature. She denies chest pain, shortness of breath, and no report of nausea vomiting or di arrhea, weakness or dizziness, fast heart rate, palpitations, or other significant associated symptoms. [facility] Medical History Type 2 diabetes mellitus without complication, without long-term current use of insulin Diabetes mellitus with hyperglycemia Bilateral carpal tunnel syndrome Tubular adenoma of colon Morbid obesity Essential hypertension Dyslipidemia (high LDL; low HDL) Surgical History Hx of foot surgery H/O colonoscopy Family History Father No problems noted. Mother No problems noted. Brother No problems noted. Sister No problems noted. Sister No problems noted. Social History Housing: House Alcohol intake: current Alcohol intake frequency: does not drink Patient Tobacco Use Status: Never used Tobacco e-Cigarette/Vaping Use: Never Used service: No Current occupational status: employed Cognitive needs: No Hearing needs: No Vision needs: Yes Review of Systems Const All systems reviewed & are unremarkable except as noted in HPI and below Physical Exam Vital Signs: Last Vital Signs Temp 101.2 F H 06/23/24 11:08 Pulse 76 06/23/24 11:08 BP 122/78 06/23/24 11:08 Pulse Ox 97 06/23/24 11:08 BMI result Body Mass Index 40.9 Const General: cooperative, comfortable, no acute distress, alert, awake, Physically active and well groomed; No anxious, diaphoretic, intoxicated appearing, poor hygiene or tired appearing Nutritional Appearance: overweight Orientation/consciousness: oriented to person Limitations: ambulation with cane HEENT Head: Yes normal to inspection, Yes normocephalic and Yes atraumatic Ears: hearing grossly normal bilaterally, external ears normal and EAC's normal General nose exam: Normal external nose present, Normal nares present, No nasal polyps present, Normal septum present, No nasal discharge present and Abnormal mucous membranes and turbinates present Face and sinus: Yes normal facial exam, Yes sinuses nontender and Yes face symmetric Mouth: Normal oral and palatal mucosa present, lip normal and tongue normal Throat: Yes abnormal tonsil (mildly erythematous bilaterally), No peritonsillar mass, No postnasal drainage, No uvular edema and No cobblestoning Eyes General: appearance normal, both eyes and all related structures Neck Neck: Yes normal visual inspection, Yes full ROM, Yes no lymphadenopathy, Yes trachea midline, Yes supple and No anterior neck swelling Chest Chest palpation & inspection: normal palpation of entire chest wall Resp Effort & Inspection: normal respiratory effort, able to speak in complete sentences, no audible wheezes, Actively coughing, no grunting, not labored, no nasal flaring, no retractions and symmetric chest movement Auscultation: clear to auscultation bilaterally, no crackles, no rales, no rhonchi, no wheezes, lung sounds not diminished and No rub present Cardio Palpation: normal PMI Rate: regular rate Rhythm: regular rhythm Heart sounds: S1 normal heart sound present and S2 normal heart sound present Skin Other: Good color, warm and dry Neuro General: oriented to person Psych Appearance: grossly normal Mental Status: mental status grossly normal Speech and movement: Normal speech and movement present Affect: normal affect Attitude: cooperative Thought process: Normal thought process present Insight: Good insight present (Psych) Judgement: Good judgement present (Psych) Results AMB Rapid Strep AMB Rapid Strep Negative Last Edit by Xavier Sanchez CMA on 06/23/24 11 :20 Results Reviewed Results Reviewed: Laboratory Last Values Strep Scn Rapid Clinic Negative 06/23/24 11:16 Assessment & Plan Assessment & Plan (1) Upper respiratory infection: Code(s): J06.9 - Acute upper respiratory infection, unspecified Qualifiers: URI type: unspecified viral URI Qualified Code(s): J06.9 - Acute upper respiratory infection, unspecified Plan: Patient with upper respiratory infection, likely due to influenza A. She is not vaccinated, and had contact with sister who had similar symptoms and was diagnosed with influenza A. We swabbed her today, and results are pending for flu COVID and RSV. She was amenable to that. Overall, despite her fever, she has stable presentation and is safe for outpatient discharge. We discussed that due to her diabetes, and other comorbidities, that she should take Tamiflu if she comes back positive. We discussed supportive care for upper respiratory infections, including but not limited to adequate hydration and rest. She knows to monitor symptoms and follow up if they worsen, especially if she develops shortness of breath, chest pain, weakness or dizziness, worsening fever, or other worrisome symptoms. She would likely need a chest x-ray at that point. We discussed that she should go to the emergency department with worrisome symptoms. Orders: Orders AMB Rapid Strep Screen Today Z13.9 - Encounter for screening, unspecified SARS-CoV2/FLU/RSV Today J06.9 - Acute upper respiratory infection, unspecified Medications: New oseltamivir (Tamiflu) 75 mg PO BID 5 days 10 caps 0RF benzonatate 200 mg PO BID-TID PRN 30 caps 0RF cough Coding Level of Care Code Est Pt Level 4 (87685) Diagnoses Viral upper respiratory tract infection J06.9 URI type: unspecified viral URI
[2024-06-23 11:08] VITALS: BP 122/78; PULSE 76; TEMP 38.4; O2SAT 97; BMI 40.9
== END 2024-06-23 12:01 | disposition home or self-care (01) ==
PROVIDERS: PCP Internal Medicine; Visit Provider Physician Assistant Medical
DX: Z13.9 Encounter for screening, unspecified (principal)

== ENCOUNTER 2024-07-02 07:57 | Outpatient (REF) | payer MEDICARE, SELFPAY ==
--- OUTSIDE RECORDS SUMMARY | 2024-07-02 07:59 | XMS_ITS ---
Author Organization [facility] Address [address] [place] [address] Care Team Providers Care Rough Carpenter Name Role Phone Stan SKAGGS, Pam Primary Care Provider Nick Corado Unavailable [phone] Allergies No Known Allergies REASON FOR VISIT [...] 05/04/2023 Encounters Encounter Location Date Provider Diagnosis [facility] [address] [place] [address] 05/04/2023 Nick Bennett Hx of adenomatous colonic [...] TERESA SUMMERS LDOB:[birth year] (68 yo F)Acc No.[id number]:05/04/2023 Progress Notes Patient:?TERESA SUMMERS Provider:?Nick Bennett MD :1955???Age:68 Y???Sex:Female D ate:05/04/2023 Address:[address] [place], [place] [id number] Pcp:Pam Pierce MD Subjective: * Chief Complaints: [...] past year??Never (0 point),?Points?0,?Interpretation?Negative.?Miscellaneous:?Marital status: Single. 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 ???Nonsmoker; no sig. alcohol. * Medications:?TakingmetFORMIN HCl [...] Procedure Codes:?3017F COLOR ECTAL CA SCREEN DOC [id number] TOBACCO NON-GCRPT7805 BP SCR NOT PRFRM REC REASON NOS * Preventive Medicine:? ??Counseling:?Care goal follow-up plan:?Above Normal BMI Follow-up?Giving encouragement to exercise,?BMI management provided?Yes.? ??Urinary Incontinence:?Urinary Incontinence?Assessment:?Absent,?Plan of care documented:?No, reason not specified.? * Follow Up:?prn * * Sign off status: Completed true * Provider:?Nick Bennett MD Date:? 024 Generated for Yosi moura/Cristian/eTransmitting on:?07/02/2024 07:59 AM EDT History and Physical Notes * [...]
--- OUTSIDE RECORDS SUMMARY | 2024-07-02 07:59 | XMS_ITS ---
Author Organization [facility] Address [address] [place] [address] Care Team Providers Care Cement Finisher Helper Name Role Phone Stan SKAGGS, Pam Primary Care Provider Nick Corado Unavailable [phone] REASON FOR VISIT screening,hx polyps Problems Problem Type SNOMED Code ICD Code Onset Dates Problem Status W/U Status Risk Notes Problem Diverticular disease of colon (155962979) Diverticulosis of large intestine without perforation or abscess without bleeding (K57.30) Active confirmed Encounters Encounter Location Date Provider Diagnosis [facility] Outpatient [address] [place], [place] [id number] 08/08/2023 Nick Bennett Encounter for scre ening [...] LISANDRO SUMMERS LDOB:[birth year] (69 yo F)Acc No.[id number]:08/08/2023 COLON WITH MAC Patient:?LISANDRO SUMMERS Provider:?Nick Bennett MD :1955???Age:68 Y???Sex:Female D ate:08/08/2023 Address:[address], [place] Pcp:Pam Pierce MD Subjective: * Chief Complaints: * ???1. Screening,hx polyps. * Medical History:? Objective: * Vitals:? Assessment: * Assessment: 1.?Encounter for screening c olonoscopy - Z12.11 (Primary)???2.?Diverticulosis of large intestine without perforation or abscess without bleeding - K57.30???3.?Other hemorrhoids - K64.8??? Plan: * Treatment: * Procedure Codes:?52678 DIAGN OSTIC COLONOSCOPY * * The named appointment provid er may or may not be the originator of this progress note, and it is not deemed complete until electronically signed by the appointment provider. Sign off status: Pending * Provider:?Nick Bennett MD Date:? 024 Generated for Yosi moura/Cristian/Desireesmitting on:?07/02/2024 07:59 AM EDT
--- OUTSIDE RECORDS SUMMARY | 2024-07-02 08:00 | XMS_ITS | Patient Health Record ---
Author Organization [facility] Address [address] [place] [address] Care Team Providers Care Recycling Or Rubbish Collector Name Role Phone Stan SKAGGS, Pam Primary Care Provider Nick Corado Unavailable [phone] Allergies No Known Allergies Results Component Value Reference Range Notes Glucose, Whole Blood Reviewed date:08/08/2023 11:45:49 PM Interpretation: Performing Lab:[facility], [address] [place] [id number] Notes/Report: Glucose, Whole Blood 150 60-115 mg/dL METER # : [id number] Reason For Referral No Information Medications Medication [...] Problem Status W/U Status Risk Notes Problem [id number] Encounter for screening for malignant neoplasm of colon (Z12.11) Active confirmed Problem Diverticular disease of colon (156148525) Diverticulosis of large intestine without perforation or abscess without bleeding (K57.30) Active confirmed Problem [id number] Preprocedural examination (Z01.818) Active confirmed Problem 137626504 Hx of adenomatou s colonic polyps (Z86.010) Active confirmed Encounters Encounter Location Date Provider Diagnosis [facility] Outpatient [address] [place] [phone] 08/08/2023 Nick Bennett Encounter for scre ening [...] Insured Coverage Start Date Coverage End Date [facility] [address] [address] [place] [phone] [id number] LISANDRO SUMMERS Self - patient is the insured MEDICARE OF [place] [address] [place] [address] [id number] LISANDRO SUMMERS Self - patient is the insured Medical (General) History Medical History History ICD Code Tubular adenoma-removed in -approx. 1.5 cm flat polyp in the ascending colon; small tubular adenoma removed in 2012 HTN Hyperlipidemia Denies MS,CVA,Lung disease,renal disease Negative screening colonoscopy in [facility] of 2017 Surgical History Surgery Date(Month/Year) Owen bustos
[2024-07-02 10:36] LABS: Alanine Aminotransferase 23 U/L (0-31); Anion Gap 15 (12-20); Aspartate Amino Transferase 24 U/L (5-31); Blood Urea Nitrogen 10 mg/dL (9-16); Calcium 9.4 mg/dL (8.4-10.2); Carbon Dioxide 26 mmol/L (22-29); Chloride 104 mmol/L (96-108); Cholesterol 143 mg/dL (<200); Estimated Glomerular Filt Rate > 60; Glucose Fasting 133 mg/dL (60-99); HDL Cholesterol 53 mg/dL (>40); LDL Cholesterol Calculated 68 mg/dL (<100); Potassium 3.9 mmol/L (3.3-5.1); Sodium 141 mmol/L (135-145); Triglycerides 114 mg/dL (<150)
[2024-07-02 11:00] LABS: Vitamin D 25-OH Total 30.3 ng/mL (>30)
[2024-07-02 11:23] LABS: Estimated Average Glucose 131 mg/dL; Hemoglobin A1C 155.1134 umol/L; Hemoglobin A1c % 6.2 % (<6.0)
[2024-07-02 14:07] LABS: Microalbum/Creatinine Ratio Ur 12.6 ug/mg cr (<30)
== END 2024-07-02 07:58 | disposition home or self-care (01) ==
LOC: HO.HMGCLDS 07:57
PROVIDERS: PCP Internal Medicine; Visit Provider Internal Medicine
DX: E11.9 Type 2 diabetes mellitus without complications (principal); E66.01 Morbid (severe) obesity due to excess calories; I10 Essential (primary) hypertension; E78.5 Hyperlipidemia, unspecified; Z78.0 Asymptomatic menopausal state
CPT/HCPCS: 36415; 80048; 80061; 82043; 82306; 82570; 83036; 84450; 84460

== ENCOUNTER 2024-07-09 08:55 | Outpatient (AMB) | payer MEDICARE, SELFPAY ==
--- OUTSIDE RECORDS SUMMARY | 2024-07-09 09:05 | XMS_ITS | Patient Health Record ---
Author Organization [facility] Address [address] [place] [address] Care Team Providers Care Research Test Engine Evaluator Name Role Phone Stan SKAGGS, Pam Primary Care Provider Nick Corado Unavailable [phone] Allergies No Known Allergies Results Component Value Reference Range Notes Glucose, Whole Blood Reviewed date:08/08/2023 11:45:49 PM Interpretation: Performing Lab:[facility], [address] [place] [id number] Notes/Report: Glucose, Whole Blood 150 60-115 mg/dL METER # : [id number] Reason For Referral No Information Medications Medication [...] Problem Status W/U Status Risk Notes Problem [id number] Encounter for screening for malignant neoplasm of colon (Z12.11) Active confirmed Problem Diverticulosis o f large intestine without perforation or abscess without bleeding (K57.30) Active confirmed Problem [id number] Preprocedural examination (Z01.818) Active confirmed Problem [id number] Hx of adenomatou s colonic polyps (Z86.010) Active confirmed Encounters Encounter Location Date Provider Diagnosis [facility] [place], [place] [id number] 08/08/2023 Nick Bennett Encounter for scre ening [...] Insured Coverage Start Date Coverage End Date [facility] [address] [address] [place] [address] [id number] MELINA LISANDRO Self - patient is the insured MEDICARE OF [place] [address] [facility] [place] [address] [id number] LISANDRO Self - patient is the insured Medical (General) History Medical History History ICD Code Tubular adenoma-removed in -approx. 1.5 cm flat polyp in the ascending colon; small tubular adenoma removed in 2012 HTN Hyperlipidemia Denies DC,CVA,Lung disease,renal disease Negative screening colonoscopy in [facility] of 2017 Surgical History Surgery Date(Month/Year) Owen bustos
--- OUTSIDE RECORDS SUMMARY | 2024-07-09 09:05 | XMS_ITS | Data Portability ---
Author Organization [facility], [facility] Address [address] [place] [address] Care Team Providers Care Photo Print Specialist Name Role Phone LAURA MALAVE Primary Care Provider [phone] Assessment Encounter Date Assessment Date Assessment LastModified by Organization Details LastModified Time 05/15/2024 05/15/2024 SURGICAL HISTORY AND PHYSICAL PRIMARY DIAGNOSIS: Osteoarthritis of the right knee. REASON FOR ADMISSION: The patient is being admitted for a right total knee arthroplasty with Dr. Ivan Roca on 05/24/2024. HISTORY OF PRESENT ILLNESS: The patient is a pleasant 69-year-old female who presents here today with complaints of right knee pain. She reports she has had this pain for several years and it has been getting progressively worse. She states the pain is severe enough it limits her ability to perform activities of daily living as well as social tasks. She has tried and failed nonoperative measures and reports she is now ready to pursue a right total knee arthroplasty with Dr. Ivan Roca on 05/24/2024. PAST MEDICAL HISTORY: 1. Osteoarthritis of the right knee. 2. Obesity, BMI of 43.9. 3. Type 2 diabetes with most recent hemoglobin A1c being 6.3. 4. Hyperlipidemia. PAST SURGICAL HISTORY: 1. Left heel spur surgery in the . 2. Right carpal tunnel release in 2019. MEDICATIONS: Current meds include. 1. Lisinopril 10 mg by mouth once a day. 2. Metformin 1000 mg extended release by mouth once a day in the morning and 500 mg extended release once a day at night. 3. Ozempic subcutaneous injection once a week. She reports her last dose was on 05/14/2024. She will not be taking any more prior to surgery. 4. Simvastatin 20 mg by mouth once a day at bedtime. ALLERGIES: She reports no known allergies to medications or foods. SOCIAL HISTORY: The patient reports that her sister, Henry, will be staying with her postop and helping her with her postoperative care. Denies use of any alcohol, tobacco or recreational drugs. REVIEW OF SYSTEMS: A 12-point review of systems is negative with the exception of the HPI. PHYSICAL EXAMINATION: VITAL SIGNS: Weight 225 pounds. GENERAL: She is alert and oriented. Normal insight, affect, grooming. SKIN: Intact except for some small scabs on her right forearm that are well healing. No rashes or open lesions. HEENT: Normocephalic. Conjunctivae pink. Sclerae are anicteric. NECK: Supple. Trachea midline. CHEST: Lungs are clear to auscultation bilaterally. Able to speak in complete sentences. CARDIAC: Heart has a regular rate and rhythm, normal S1, S2. No murmurs, rubs or gallops appreciated. ABDOMEN: Obese, soft, nontender. LOWER EXTREMITIES: The right lower extremity skin is intact. No erythema, ecchymosis or induration. Range of motion includes 0 to greater than 125 degrees. Bilateral lower extremities with positive motor sensation screening intact. Calves are supple, nontender. Ankle motion satisfactory. Skin about the feet is intact. PREOPERATIVE DIAGNOSTIC DATA: The patient's orthopedic x-ray demonstrated end-stage osteoarthritis of the right knee. Preoperative EKG showed normal sinus rhythm, 67 beats per minute. LABORATORY DATA: CBC from 05/07/2024 showed a hemoglobin 14.9, hematocrit of 44.3, platelet count 175. Coags within normal limits. INR is 1.0. Chemistries show a hemoglobin A1c of 6.3, creatinine 0.63, estimated GFR 97. ASSESSMENT AND PLAN: The patient has advanced osteoarthritis and is now scheduled for a right total knee arthroplasty with Dr. Ivan Roca on 05/24/2024. She was seen by the medical consultative preop clinic. They reported that the patient's risk for any major adverse cardiac or pulmonary events is low, no absolute medical contraindications identified to proceeding with the proposed surgery. The patient will receive intravenous tranexamic acid. She will be on aspirin postop for DVT prophylaxis. Discharge plans will be to home with services. The patient is hoping to go home same day of surgery if possible. She has been counseled regarding the risks and benefits of surgery. Questions have been answered, she acknowledges understanding and wishes to proceed. She will have one week in-home physical therapy prior to going outpatient therapy. Prescriptions sent today include Colace, Celebrex, Tylenol, pantoprazole and ondansetron. She will require script for aspirin and pain medications upon discharge from the hospital. CONTACTS: Her sister, Henry, who can be reached at [phone]. Not available 05/15/2024 14:00:28 05/17/2024 05/17/2024 Imaging: Imaging ordered, independently reviewed and interpreted by Ivan Roca MD reveals the following findings: XR Knee Right Knee: Four views of the knee were obtained including AP, ireland, sunrise, and lateral views. Severe DJD present. Changes consistent with osteoarthritis including joint space narrowing, subchondral sclerosis, and osteophyte formation. Arthrosis primariliy affects the lateral compartment. Alignment: Valgus Impression: Right knee osteoarthritis Plan: I recommend a total knee arthroplasty for relief of their degenerative joint disease of the knee. They have exhausted conservative measures. Their symptoms are significant enough to warrant replacement. I informed the patient that the goal is to offer significant pain relief for about 15 years, and hopefully this also improves their knee function. Activities can be resumed after surgery, however running and jumping are discouraged. They agree to this procedure. Prior to surgery the patient needs to have the following: CBC, CMP, medical clearance, Indications for surgery: Advanced joint disease demonstrated by: Xray Failure of conservative management Unsuccessful history of appropriate conservative therapy (non-surgical medical management). Non surgical medical management was implemented for 3 months or more to assess effectiveness. Conservative treatment as clinically appropriate for the patient? s current episode of care including, but not limited to, one or more of the following: anti-inflammatory medications, analgesics, flexibility and muscle strengthening exercises, supervised physical therapy, activities of daily living (ADLs) diminished despite completing a plan of care, activity restrictions as is reasonable, assistive device use, weight reduction as appropriate, and therapeutic injections into the joint as appropriate. Risks and benefits of surgery were discussed with the patient and the patient understood. We discussed the alternatives and details of surgery and postoperative care with the patient. The patient understands the concepts of surgery and the postoperative conditions required for healing. The patient further understands that surgery can have unfavorable outcomes. In particular, we discussed the possible complications of nonhealing of the tissues and need for reoperation, nerve injury, bleeding or blood loss requiring transfusion, hematoma or complications of anticoagulation used to prevent blood clots, infection requiring further surgery or removal of implants, massive infection requiring amputation, or continued or worse pain. We also discussed worsening of chronic medical conditions and life-threatening complications including stroke, clot, heart attack, pulmonary embolism and related to the surgery or anesthesia, or other factors. The patient understands these risks and benefits of surgery and wishes to proceed, and has signed consent willfully. Due to the condition of the joint, it is my medical opinion that further conservative treatment will not provide relief of their pain, thus we are proceeding with surgery. VTE risk factors: History of VTE: No Active malignancy (excluding skin cancer): No Systolic heart failure (LVEF < 40%): No Bilateral TKA or VERONA being performed: No Current use of hormonal therapy: No (Testosterone use excluded) Oral contraceptive pills Hormone replacement therapy Known thrombophilic disorder: No Antiphospholipid Syndrome Factor V Leiden Prothrombin Gene Mutation Protein C/S Deficiency Anti-Thrombin Deficiency Paroxysmal Nocturnal Hemoglobinuria (PNH) Myeloproliferative Disorder/MINDI-2 Mutation Polycythemia Vera Chronic Myelogenous Leukemia Essential Thrombocytosis Total risk factors: 0 Based on risk stratification above, will plan to use aspirin for DVT prophylaxis. Patients prescribed antithrombotic therapy for an indication other than post-operative VTE prophylaxis should be assessed on an individual basis for continuation of their current therapy. If using a direct oral anticoagulant (DOAC) as home regimen, either resume DOAC post-op, or consider temporary transition to Warfarin therapy in the post-operative period. [email or web address] Not available 05/17/2024 12:21:19 07/06/2024 07/06/2024 Imaging: Imaging ordered, independently reviewed and interpreted by Ivan Roca MD reveals the following findings: XR Knee Right Knee: Three views of the knee were obtained including AP, sunrise, and lateral views. Status post total knee arthroplasty. No evidence of complication, well fixed, well aligned. There is no evidence of loosening or migration. There is no evidence of osteolysis. No fractures are present. Alignment: Neutral Impression: Status post right total knee arthroplasty, 6 weeks out Plan: The patient is doing well, continue activities as tolerated. Follow up with repeat radiographs in one year, or sooner if problems arise. [email or web address] Not available 07/06/2024 15:27:38 Plan of Treatment Reminders Order Date Submit Date Provider Last Modified By Organization Details Last Modified Time Details Appointments None recorded. Lab None recorded. Referral None recorded. Procedures None recorded. Surgeries None recorded. Imaging XR, knee, 3 view - room 208, 1st PO R TKR brothers 2024 025 [email or web address] [address], [address], [place], [address], 5 12:16:31 XR, knee, 3 view - RIGHT KNEE RM 201 2024 025 [email or web address] [facility], [address], [address], [place], [address], 5 14:33:33 Medication Orders Celebrex 200 mg capsule 2024 025 [facility], [address] [facility] [place], [address], 15:06:42 Colace 100 mg capsule 2024 025 [facility], [address] [facility] [place], [address], 5 14:48:00 Celebrex 200 mg capsule 2024 025 [facility], [address] [facility] [place], [address], 14:47:44 Tylenol 8 Hour 650 mg tablet,ex tended release 2024 025 [facility], [address] [facility] [place], [address], 5 13:29:14 pantopraz ole 40 mg tablet,de layed release 2024 025 [facility], [address] [place], [address], 14:48:17 ondansetr on 4 mg disintegr ating tablet 2024 025 [facility], [address] [facility] [place] [address], 14:47:54 Patient TargetsNo targets recorded. Patient InstructionsNo instructions recorded. Reason for Referral None Reported. Results Created Date Observation Date Name Description Value Unit Range Abnormal Flag Note LastModifiedBy Organization Detail LastModifiedTime 05/18/1905/17/2024 XR, knee, 3 view [email or web address] ?Encry pted=s hAaTro YD8dLq bEUv6g %2BXZw aYqtaq 0bqfl% 2Fg9IQ a4ajBk vP9nXo QUaueC m3YtLR FvZl JJ8mAn HZtai3 [id number] AC0KqY nWFVaq nKiQtr MwF INTERFACE [facility] [address] [facility] [address], [place], [address], 05/17/2024 09:28:44 05/18/1905/17/2024 XR, knee, 3 view [email or web address] ?Encry pted=s hAaTro YD8dLq bEUv6g %2BXZw aYqtaq 0bqfl% 2Fg9IQ a4ajBk vP9nXo QUaueC m3YtLR Zl J8Clayhole HZtai3 6w2746 AC0KqY nWFVaq nKiQtr MwF INTERFACE [facility] [address] [facility], [place], [address], 05/17/2024 09:28:46 06/08/19 25 06/07/2024 XR, knee, 3 view [email or web address] ?Encry pted=s hAaTro YD8dLq bEUv6g %2BXZw aYqtaq 0bqfl% 2Fg9IQ a4ajBk vP9nXo QUaueC m3YtLR FvZlgJ JJ8mAn HZtai3 9s9386 AC0KqY 3WDUqW kKiQtr MwF INTERFACE [facility] [address], [place], [address], 06/07/2024 16:06:51 06/08/1906/07/2024 XR, knee, 3 view [email or web address] ?Encry pted=s hAaTro YD8dLq bEUv6g %2BXZw aYqtaq 0bqfl% 2Fg9IQ a4ajBk vP9nXo QUaueC m3YtLR FvZlgJ JJ8mAn HZtai3 3e6272 AC0KqY 3WDUqW kKiQtr MwF INTERFACE [facility] [address], [place], [address], 06/07/2024 16:06:52 Result Notes None recorded. Problems Name Problem SNOMED Code Status Onset Date Resolution Date Notes Provider Name and Address Organization Details Recorded Time Osteoarthr itis of right knee joint 9096501465885 00 Active 2023 Yolanda Garcia PA-C [address], [place], [address] , [facility] 4 14:15:02 Osteoarthr itis of left knee joint 7072170396524 09 Active 2023 Yolanda Garcia PA-C [address], [place], [address] , [place] - [facility] 4 14:15:03 Bilateral osteoarthr itis of knees 4881590598518 07 Active 2024 Yolanda Garcia PA-C [address], [place], [address] , [facility] 5 12:48:36 History of total knee arthroplas ty 1204025230685 Active 2024 Ivan Roca MD [address], [place], [address] , [facility] 15:27:36 Problem Notes None recorded. Procedures Surgical History Date Name Laterality Status Provider Name and Address Organization Details Recorded Time Knee Kenalog 40 1cc Injection, Bilateral completed Yolanda Garcia PA-C [address], [place], [address], [facility] 12/16/2023 14:14:38 Imaging Results Imaging Date Name Status LastModified by Organiz ation Details LastModified Time 05/17/2024 XR, knee, 3 view completed [facility] [address], [place], [address], 05/17/2024 09:28:44 05/17/2024 XR, knee, 3 view completed [facility] [address], [place], [address], 05/17/2024 09:28:46 06/07/2024 XR, knee, 3 view completed INTER[facility] [address], [place], [address], 06/07/2024 16:06:51 06/07/2024 XR, knee, 3 view completed [facility] [address], [place], [address], 06/07/2024 16:06:52 Procedure Notes None recorded. Medical Equipment None Reported. Allergies No known drug allergies Medications Name Sig Start Date Stop Date Status Note LastModified by Organization Details LastModified Time Colace 100 mg capsule Take 1 capsule twice a day by oral route for 30 days. 07/06 completed Not Available Not Available Not Available tramadol 50 mg tablet TAKE 1 TO 2 TABLETS BY MOUTH EVERY 6 HOURS NEEDED FOR MILD PAIN 07/06 completed Not Available Not Available Not Available Celebrex 200 mg capsule Take 1 capsule every day by oral route for 30 days. 2024 active Not Available Not Available Not Avai lable pantoprazol e 40 mg tablet,eldon yed release Take 1 tablet every day by oral route for 30 days. 07/06 completed Not Available Not Available Not Available simvastatin 20 mg tablet active Not Available Not Available Not Available lisinopril 10 mg tablet active Not Available Not Available Not Available ondansetron 4 mg disintegrat ing tablet Place 1 tablet every 8 hours by transling ual route for 7 days. 07/06 completed Not Available Not Available Not Available metformin ER 500 mg tablet,exte nded release 24 hr active Not Available Not Available Not Available oxycodone 5 mg tablet TAKE 1 TO 2 TABLETS BY MOUTH EVERY 4 HOURS NEEDED FOR SEVERE PAIN 07/06 completed Not Available Not Available Not Available Tylenol 8 Hour 650 mg tablet,exte nded release Take 1 tablet 3 times a day by oral route for 33 days. 2024 active Not Available Not Available Not Avai lable Ozempic 0.25 mg or 0.5 mg (2 mg/3 mL) subcutaneou s pen injector active Not Available Not Available Not Available Vitals Date Recorded Body height Body mass index (BMI) Body weight Provider Name and Address Organization Details Last Updated DateTime 03/23/2024 157.48 cm 43.9 kg/m2 829567.17 g Diane malik [facility] 03/23/2024 10:34:22 Date Recorded Body height Body mass index (BMI) Body weight Provider Name and Address Organization Details Last Updated DateTime 05/15/2024 157.48 cm 41.2 kg/m2 325585.28 g SHAHRZAD BARAHONA [facility] 05/15/2024 13:00:14 Date Recorded Body height Body mass index (BMI) Body weight Provider Name and Address Organization Details Last Updated DateTime 05/17/2024 157.48 cm 41.2 kg/m2 383318.28 g Gloria Tello [facility] 05/17/2024 09:18:03 Date Recorded Body height Body mass index (BMI) Body weight Provider Name and Address Organization Details Last Updated DateTime 06/07/2024 157.48 cm 41.2 kg/m2 052298.28 g Jessica Lozada [facility] 06/07/2024 15:55:51 Date Recorded Body height Provider Name an d Address Organization Details Last Updated DateTime 07/06/2024 157.48 cm Alicia Snow [facility] 07/06/2024 14:47:30 Social History None recorded. Functional Status None recorded. Mental Status None recorded. Family History Nothing Reported. Medical History No medical history recorded. Gynecological HistoryNo gynecological history recorded. Obstetrics History GPAL:G 0 P 0 0 0 0 Past Encounters Encounter ID Performer Location Encounter Start Date Encounter Closed Date Diagnosis/Indication Diagnosis SNOMED-CT Code Diagnosis ICD10 Code Diagnosis Note [id number] [facility] [address] [place] [address] 12/16/2023 13:07:36 01/11/2024 09:02:42 Pain of right knee joint 9411453441 96868 M25.561 Osteoarthr itis of right knee joint 7618969051 22446 M17.11 Reviewed patient's imaging and exam findings in detail with her. She has advanced right greater than left bilateral knee osteoarthr itis for which the only curative treatment would be total joint replacemen t. She had excellent improvemen t in her pain and symptoms after previous cortisone injections which lasted perhaps years. Therefore would not recommend repeat injection today to allow for continued home exercise program and strength building over the next several months. She will return in 3 months for clinical reevaluati on. If injections worked well she may cancel this appointmen t or we can repeat them. Versus can discuss operative referral if symptoms remain. All questions and concerns were addressed and answered. Encouraged low-impact exercise program such as stationary biking, swimming or rowing. Osteoarthr itis of left knee joint 5163549521 48002 M17.12 [id number] [facility] [address] [place] [address] 03/23/2024 10:12:57 04/06/2024 09:39:34 Bilateral osteoarthritis of knees 1367593738 32758 M17.0 Discussed continued conservati ve care vs. referral to {{Dr. Roca* Dr. Nicky Lucero}} for considerat ion of total joint replacemen t. Patient is ready to move forward with more definitive care and elects for operative referral. Recommende d and provided physical therapy prescripti on for preoperati ve strength and conditioni ng program. This will help to maximize strength, function and range of motion in preparatio n for total knee arthroplas ty. Discussed the risks and benefits associated with operative vs. non-operat berna treatment. Reviewed in detail the operative, postoperat berna, recovery course, and postop expectatio ns involved in total joint replacemen t surgery. Patient expresses understand ing. Agrees to move forward. All questions and concerns were addressed and answered. She is attempted multiple conservati ve treatment options including activity modificati on, anti-infla mmatories and cortisone injection with no sustained relief. She has quite advanced osteoarthr itis therefore feel that the next best step would be referral to Dr. Roca for considerat ion of total joint replacemen t. She is in agreement. All questions and concerns were addressed and answered. I recommend a total knee arthroplas ty for relief of their degenerati ve joint disease of the knee. They have exhausted conservati ve measures. Their symptoms are significan t enough to warrant replacemen t. I informed the patient that the goal is to offer significan t pain relief for about 15 years, and hopefully this also improves their knee function. Activities can be resumed after surgery, however running and jumping are discourage d. They agree to this procedure. Prior to surgery the patient needs to have the following: CBC, CMP, medical clearance Indication s for surgery: Advanced joint disease demonstrat ed by: XrayFailur e of conservati ve management Unsuccessf ul history of appropriat e conservati ve therapy (non-surgi ciara medical management ). Non surgical medical management was implemente d for 3 months or more to assess effectiven ess. Conservati ve treatment as clinically appropriat e for the patient? s current episode of care including, but not limited to, one or more of the following: anti-infla mmatory medication s, analgesics , flexibilit y and muscle strengthen ing exercises, supervised physical therapy, activities of daily living (ADLs) diminished despite completing a plan of care, activity restrictio ns as is reasonable , assistive device use, weight reduction as appropriat e, and therapeuti c injections into the joint as appropriat e. Risks and benefits of surgery were discussed with the patient and the patient understood . We discussed the alternativ es and details of surgery and postoperat berna care with the patient. The patient understand s the concepts of surgery and the postoperat berna conditions required for healing. The patient further understand s that surgery can have unfavorabl e outcomes. In particular , we discussed the possible complicati ons of nonhealing of the tissues and need for reoperatio n, nerve injury, bleeding or blood loss requiring transfusio n, hematoma or complicati ons of anticoagul ation used to prevent blood clots, infection requiring further surgery or removal of implants, massive infection requiring amputation , or continued or worse pain. We also discussed worsening of chronic medical conditions and life-threa tening complicati ons including stroke, clot, heart attack, pulmonary embolism and related to the surgery or anesthesia , or other factors. The patient understand s these risks and benefits of surgery and wishes to proceed, and has signed consent willfully. Due to the condition of the joint, it is my medical opinion that further conservati ve treatment will not provide relief of their pain, thus we are proceeding with surgery. [id number] LEXX Osorio [address] [facility] [address] [place] [address] 05/15/2024 12:50:15 05/30/2024 04:06:29 Osteoarthritis of right knee joint 4359067099 M17.11 [id number] MD NATALI Cortez [address] [place] [address] 05/17/2024 09:03:48 05/30/2024 14:33:32 Osteoarthritis of right knee joint 9154635042 M17.11 [id number] RUT Valentin [address] [place] [address] [address] [place] [address] 06/07/2024 15:36:56 06/25/2024 11:25:25 History of right total knee replacement 0424288003 570934 Z96.850 [id number] MD NATALI Cortez [address] [place] [address] 07/06/2024 14:39:55 07/06/2024 15:27:48 History of total knee arthroplasty 4315660786 105 Z96.651 Health Concerns Section Related Observation LastModified by Organization Detai ls LastModified Time None Recorded Concern Status LastModified by Organization Details LastModified Time None Recorded Advance Directives Directive None Recorded Payers Encounter Date Sequence Insurance Name Policy Number Policy Willis Covered Member ID Willis Member ID Guarantor Name 03/23/2024 1 [facility] (PPO) [id number] Teresa L Mugnier [id number] Teresa L Mugnier 05/15/2024 1 [facility] (PP[facility]) [id number] Teresa L Mugnier [id number] Teresa L Mugnier 05/17/2024 1 [facility] (PPO) [id number] Teresa L Mugnier [id number] Teresa L Mugnier 06/07/2024 1 [facility] (PPO) [id number] Teresa L Mugnier [id number] Teresa L Mugnier 07/06/2024 1 [facility] (MEDICARE REPLACEMENT/A DVANTAGE - PPO) [id number] Teresa L Mugnier [id number] Teresa L Mugnier Notes Date Note Type Note Provider Name and Address Organization Details Recorded Time 03/23/2024 text/html I am seeing the patient under the general supervision of {{Dr. Debra Rodriguez*}} who was available but who did not see the patient. CC:Acute exacerbation of knee pain HPI:Patient presents today for acute exacerbation of {{Right Left Bilateral *}} knee pain. Is known to have arthritis treated conservatively with intermittent cortisone injections in the past as needed. Reports recent acute exacerbation of symptoms including pain, swelling and difficulty participating in ADL's. No new fall, trauma or injury reported. Last injection(s) were {{ 12/16/23#}}she reports that this did work very well and she was able to wash her dishes and do her house chores with less discomfort however she continues to struggle with going up and down stairs or being able to ambulate any length of time. She reports that her pain is interfering with her quality of life and her right knee in particular is continue to give out. She would like to get back to walking and remaining active. Yolanda Garcia PA-C [address] [facility], [place], [address], [facility] 03/23/2024 10:44:08 05/17/2024 text/html History of prese nt illness:Complaint: Right knee painPain: The pain is severe, it is worsened with activity and has gotten to point where it limits the patient's ability to ambulate moderate distances without needing to rest for pain relief. The patient is limited in their regular daily and social activities as a result of this painNon-operative treatment: Patient has tried and failed anti-inflammatory pain medications, Tylenol, physical therapy, and injections. Her most recent injection was on 12/16/2023 and provided minimal benefitTeresa is an extremely friendly and pleasant 69-year-old female who presents today for evaluation for her right knee. They have a known, longstanding history of right knee osteoarthritis and have undergone a lengthy course of conservative management with generalized failure of nonsurgical options. Their pain is severe and worsened with activity, it has gotten to the point where it is significantly interfering with their ability to perform activities of daily living as well as daily social tasks. They are interested in pursuing total knee arthroplasty for definitive relief of their pain from osteoarthritisPast family, medical, social history and review of systems has been reviewed and updated, and is located in the patient? s chart. Ivan Roca MD [address] [facility], [place], [address], [facility] 05/17/2024 12:21:31 06/07/2024 text/html I am seeing the patient today under the supervision of {{Dr. Jazmine Richardson* Dr. Nicky Partida}} who was available but who did not see the patient. HISTORY OF PRESENT ILLNESSThe patient presents today for a follow-up, now two weeks status post {{Left Right*}} total knee arthroplasty. Happy with the results. No significant complaints of pain. Doing well with P.T. ROM with therapy is {{ 0-85#}} degrees. PAST MEDICAL/SURGICAL HISTORY Reviewed today, otherwise unchanged per intake sheet. REVIEW OF SYSTEMSSystemic: No fever and no chills.Cardiovascular: No chest pain or discomfort.Pulmonary: No dyspnea. PHYSICAL FINDINGSGeneral Appearance:Well developed. ? ? ? In no acute distress.Musculoskelet al System:Lower Leg:General/bilateral: ? ? ? Calves of both lower legs were not tender on palpation.Neurological : Oriented to time, place, and person.Gait And Stance: An operative sided antalgic gait was observed with assistive device.Psychiatric: Mood was appropriate to the affect. ROM is {{ 0-95#}} degrees.Incision is well healing without evidence of drainage or infectionModerate effusion notedStable to varus/valgus stress.Extensor mechanism is intact.Normal sensation bilateral lower extremities Contralateral side shows no warmth, erythema, soft tissue swelling or effusion. TESTSX-rays ordered, obtained and reviewed at [facility] today, three views {{left right*}} knee, reveals maintained alignment of the prosthetic components, no fractures or dislocations, excellent interface, patella tracking centrally. ASSESSMENT Progressing nicely two weeks status post {{Left Right*}} total knee arthroplasty. PLAN The patient is progressing nicely and will continue total knee precautions. Continue to work on range of motion and strengthening exercises.Patient is on {{ASA 325mg BID* Eliquis 5mg BID Eliquis 2.5mg home anticoagulation}} for DVT prophlaxis. Follow-up in {{2 4*}} weeks for re-evaluation, sooner if there is any complications. Charly Castaneda PA-C [address], [place], [address], [facility] 06/07/2024 16:25:29 07/06/2024 text/html History of prese nt illness:This patient follows up today and is now 6 weeks out from right total knee arthroplasty. Their pain is well controlled and they are progressing as expected with physical therapy. Able to do current activities without significant difficulty. They have no major complaints at this time and are satisfied with their current state of recovery.Past family, medical, social history and review of systems has been reviewed and updated, and is located in the patient? s chart. Ivan Roca MD [address] [facility] [address], [place], [address], [facility] 07/06/2024 15:27:46 OBGyn Episode No OBEpisode recorded.
--- OUTSIDE RECORDS SUMMARY | 2024-07-09 09:05 | XMS_ITS ---
Author Organization [facility] Address [address] [place] [address] Care Team Providers Care Leasing Manager Name Role Phone Stan SKAGGS, Pam Primary Care Provider Nick Corado Unavailable [phone] REASON FOR VISIT screening,hx polyps Problems Problem Type SNOMED Code ICD Code Onset Dates Problem Status W/U Status Risk Notes Problem Diverticulosis o f large intestine without perforation or abscess without bleeding (K57.30) Active confirmed Encounters Encounter Location Date Provider Diagnosis [facility] [address] [place] [address] [phone] 08/08/2023 Nick Bennett Encounter for scre ening [...] LISANDRO SUMMERS LDOB:[birth year] (69 yo F)Acc No.[id number]:08/08/2023 COLON WITH MAC Patient:?LISANDRO SUMMERS Provider:?Nick Bennett MD :1955???Age:68 Y???Sex:Female D ate:08/08/2023 Address:[address], [facility] Pcp:Pam Pierce MD Subjective: * Chief Complaints: * ???1. Screening,hx polyps. * Medical History:? Objective: * Vitals:? Assessment: * Assessment: 1.?Encounter for screening c olonoscopy - Z12.11 (Primary)???2.?Diverticulosis of large intestine without perforation or abscess without bleeding - K57.30???3.?Other hemorrhoids - K64.8??? Plan: * Treatment: * Procedure Codes:?68224 DIAGN OSTIC COLONOSCOPY * * The named appointment provid er may or may not be the originator of this progress note, and it is not deemed complete until electronically signed by the appointment provider. Sign off status: Pending * Provider:?Nick Bennett MD Date:? 024 Generated for Yosi moura/Cristian/eTromeliasmitting on:?07/09/2024 09:04 AM EDT
--- OUTSIDE RECORDS SUMMARY | 2024-07-09 09:05 | XMS_ITS ---
Author Organization [facility] Address [address] [place] [address] Care Team Providers Care Medical Office Technician Name Role Phone Stan SKAGGS, Pam Primary Care Provider Nick Corado Unavailable [phone] Allergies No Known Allergies REASON FOR VISIT [...] 05/04/2023 Encounters Encounter Location Date Provider Diagnosis [facility] [address] [place] [address] 05/04/2023 Nick Bennett Hx of adenomatous colonic [...] TERESA SUMMERS LDOB:[birth year] (68 yo F)Acc No.[id number]:05/04/2023 Progress Notes Patient:?TERESA SUMMERS Provider:?Nick Bennett MD :1955???Age:68 Y???Sex:Female D ate:05/04/2023 Address:[address] [place], [place] [id number] Pcp:Pam Pierce MD Subjective: * Chief Complaints: [...] past year??Never (0 point),?Points?0,?Interpretation?Negative.?Miscellaneous:?Marital status: Single. 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 ???Nonsmoker; no sig. alcohol. * Medications:?TakingmetFORMIN HCl [...] Procedure Codes:?3017F COLOR ECTAL CA SCREEN DOC [id number] TOBACCO [id number] BP SCR NOT PRFRM REC REASON NOS * Preventive Medicine:? ??Counseling:?Care goal follow-up plan:?Above Normal BMI Follow-up?Giving encouragement to exercise,?BMI management provided?Yes.? ??Urinary Incontinence:?Urinary Incontinence?Assessment:?Absent,?Plan of care documented:?No, reason not specified.? * Follow Up:?prn * * Sign off status: Completed true * Provider:?Nick Bennett MD Date:? 024 Generated for Yosi moura/Cristian/eTransmitting on:?07/09/2024 09:05 AM EDT History and Physical Notes * [...]
--- NOTE | 2024-07-09 09:09 | A.OFFPC_ITS ---
Vital Signs 07/09/24 09:26 Height 5 ft 2.5 in Weight 217 lb BMI 39.1 BP 122/82 Blood Pressure Location Lt brachial Position Sitting Respiration 16 Pulse 71 Pulse Source Pulse Oximeter Temp 98.2 F Temp Source Oral Pulse Oximetry (%) 97 Oxygen Delivery Method Room Air Intake Visit Reasons: Annual PE - see comments Intake Note: Pt is here today for her PE: Last mammogram 04/19/24, bone densitty scan 07/14/18 and colonoscopy 08/08/23 Allergies No Known Allergies Allergy (Verified 07/09/24 09:36) Medication List - Last Reconciled 07/09/24 by Pam Pierce MD blood sugar diagnostic (FreeStyle Lite Strips) As directed blood-glucose meter (FreeStyle Lite Meter kit) Check blood sugar b.i.d. before meals celecoxib 200 mg PO DAILY Comfort EZ Pen Bryant (pen needle, diabetic) use As directed NS lancets (FreeStyle Lancets) Check fasting glucose twice a day before meals lisinopril 10 mg PO DAILY metformin ER Take 1000 mg metformin in the morning with breakfast and 500mg at night with supper 3 months semaglutide (Ozempic) 0.25 mg (0.368 mL) subcut QWEEK 30 days simvastatin 20 mg PO QPM Tobacco use date assessed: 07/09/24 Fall risk assessment: 1 Fall in past year Last assessed Fall Risk: 07/09/24 Dental Screening Dental Screen Date: 07/09/24 Did you have a dental visit in the last 12 months?: Yes Did you have a dental problem in the last 6 months where you did not have access to dental care?: No Was dental information given to patient?: Patient has dentist HPI Annual PE - see comments HPI Details 69-year-old lady here today for her phys ical exam. She is up-to-date with her screening mammogram, last done 04/19/2024 benign findings, had a bone density scan done in 07/14/2018 which showed beginning osteopenia in left femoral neck, normal in lumbar spine and left femur. She is up-to-date with her screening colonoscopy [place] [address] Bennett, due for recheck in 2027 due to history of tubular adenoma removed in the past. She has hypertension, currently stable and controlled on lisinopril 10 mg daily. Diabetes mellitus well controlled on Ozempic 0.25 mg injected once a week together with metformin ER which he takes a 1000 mg in the morning and 500 mg at night. Latest hemoglobin A1c is 6 point 2% with no microalbuminuria seen . Has dyslipidemia currently on simvast atin 20 mg at bedtime, with latest fasting lipids within normal limits. [facility] Medical History Type 2 diabetes mellitus without complication, without long-term current use of insulin Diabetes mellitus with hyperglycemia Bilateral carpal tunnel syndrome Tubular adenoma of colon Morbid obesity Essential hypertension Dyslipidemia (high LDL; low HDL) Surgical History Hx of foot surgery H/O colonoscopy Family History Father No problems noted. Mother No problems noted. Brother No problems noted. Sister No problems noted. Sister No problems noted. Social History Housing: House Alcohol intake: current Alcohol intake frequency: does not drink Patient Tobacco Use Status: Never used Tobacco e-Cigarette/Vaping Use: Never Used service: No Current occupational status: employed Cognitive needs: No Hearing needs: No Vision needs: Yes Questionnaire PHQ-9 Over the last 2 weeks, how often have you been bothered by any of the following problems? Depression Screening Interpretation: Negative Depression Screening Done: Yes Source: Developed by Drs. Nick Fry, Leonor Alvarez, Rosendo Coronel and colleagues, with an educational angie from [employer]. Thrive Questionnaire Date Thrive assessed: 07/09/24 I am a: Patient What is your living situation today?: I have a steady place to live Within the past 12 months, did the food you bought not last and you didn't have the money to get more?: Never true Within the past 12 months, did you worry whether your food would run out before you got money to buy more?: Never true Do you have trouble paying for medicines?: No Do you have trouble getting transportation to medical appointments?: No Do you have trouble paying your heating and electricity bill?: No Do you have trouble taking care of your child, family member or friend?: No Do you have trouble with day-to-day activities such as bathing, preparing meals, shopping, managing finances, etc.?: No Are you currently unemployed and looking for a job?: No Are you interested in more education?: No Please select the resources that you would like help with: None Currently or been in a relationship where the following occur: No concerns r eported THRIVE Score: 0 AUDIT C Alcohol Use Questionnaire (AUDIT-C) 1. How often do you have a drink containing alcohol?: Monthly or less 2. How many drinks containing alcohol do you have on a typical day when you are drinking?: 1 or 2 3. How often do you have six or more drinks on one occasion?: Never Total Score: 1 WEI-7 AMB Questionnaire WEI-7 Date WEI - 7 assessed: 03/08/24 Feeling nervous, anxious, or on edge: 0 = Not at all Not being able to stop or control worryin = Not at all Worrying too much about different things: 0 = Not at all Trouble relaxin = Not at all Being so restless that it is hard to sit still: 0 = Not at all Becoming easily annoyed or irritable: 0 = Not at all Feeling afraid as if something awful might happen: 0 = Not at all Total WEI-7 score (0-4 normal; 5-9 mild; 10-14 moderate; 15-21 severe): 0 Source: Developed by Drs. Nick Fry, Leonor Alvarez, Rosendo Coronel and colleagues, with an educational angie from [employer]. Review of Systems Const Denies body aches, Denies fatigue, Denies fever(s), Denies headache(s) and Denies weakness Eyes Details: Goes to [facility] has an appointment set up already for October 2024 for her yearly diabetes retinopathy screen Denies change in vision ENT Denies dizziness, Denies headache(s), Denies nasal congestion, Denies nasal discharge and Denies sore throat Card Denies chest pain, Denies lightheadedness, Denies palpitations and Denies dyspnea Resp Denies chest congestion, Denies cough, Denies dyspnea and Denies wheezing GI Denies abdominal pain, Denies change in bowel habits and Denies heartburn Denies urinary frequency, Denies dysuria and Denies urinary urgency Musc Reports no additional complaints Skin/Breast Denies lesions and Denies rash Neuro Denies dizziness, Denies headache(s) and Denies weakness Psych Reports no additional complaints Endo Denies fatigue, Denies polydipsia, Denies polyuria and Denies palpitations Lucian/Lymph Denies easy bruising Aller/Immun Denies seasonal rhinorrhea and Denies wheezing Physical exam (Primary Care) Vital Signs: Last Vital Signs Temp 98.2 F 07/09/24 09:26 Pulse 71 07/09/24 09:26 Resp 16 07/09/24 09:26 BP 122/82 07/09/24 09:26 Pulse Ox 97 07/09/24 09:26 Oxygen Delivery Method Room Air 07/09/24 09:26 BMI result Body Mass Index 39.1 Tobacco/Smoking Status: Tobacco use Status Tobacco use date assessed 07/09/24 07/09/24 09:32 Patient Tobacco Use Status Never used Tobacco 07/09/24 09:10 e-Cigarette/Vaping Use Never Used 07/09/24 09:10 Depression Screening Interpretation: Negative Thrive Assessment: Date of Thrive Assessment Date Thrive assessed 07/09/24 07/09/24 09:10 Currently or been in a relationship where the following occur: No concerns reported Advance Care Planning discussion: Completed/Scanned Date of discussion: 07/09/24 Who was present: Patient Forms completed: Health Care Proxy and MOLST Time spent: 16-45 minutes Actual minutes spent: 10 Const General: comfortable and no acute distress Orientation/consciousness: patient oriented x3 HENMT Ears: hearing grossly normal bilaterally and external ears normal General nose exam: Normal external nose present Face and sinus: Yes face symmetric Mouth: Normal oral and palatal mucosa present and moist mucous membranes Eyes General: appearance normal, both eyes and all related structures Neck Neck: Yes full ROM, Yes no lymphadenopathy, Yes supple and Yes no JVD Thyroid: Thyroid normal Chest Breast/axilla palpation: normal palpation of the breasts Resp Effort & Inspection: normal respiratory effort and able to speak in complete sentences Auscultation: clear to auscultation bilaterally Cardio Palpation: normal PMI Rate: regular rate Rhythm: regular rhythm Heart sounds: S1 normal heart sound present and S2 normal heart sound present GI Palpation (GI): Soft to palpation, nontender, no guarding and no masses Auscultation: normal bowel sounds Back/Spine/Pelvis Back: No back tenderness Skin General skin exam: no rashes or lesions noted Neuro General: patient oriented x3, gait normal, tone normal, moves all extremities, Normal light touch and pain sensation, no focal motor deficits, CN's II-XI intact bilaterally and normal sensation to monofilament Extrem General: Yes full ROM, Yes no clubbing, cyanosis or edema, Yes no calf tenderness and Yes normal gait Psych Appearance: grossly normal and well kempt Mental Status: mental status grossly normal Affect: normal affect Results Reviewed Results Reviewed: Laboratory Tests 07/02/24 08:00 Estimat Average Glucose 131 Hemoglobin A1c % 6.2 H Urine Creatinine 174.60 Urine Microalbumin 22.0 Microalb/Creat Ratio 12.6 Name: Teresa Clement Age/Sex: 69/F : 1955 Unit#: [id number] Attend Dr: Pam Pierce MD Re07/02/24 Status: DEP REF Location: [facility] Disch: SPEC : [id number] [place]: 07/02/24 STATUS: COMP REQ : [id number] RECD: 07/02/[address]: Pam Pierce MD COMP: 07/02/24 ENTERED: 07/02/[address] [facility] [address]: ORDERED: Met Prof Fast, AST, ALT, Lipid Panel, Vitamin D 25-OH Test Result Flag Reference Sodium 141 135-145 mmol/L Potassium 3.9 3.3-5.1 mmol/L CL 104 96-108 mmol/L CO2 26 22-29 mmol/L Gap 15 12-20 BUN 10 9-16 mg/dL Creat 0.63 0.5-1.4 mg/dL eGFR > 60 Chronic Kidney Disease: Estimated GFR < 60 mL/min/1.73m2 Severe Kidney Disease: Estimated GFR < 15 mL/min/1.73m2 FBS 133 H 60-99 mg/dL A fasting glucose of 126 mg/dl or greater on more than one occasion is considered diagnostic of diabetes. CA 9.4 8.4-10.2 mg/dL AST (GOT) 24 5-31 U/L ALT (GPT) 23 0-31 U/L Triglyceride 114 <150 mg/dL Desirable Triglyceride: less than 150 mg/dL Borderline High Triglyceride 150-199 mg/dL High Triglyceride: 200-499 mg/dL Very High Triglyceride: greater than or equal to 5OO mg/dL Cholesterol 143 <200 mg/dL Desirable Cholesterol: less than 200 mg/dL Borderline High Cholesterol: 200-239 mg/dL High Cholesterol: greater than 239 mg/dL LDL Calculated 68 <100 mg/dL Desirable LDL: less than 100 mg/dL Near Optimal/Above Optimal LDL: 110-129 mg/dL Borderline High LDL: 130-159 mg/dL High LDL: 160-189 mg/dL Very High LDL: greater than or equal to 190 mg/dL HDL 53 >40 mg/dL Desirable HDL: greater than 40 mg/dL Note: This HDL assay may give artificially low results in patients with liver disease. Vitamin D 25-OH 30.3 >30 ng/mL Health Based Reference Values* < 20 ng/mL Deficient 20-30 ng/mL Insufficient > 30 ng/mL Sufficient Coding Level of Care Code Est Pt Prev Care >65y(00768) Diagnoses Annual visit for general adult medical examination with abnormal findings Z00.01 Dyslipidemia (high LDL; low HDL) E78.5 Essential hypertension I10 Type 2 diabetes mellitus without complication, without long-term current use of insulin E11.9 Advanced directives, counseling/discussion Z71.89 Additional Codes Vital Signs *Quality* - Advance Care Planning discussion: Completed/Scanned ([id number]) Vital Signs *Quality* - Time spent: 16-45 minutes ([id number]) Assessment & Plan Assessment & Plan (1) Annual visit for general adult medical examination with abnormal findings: Code(s): Z00.01 - Encounter for general adult medical examination with abnormal findings Plan: She is up-to-date with her screening mammogram, last done 04/19/2024 benign findings, had a bone density scan done in 07/14/2018 which showed beginning osteopenia in left femoral neck, normal in lumbar spine and left femur. She is up-to-date with her screening colonoscopy done in [address] Bennett, due for recheck in 2027 due to history of tubular adenoma removed in the past. Up-to-date with all her vaccines except for RSV (2) Dyslipidemia (high LDL; low HDL): Code(s): E78.5 - Hyperlipidemia, unspecified Category: Medical Plan: Reviewed recent fasting lipid profile with patient with levels within normal limits . Continue with simvastatin 20 mg at bedtime , in addition to adherence to low-cholesterol diet and regular exercise, at least 30 minutes 3 to 4 times a week. Advised patient to make healthy food choices, eat more fruits, vegetables, whole grains, wild caught fish and low-fat dairy. Limit amount of meat and fried or fatty food products, as well as processed foods and fast foods. Follow-up scheduled with repeat fasting lipid panel in 3 months. (3) Essential hypertension: Code(s): I10 - Essential (primary) hypertension Category: Medical Plan: Continued on lisinopril 10 mg daily (4) Type 2 diabetes mellitus without complication, without long-term current use of insulin: Code(s): E11.9 - Type 2 diabetes mellitus without complications Category: Medical Plan: Recent lab results reviewed with patient, with sugar and hemoglobin A1c stable and at goal. Continue Ozempic 0.25 mg injected once a week in addition to met formin ER, continue to check fasting blood sugar at home, maintain log and bring to next appointment for review. Reinforced diabetic diet and regular exercise with patient. Counseled regarding importance of yearly diabetes retinopathy screening. Patient advised to inspect feet daily, for any signs of injury, callus or infection. Compliance with diet and regular exercise again stressed. Blood pressure goal is less than 130/80, goal LDL is less than 100 and goal hemoglobin A1c is less than 7% follow-up appointment made in-3--months, after fasting labs done. (5) Advanced directives, counseling/discussion: Code(s): Z71.89 - Other specified counseling Plan: Initiated the conversation about Advanced Directives. Advanced Directives help patients prepare for current and future decisions about their medical treatment and place of care. Discussed with patient that it is a process where a patients current condition and prognosis are reviewed, their wishes for information regarding their illness are elicited, and likely medical dilemmas are presented and options discussed. Healthcare proxy and MOLST form completed today. These forms can be amended as needed, reviewed yearly and make changes as needed Orders: Orders Hemoglobin A1c 09/21/24 E11.9 - Type 2 diabetes mellitus without complications, E66.01 - Morbid (severe) obesity due to excess calories, E78.5 - Hyperlipidemia, unspecified, I10 - Essential (primary) hypertension Alanine Aminotransferase 09/21/24 E11.9 - Type 2 diabetes mellitus without complications, E66.01 - Morbid (severe) obesity due to excess calories, E78.5 - Hyperlipidemia, unspecified, I10 - Essential (primary) hypertension Aspartate Amino Transferase 09/21/24 E11.9 - Type 2 diabetes mellitus without complications, E66.01 - Morbid (severe) obesity due to excess calories, E78.5 - Hyperlipidemia, unspecified, I10 - Essential (primary) hypertension Basic Metabolic Panel Fasting 09/21/24 E11.9 - Type 2 diabetes mellitus without complications, E66.01 - Morbid (severe) obesity due to excess calories, E78.5 - Hyperlipidemia, unspecified, I10 - Essential (primary) hypertension Lipid Panel 09/21/24 E11.9 - Type 2 diabetes mellitus without complications, E66.01 - Morbid (severe) obesity due to excess calories, E78.5 - Hyperlipidemia, unspecified, I10 - Essential (primary) hypertension Vitamin D 25-OH Total 09/21/24 E11.9 - Type 2 diabetes mellitus without complications, E66.01 - Morbid (severe) obesity due to excess calories, E78.5 - Hyperlipidemia, unspecified, I10 - Essential (primary) hypertension
[2024-07-09 09:26] VITALS: BP 122/82; PULSE 71; RESP 16; TEMP 36.8; O2SAT 97; BMI 39.1
== END 2024-07-09 10:16 | disposition home or self-care (01) ==
LOC: HO.HMCC 08:56
PROVIDERS: PCP Internal Medicine; Visit Provider Internal Medicine
DX: Z00.01 Encounter for general adult medical examination with abnormal findings (principal); E78.5 Hyperlipidemia, unspecified; I10 Essential (primary) hypertension; E11.9 Type 2 diabetes mellitus without complications; Z71.89 Other specified counseling; Z00.00 Encounter for general adult medical examination without abnormal findings

== ENCOUNTER → 2024-07-09 08:55 | Outpatient (BNVA) | payer MEDICARE, SELFPAY | PROVIDERS: PCP Internal Medicine; Visit Provider Internal Medicine | DX: Z00.01 Encounter for general adult medical examination with abnormal findings (principal); E78.5 Hyperlipidemia, unspecified; I10 Essential (primary) hypertension; E11.9 Type 2 diabetes mellitus without complications; Z71.89 Other specified counseling | CPT/HCPCS: 99397; 99497 ==

== ENCOUNTER 2024-10-01 07:56 | Outpatient (REF) | payer MEDICARE, SELFPAY ==
--- OUTSIDE RECORDS SUMMARY | 2023-08-08 04:50 | XMS_ITS ---
Author Organization [facility] Address [address] [place] [address] Care Team Providers Care Probation Worker Name Role Phone Stan SKAGGS, Pam Primary Care Provider Nick Corado Unavailable [phone] REASON FOR VISIT screening,hx polyps Problems Problem Type SNOMED Code ICD Code Onset Dates Problem Status W/U Status Risk Notes Problem Diverticulosis o f large intestine without perforation or abscess without bleeding (K57.30) Active confirmed Encounters Encounter Location Date Provider Diagnosis [facility] Outpatient [address] [place] [address] [id number] 08/08/2023 Nick Bennett Encounter for scre ening colonoscopy Z12.11 ; Diverticulosis of large intestine without perforation or abscess without bleeding K57.30 and Other hemorrhoids K64.8 Assessments Encounter Date Diagnosis (ICD Code) Assessment Notes Treatment Notes Treatment Clinical Notes Section Notes 08/08/2023 Encounter for screening colonoscopy (ICD-10 - Z12.11) 08/08/2023 Diverticulosis of large intestine without perforation or abscess without bleeding (ICD-10 - K57.30) 08/08/2023 Other hemorrhoids (ICD-10 - K64.8) Plan Of Treatment No Information Progress Notes * LISANDRO SUMMERS LDOB:[birth year] (69 yo F)Acc No.[id number]:08/08/2023 COLON WITH MAC Patient: LISANDRO TERESA Provider: Francy Bennett MD :1955 A ge:68 Y S ex:Female Date:08/08/2023 Address:[address] [facility] Pcp:Pam Pierce MD Subjective: * Chief Complaints: * 1 . Screening,hx polyps. * Medical History: Objective: * Vitals: Assessment: * Assessment: 1. E ncounter for screening colonoscopy - Z12.11 (Primary) 2 . D iverticulosis of large intestine without perforation or abscess without bleeding - K57.30 3 .?Other hemorrhoids - K64.8 Plan: * Treatment: * Procedure Codes: 4 5378 DIAGNOSTIC COLONOSCOPY * * The named appointment provid er may or may not be the originator of this progress note, and it is not deemed complete until electronically signed by the appointment provider. Sign off status: Pending * Provider: Francy Bennett MD Date: 0 08/08/2023 Generated for Yosi moura/Cristian/Cherryitting on: 0 10/01/2024 07:58 AM EDT
--- OUTSIDE RECORDS SUMMARY | 2024-10-01 07:59 | XMS_ITS | Patient Health Record ---
[facility] Address [address] [place] [address] Care Team Providers Care Barn Manager Name Role Phone Gabriele Suarez MD Primary Care Provider Irene Winslow Unavailable [phone] Allergies Allergen (clinical drug ingredient) Drug/Non Drug Allergy documented on EMR Reaction Allergy Type Onset Date Status Adhesive Tape rash Drug Allergy Act berna Reason For Referral No Information Medications Medication SIG (Take, Route, Frequency, Duration) Notes Start Date End Date Status Simvastatin 20 MG 1 tablet in the even ing Orally Once a day Active Lisinopril 5 MG 1 tablet Orally Once a day Active aspirin 81 mg Active Night Splint AFO - L1930 as directed 09/08/2016 Not-Taking Walking Boot/Pneumatic As directed Wear Daily; Duration: Until further notice 10/13/2016 Not-Taking Physical Therapy . . . 2-3x/week; Duration: 3-4 weeks 11/03/2016 Active Social History Tobacco Use: Social History Observation Description Date Details (start date - stop date) Never Smoker NA - NA Tobacco Use/Smoking Question Answer Notes Are you a: nonsmoker Alcohol Screen Question Answer Notes Did you have a drink contain ing alcohol in the past year? Yes How often did you have a dri nk containing alcohol in the past year? Monthly or less (1 point) How often did you have 6 or more drinks on one occasion in the past year? Never (0 point) Points 1 Interpretation Negative Sexual History Question Answer Notes Had sex in the past 12 months (vaginal, oral, or anal)? No Have you ever had a Sexually transmitted disease ? No Tobacco use other than smoking: Question Answer Notes Are you an other tobacco user? No Problems No Known Problems Plan Of Treatment No Information Insurance Providers Payer Name Payer Address Payer Phone Subscriber Number Group Number Insured Name Patient Relationship to Insured Coverage Start Date Coverage End Date [facility] [address] [place] [address] [phone] [id number] Teresa Clement Self - patient is the insured Medical (General) History Medical History History ICD Code High blood pressure Measles Chicken pox Surgical History Surgery Date(Month/Year) Heel spurs 1989 Cyst Removal 2005
[2024-10-01 10:47] LABS: Alanine Aminotransferase 25 U/L (0-31); Anion Gap 13 (12-20); Aspartate Amino Transferase 29 U/L (5-31); Blood Urea Nitrogen 12 mg/dL (9-16); Calcium 9.3 mg/dL (8.4-10.2); Carbon Dioxide 26 mmol/L (22-29); Chloride 107 mmol/L (96-108); Cholesterol 182 mg/dL (<200); Estimated Glomerular Filt Rate > 60; HDL Cholesterol 58 mg/dL (>40); Potassium 4.1 mmol/L (3.3-5.1); Sodium 142 mmol/L (135-145); Triglycerides 110 mg/dL (<150)
[2024-10-01 12:30] LABS: Hemoglobin A1C 202.7445 umol/L; Total Hemoglobin (HGBA1C) 3843.1769 umol/L
== END 2024-10-01 07:57 | disposition home or self-care (01) ==
LOC: HO.HMGCLDS 07:56
PROVIDERS: PCP Internal Medicine; Visit Provider Internal Medicine
DX: I10 Essential (primary) hypertension (principal); E11.9 Type 2 diabetes mellitus without complications; E66.01 Morbid (severe) obesity due to excess calories; E78.5 Hyperlipidemia, unspecified
CPT/HCPCS: 36415; 80048; 80061; 82306; 83036; 84450; 84460

== ENCOUNTER 2024-10-10 07:57 | Outpatient (AMB) | payer MEDICARE, SELFPAY ==
--- OUTSIDE RECORDS SUMMARY | 2024-10-10 08:02 | XMS_ITS | Patient Health Record ---
[facility] Address [address] [place] [address] Care Team Providers Care Speeder Operator Name Role Phone Gabriele Suarez MD Primary Care Provider Irene Winslow Unavailable [phone] Allergies Allergen (clinical drug ingredient) Drug/Non Drug [...] Insured Coverage Start Date Coverage End Date [facility] [address] [place] [address] [phone] [id number] Teresa Clement Self - patient is the insured Medical (General) History Medical History History ICD Code High blood pressure Measles Chicken pox Surgical History Surgery Date(Month/Year) Heel spurs 1989 Cyst Removal 2005
--- OUTSIDE RECORDS SUMMARY | 2024-10-10 08:02 | XMS_ITS | Clinical Summary ---
Author Organization [facility] Address [address] [place] [id number] Phone Care Team Providers Care Equine Vet Name Role Phone Pam Pierce MD Primary Care Provider Allergies No known active allergies Medications lisinopril (PRINIVIL,ZESTRIL ) 10 MG tablet Take 10 mg by mouth daily. 9 Active simvastatin (ZOCOR) 20 MG tablet Take 20 mg by mouth nightly at bedtime. 9 Active aspirin 81 MG EC tablet Take 81 mg by mouth daily. Active cholecalciferol, vitamin D3, (VITAMIN D3 ORAL) Take 800 mg by mouth. Active acetaminophen (TYLENOL) 650 MG CR tablet Take 650 mg by mouth every 6 (six) hours as needed for pain (specific location in comments). 5 Active aspirin 325 MG EC tablet Take 325 mg by mouth 2 (two) times a day. 5 Active celecoxib (CELEBREX) 200 MG capsule Take 200 mg by mouth daily. 5 Active docusate sodium (COLACE) 100 MG capsule Take 100 mg by mouth 2 (two) times a day as needed for mild constipation. 5 Active oxyCODONE 5 MG immediate release tablet Take 5 mg by mouth every 4 (four) hours as needed for pain (specific location in comments). take 1-2 tablets by mouth every 4 hours as needed for moderate to severe pain 5 Active pantoprazole (PROTONIX) 40 MG tablet Take 40 mg by mouth daily. 5 Active polyethylene glycol 3350,bulk, Powd Take 17 g by mouth daily as needed (constipation ). Active traMADoL (ULTRAM) 50 mg tablet Take 50 mg by mouth every 6 (six) hours as needed for pain (specific location in comments). take 1-2 tablets by mouth every 6 hours not to exceed 400mg/day take for mild to moderate pain Active metFORMIN (GLUCOPHAGE) 500 MG tablet Take 500 mg by mouth 2 (two) times a day with meals. Active semaglutide (OZEMPIC) 0.25 mg or 0.5 mg (2 mg/3 mL) subcutaneous injection pen Inject 0.25 mg under the skin every 7 days. Active Active Problems Problem Noted Date Diagnosed Date History of abnormal cervical Pap smear Overview (04/30/2019): 2018 in [place], no records Family History Medical History Relation Comments Other Neg Hx no female or col on cancer Social History Tobacco Use Types Packs/Day Years Used Date Smoking Tobacco: Never Smokeless Tobacco: Never Alcohol Use Standard Drinks/Week Comments Never 0 (1 standard drink = 0.6 oz pur e alcohol) Home Health Assessment: Transportation Answer Date Recorded Lack of Transportation (Medical) No 05/31/2024 Lack of Transportation (Non-Medical) No 05/31/2024 Patient Unable or Declines to Respond No 05/31/2024 Education Answer Date Recorded Are you interested in more education? Not on mignon e 06/18/2022 Are you concerned about learning? Not on file 06/18/2022 No 06/18/2022 No 06/18/2022 Digital Access Answer Date Recorded No 07/17/2022 No 07/17/2022 No 07/17/2022 Reliable internet access at home? Not on file 07/17/2022 Device with a working camera? Not on file Comments No Sex and Gender Information Value Date Recorded Sex Assigned at Not on file Legal Sex Female 10:15 AM EDT Gender Identity Not on file Sexual Orientation Not on file Last Filed Vital Signs Vital Sign Reading Time Taken Comments Blood Pressure 132/70 05/31/2024 2:49 PM EDT Pulse 67 05/31/2024 2:49 PM EDT Temperature 36.4 C (97.6 F) 05/30/2024 12:07 PM EDT Respiratory Rate 16 05/31/2024 2:49 PM EDT Oxygen Saturation 97% 05/31/2024 2:49 PM EDT Inhaled Oxygen Concentration - - Weight 109.1 kg (240 lb 9.6 oz) 021 11:09 AM EST Height 157.5 cm (5' 2 ) 01/02/2021 11:0 9 AM EST Body Mass Index 44.01 01/02/2021 11:09 AM EST Plan of Treatment Health Maintenance Due Date Last Done Comments CREATININE LEVEL 1955 LIPID PANEL 1955 POTASSIUM LEVEL 1955 DEPRESSION SCREENING 1968 HEPATITIS C SCREENING 01/06/1974 MAMMOGRAM 1996 COLOGUARD 01/06/2001 COLONOSCOPY 01/06/2001 COLORECTAL CANCER SCREENING 01/06/2001 FIT TEST 01/06/2001 FOBT 01/06/2001 SIGMOIDOSCOPY 01/06/2001 VIRTUAL COLONOSCOPY 01/06/2001 PNEUMOCOCCAL VACCINES (50+ years) (1 of 1 - PCV) 01/06/2006 PAP SMEAR 04/29/2020 04/30/2019, 04/30/2019 OSTEOPOROSIS SCREENING INITI AL (ONE-TIME) 01/06/2021 Adult Td,Tdap Booster 10/26/2021 10/27/2011 COVID-19 VACCINE (3 - 2023-2 5 season) 2023 04/08/2020, 03/18/2020 RSV VACCINE (1 - 1-dose 75+ series) 01/06/2031 ZOSTER VACCINES Completed 02/27/2020, 10/19/2019, 01/08/2016 SMOKING STATUS SCREENING (On ce After 26 Yrs) Completed 01/02/2021 HEPATITIS A VACCINES Aged Out No long er eligible based on patient's age to complete this topic HIB VACCINES Aged Out No longer eligi ble based on patient's age to complete this topic MENINGOCOCCAL VACCINES (ACWY) Aged Out No longer eligible based on patient's age to complete this topic MENINGOCOCCAL VACCINES (B) Aged Out N o longer eligible based on patient's age to complete this topic Medical Devices Not on file Procedures Procedure Name Priority Date/Time Associated Diagnosis Comments PAP TEST Routine 04/30/2019 12:00 AM EDT from Last 3 Months or Most Recently Relevant to Health Maintenance Results * Pap Smear (04/30/2019 12:00 AM EDT) 04/30/2019 05/01/2019 8:4 8 AM EDT Narrative SEE NARRATIVE - 05/03/2019 3:43 [place] [address] [facility] Assistant: Rosita Portillo MD FIELD CAPTAIN Cytology Report FINAL DIAGNOSIS A. PAP SMEAR (SUREPATH) CE: SPECIMEN ADEQUACY: Satisfactory for evaluation; transformation zone present. INTERPRETATION: NEGATIVE FOR INTRAEPITHELIAL LESION OR MALIGNANCY. Reactive changes. Electronically Signed Out By: PAMELA Quesada MD(ASCP) By his/her signature above, the pathologist listed as making the Final Diagnosis certifies that he/she has personally reviewed this case and confirmed or corrected the diagnosis. The Pap test is a screening test primarily for squamous cancers and precursors and has associated false-negative and false-positive results. New technologies such as liquid-based preparations may decrease but will not eliminate all false-negative results. Regular sampling and follow-up of unexplained clinical signs and symptoms are recommended to minimize false negative results. PROCEDURES/ADDENDA HPV Testing (Requested) Ordered Date: 05/01/2019 A. PAP SMEAR (SUREPATH) CE: Human Papilloma Virus Test Negative for high-risk human papillomavirus types 16, 18, 45 and the Other high risk probe set (Includes 31, 33, 35, 39, 51, 52, 56, 58, 59, 66, 68) by [employer] Onclarity HR-HPV analysis. Clinical correlation is advised. This HPV test was performed at [facility], [address] [place] [address]. This test has been FDA approved for SurePath cervical cytology specimens. The accuracy and precision of this test for all other specimen sources has been verified in the Cytopathology Laboratory of the [facility] and has not been cleared or approved by the U.S. Food and Drug Administration. Clinical correlation is advised. CLINICAL HISTORY Date of Last Menstrual Period: Not Provided Menstrual History: Post Menopausal Other Clinical Conditions: Screening Pap Abnormal PAP at Other Lab: 2018 SPECIMEN SOURCE A: PAP SMEAR (SUREPATH) CE Patient Name: TERESA CLEMETN : 1955 (Age: 64) Sex: F [facility] Location: [facility] Date of Collection: 04/30/2019 Date of Reported: 05/03/2019 15:43 Results to: Barbara Agrawal MD Barbara Agrawal MD CYTOLOGY ORDERABLES Final Result SEE NARRATIVE from Last 3 Months or Most Recently Relevant to Health Maintenance Insurance [facility] MEDICARE REPLACEMENT [facility] MEDICARE REPLACEMENT [place] [id number] [facility] MEDICARE REPLACEMENT [facility] MEDICARE REPLACEMENT [facility] MEDICARE REPLACEMENT [facility] MEDICARE REPLACEMENT Care Teams Equine Vet Relationship Specialty Start Date End Date Pam Pierce MD [address] [place] [address] PCP - General Internal Medicine 07/18/18 Additional Source Comments The information contained in this document represents components of the legal health record. It is not the complete legal health record.[facility]
--- OUTSIDE RECORDS SUMMARY | 2024-10-10 08:02 | XMS_ITS | Patient Health Record ---
Author Organization [facility] Address [address] [place] [address] Care Team Providers Care Critical Care Registered Nurse Name Role Phone Stan SKAGGS, Pam Primary Care Provider Nick Corado Unavailable [phone] Allergies No Known Allergies Reason For Referral No Information Medications Medication [...] Problem Status W/U Status Risk Notes Problem 780672147 Encounter for screening for malignant neoplasm of colon (Z12.11) Active confirmed Problem Diverticulosis o f large intestine without perforation or abscess without bleeding (K57.30) Active confirmed Problem 885387332082945 Preprocedural examination (Z01.818) Active confirmed Problem [id number] Hx of adenomatou s colonic polyps (Z86.010) Active confirmed Plan Of Treatment Future Test Test Name Order Date COLONOSCOPY 01/25/2012 COLONOSCOPY 11/04/2017 COLONOSCOPY 05/04/2023 Insurance Providers Payer Name Payer Address Payer Phone Subscriber Number Group Number Insured Name Patient Relationship to Insured Coverage Start Date Coverage End Date [facility] [address] [address] [place] [address] [phone] [id number] LISANDRO SUMMERS Self - patient is the insured MEDICARE OF [place] [address] [facility] [address] [phone] [id number] LISANDRO SUMMERS Self - patient is the insured Medical (General) History Medical History History ICD Code Tubular adenoma-removed in -approx. 1.5 cm flat polyp in the ascending colon; small tubular adenoma removed in 2012 HTN Hyperlipidemia Denies AR,CVA,Lung disease,renal disease Negative screening colonoscopy in [facility] of 2017 Surgical History Surgery Date(Month/Year) Owen bustos
--- NOTE | 2024-10-10 08:03 | A.OFFPC_ITS ---
Vital Signs 10/10/24 08:04 Height 5 ft 2.5 in Weight 222 lb BMI 40.0 BP 132/78 Blood Pressure Location Rt brachial Position Sitting Respiration 16 Pulse 73 Pulse Source Pulse Oximeter Temp 98.1 F Temp Source Oral Pulse Oximetry (%) 98 Oxygen Delivery Method Room Air Intake Visit Reasons: 3m follow up Intake Note: Pt is here today for her 3mo. f/u Allergies No Known Allergies Allergy (Verified 10/10/24 08:22) Medication List - Last Reconciled 10/10/24 by Pam Pierce MD blood sugar diagnostic (FreeStyle Lite Strips) As directed blood-glucose meter (FreeStyle Lite Meter kit) Check blood sugar b.i.d. before meals Comfort EZ Pen [place] (pen needle, diabetic) use As directed NS lancets (FreeStyle Lancets) Check fasting glucose twice a day before meals lisinopril 10 mg PO DAILY metformin ER Take 1000 mg metformin in the morning with breakfast and 500mg at night with supper 3 months simvastatin 20 mg PO QPM Tobacco use date assessed: 10/10/24 Fall risk assessment: 1 Fall in past year Last assessed Fall Risk: 10/10/24 Dental Screening Dental Screen Date: 10/10/24 Did you have a dental visit in the last 12 months?: Yes Did you have a dental problem in the last 6 months where you did not have access to dental care?: No Was dental information given to patient?: Patient has dentist HPI 3m follow up HPI Details - The patient is a 69-year-old female pr esenting with management of chronic conditions and preventative care. - Type 2 Diabetes Mellitus: The patient has a history of Type 2 Diabetes Mellitus, with recent lab results indicating an increase in HbA1c from 6.2% to 7%. - The patient had stopped taking Ozempic after surgery in April to observe any changes, which correlated with the increase in HbA1c. - Hyperlipidemia: The patient has hyperl ipidemia, with recent lab results showing an increase in total cholesterol by 40 points and higher LDL cholesterol levels as well. - Hypertension: The patient's blood pres sure is stable, managed with lisinopril. - Preventative care: The patient is up t o date with vaccinations, including flu shot, COVID-19 booster, shingles. [facility] Medical History Type 2 diabetes mellitus without complication, without long-term current use of insulin Diabetes mellitus with hyperglycemia Bilateral carpal tunnel syndrome Tubular adenoma of colon Morbid obesity Essential hypertension Dyslipidemia (high LDL; low HDL) Surgical History Hx of foot surgery H/O colonoscopy Family History Father No problems noted. Mother No problems noted. Brother No problems noted. Sister No problems noted. Sister No problems noted. Social History Housing: House Alcohol intake: current Alcohol intake frequency: does not drink Patient Tobacco Use Status: Never used Tobacco e-Cigarette/Vaping Use: Never Used service: No Current occupational status: employed Cognitive needs: No Hearing needs: No Vision needs: Yes Questionnaire Thrive Questionnaire Date Thrive assessed: 07/09/24 I am a: Patient What is your living situation today?: I have a steady place to live Within the past 12 months, did the food you bought not last and you didn't have the money to get more?: Never true Within the past 12 months, did you worry whether your food would run out before you got money to buy more?: Never true Do you have trouble paying for medicines?: No Do you have trouble getting transportation to medical appointments?: No Do you have trouble paying your heating and electricity bill?: No Do you have trouble taking care of your child, family member or friend?: No Do you have trouble with day-to-day activities such as bathing, preparing meals, shopping, managing finances, etc.?: No Are you currently unemployed and looking for a job?: No Are you interested in more education?: No Please select the resources that you would like help with: None Currently or been in a relationship where the following occur: No concerns reported THRIVE Score: 0 WEI-7 AMB Questionnaire WEI-7 Date WEI - 7 assessed: 03/08/24 Source: Developed by Drs. Nick Fry, Leonor Alvarez, Rosendo Coronel and colleagues, with an educational angie from [employer]. Review of Systems Const Denies body aches, Denies fatigue, Denies fever(s), Denies headache(s) and Denies weakness Eyes Details: Goes to [facility] has an appointment set up already for October 2024 for her yearly diabetes retinopathy screen Denies change in vision ENT Denies dizziness, Denies headache(s) and Denies nasal congestion Card Denies chest pain, Denies lightheadedness, Denies palpitations and Denies dyspnea Resp Denies chest congestion, Denies cough, Denies dyspnea and Denies wheezing GI Denies abdominal pain, Denies change in bowel habits and Denies heartburn Denies urinary frequency, Denies dysuria and Denies urinary urgency Musc Reports no additional complaints Skin/Breast Denies lesions and Denies rash Neuro Denies dizziness, Denies headache(s) and Denies weakness Psych Reports no additional complaints Endo Denies fatigue, Denies polydipsia, Denies polyuria and Denies palpitations Lucian/Lymph Denies easy bruising Aller/Immun Denies seasonal rhinorrhea and Denies wheezing Physical exam (Primary Care) Vital Signs: Last Vital Signs Temp 98.1 F 10/10/24 08:04 Pulse 73 10/10/24 08:04 Resp 16 10/10/24 08:04 BP 132/78 10/10/24 08:04 Pulse Ox 98 10/10/24 08:04 Oxygen Delivery Method Room Air 10/10/24 08:04 BMI result Body Mass Index 40.0 Tobacco/Smoking Status: Tobacco use Status Tobacco use date assessed 10/10/24 10/10/24 08:09 Patient Tobacco Use Status Never used Tobacco 10/10/24 08:03 e-Cigarette/Vaping Use Never Used 10/10/24 08:03 Thrive Assessment: Date of Thrive Assessment Date Thrive assessed 07/09/24 10/10/24 08:03 Currently or been in a relationship where the following occur: No concerns reported Const General: comfortable and no acute distress Nutritional Appearance: obese morbidly obese Orientation/consciousness: patient oriented x3 HENMT Ears: hearing grossly normal bilaterally and external ears normal General nose exam: Normal external nose present Face and sinus: Yes face symmetric Mouth: moist mucous membranes Eyes General: appearance normal, both eyes and all related structures Neck Neck: Yes full ROM, Yes no lymphadenopathy and Yes supple Thyroid: Thyroid normal Resp Effort & Inspection: normal respiratory effort and able to speak in complete sentences Auscultation: clear to auscultation bilaterally Cardio Palpation: normal PMI Rate: regular rate Rhythm: regular rhythm Heart sounds: S1 normal heart sound present and S2 normal heart sound present GI Palpation (GI): Soft to palpation, nontender, no guarding and no masses Auscultation: normal bowel sounds Back/Spine/Pelvis Back: No back tenderness Skin General skin exam: no rashes or lesions noted Neuro General: patient oriented x3, gait normal, tone normal, moves all extremities, Normal light touch and pain sensation, no focal motor deficits, CN's II-XI intact bilaterally and normal sensation to monofilament Extrem General: Yes full ROM, Yes no clubbing, cyanosis or edema, Yes no calf tenderness and Yes normal gait Psych Appearance: grossly normal and well kempt Mental Status: mental status grossly normal Affect: normal affect Results Reviewed Results Reviewed: Name: Teresa Clement Age/Sex: 69/F : 1955 Unit#: [id number] Attend Dr: Pam Pierce MD Re10/01/24 Status: DEP [facility]F [facility] Disch: SPEC : [id number] [place]: 10/01/24 STATUS: COMP REQ : [id number] RECD: 10/01/[address]: Pam Pierce MD COMP: 10/01/24 ENTERED: 10/01/[address]: ORDERED: Met Prof Fast, AST, ALT, Lipid Panel, Vitamin D 25-OH Test Result Flag Reference Sodium 142 135-145 mmol/L Potassium 4.1 3.3-5.1 mmol/L CL 107 96-108 mmol/L CO2 26 22-29 mmol/L Gap 13 12-20 BUN 12 9-16 mg/dL Creat 0.61 0.5-1.4 mg/dL eGFR > 60 Chronic Kidney Disease: Estimated GFR < 60 mL/min/1.73m2 Severe Kidney Disease: Estimated GFR < 15 mL/min/1.73m2 FBS 131 H 60-99 mg/dL A fasting glucose of 126 mg/dl or greater on more than one occasion is considered diagnostic of diabetes. CA 9.3 8.4-10.2 mg/dL AST (GOT) 29 5-31 U/L ALT (GPT) 25 0-31 U/L Triglyceride 110 <150 mg/dL Desirable Triglyceride: less than 150 mg/dL Borderline High Triglyceride 150-199 mg/dL High Triglyceride: 200-499 mg/dL Very High Triglyceride: greater than or equal to 5OO mg/dL Cholesterol 182 <200 mg/dL Desirable Cholesterol: less than 200 mg/dL Borderline High Cholesterol: 200-239 mg/dL High Cholesterol: greater than 239 mg/dL LDL Calculated 102 H <100 mg/dL Desirable LDL: less than 100 mg/dL Near Optimal/Above Optimal LDL: 110-129 mg/dL Borderline High LDL: 130-159 mg/dL High LDL: 160-189 mg/dL Very High LDL: greater than or equal to 190 mg/dL HDL 58 >40 mg/dL Desirable HDL: greater than 40 mg/dL Note: This HDL assay may give artificially low results in patients with liver disease. Vitamin D 25-OH 37.6 >30 ng/mL Health Based Reference Values* < 20 ng/mL Deficient 20-30 ng/mL Insufficient > 30 ng/mL Sufficient Laboratory Tests 07/02/24 10/01/24 08:00 08:00 Estimat Average Glucose 131 154 Hemoglobin A1c % 6.2 H 7.0 H Urine Creatinine 174.60 Urine Microalbumin 22.0 Microalb/Creat Ratio 12.6 Coding Level of Care Code Est Pt Level 4 (39115) Complex EM visit Add On G2211 Diagnoses Dyslipidemia (high LDL; low HDL) E78.5 Essential hypertension I10 Type 2 diabetes mellitus without complication, without long-term current use of insulin E11.9 Assessment & Plan Assessment & Plan (1) Dyslipidemia (high LDL; low HDL): Code(s): E78.5 - Hyperlipidemia, unspecified Category: Medical (2) Essential hypertension: Code(s): I10 - Essential (primary) hypertension Category: Medical (3) Type 2 diabetes mellitus without complication, without long-term current use of insulin: Code(s): E11.9 - Type 2 diabetes mellitus without complications Category: Medical Plan The patient will resume Ozempic at a dose of 0.25 mg in addition to metformin at the same dose to manage her Type 2 Diabetes Mellitus, as her HbA1c has increased since discontinuation. She will continue her current regimen of lisinopril for hypertension management, as her blood pressure remains stable. For hyperlipidemia, the patient will maintain her current lifestyle and dietary habits, with a focus on reducing cholesterol levels. Preventative care measures include ensuring vaccinations are up to date, with a focus on receiving the flu shot and considering the RSV vaccine. Has an appointment already scheduled for October for her yearly diabetes retinopathy screening Patient was informed and verbally consented to the use of an ambient scribe for clinic note documentation during this visit. Orders: Orders Lipid Panel 03/24/25 E11.9 - Type 2 diabetes mellitus without complications, E66.01 - Morbid (severe) obesity due to excess calories, E78.5 - Hyperlipidemia, unspecified, I10 - Essential (primary) hypertension Alanine Aminotransferase 03/24/25 E11.9 - Type 2 diabetes mellitus without complications, E66.01 - Morbid (severe) obesity due to excess calories, E78.5 - Hyperlipidemia, unspecified, I10 - Essential (primary) hypertension Microalbumin, Random (w Creat) 03/24/25 E11.9 - Type 2 diabetes mellitus without complications, E66.01 - Morbid (severe) obesity due to excess calories, E78.5 - Hyperlipidemia, unspecified, I10 - Essential (primary) hypertension Hemoglobin A1c 03/24/25 E11.9 - Type 2 diabetes mellitus without complications, E66.01 - Morbid (severe) obesity due to excess calories, E78.5 - Hyperlipidemia, unspecified, I10 - Essential (primary) hypertension Aspartate Amino Transferase 03/24/25 E11.9 - Type 2 diabetes mellitus without complications, E66.01 - Morbid (severe) obesity due to excess calories, E78.5 - Hyperlipidemia, unspecified, I10 - Essential (primary) hypertension Vitamin D 25-OH Total 03/24/25 E11.9 - Type 2 diabetes mellitus without complications, E66.01 - Morbid (severe) obesity due to excess calories, E78.5 - Hyperlipidemia, unspecified, I10 - Essential (primary) hypertension Basic Metabolic Panel Fasting 03/24/25 E11.9 - Type 2 diabetes mellitus without complications, E66.01 - Morbid (severe) obesity due to excess calories, E78.5 - Hyperlipidemia, unspecified, I10 - Essential (primary) hypertension Medications: Changed From semaglutide (Ozempic) for 4 weeks 0.25 mg (0.368 mL) subcut QWEEK 30 days 3 mL 2RF E11.65 - Type 2 diabetes mellitus with hyperglycemia, E66.01 - Morbid (severe) obesity due to excess calories To Ozempic (semaglutide) for 4 weeks 0.25 mg (0.368 mL) subcut QWEEK 3 mL 5RF 30 days NS E11.65 - Type 2 diabetes mellitus with hyperglycemia, E66.01 - Morbid (severe) obesity due to excess calories Refilled lisinopril 10 mg PO DAILY 90 tabs 4RF I10 - Essential (primary) hypertension
[2024-10-10 08:04] VITALS: BP 132/78; PULSE 73; RESP 16; TEMP 36.7; O2SAT 98; BMI 40.0
== END 2024-10-10 08:36 | disposition home or self-care (01) ==
LOC: HO.HMCC 07:58
PROVIDERS: PCP Internal Medicine; Visit Provider Internal Medicine
DX: E78.5 Hyperlipidemia, unspecified (principal); I10 Essential (primary) hypertension; E11.9 Type 2 diabetes mellitus without complications

== ENCOUNTER → 2024-10-10 07:57 | Outpatient (BNVA) | payer MEDICARE, SELFPAY | PROVIDERS: PCP Internal Medicine; Visit Provider Internal Medicine | DX: E78.5 Hyperlipidemia, unspecified (principal); I10 Essential (primary) hypertension; E11.9 Type 2 diabetes mellitus without complications | CPT/HCPCS: 99212 ==

== ENCOUNTER 2025-02-13 13:38 | Outpatient (AMB) | payer MEDICARE, SELFPAY ==
[2025-02-13 13:41] VITALS: BP 135/70; PULSE 79; RESP 16; TEMP 36.4; O2SAT 98; BMI 39.6
--- NOTE | 2025-02-13 13:41 | A.OFFPC_ITS ---
Vital Signs 02/13/25 13:41 Height 5 ft 2.5 in Weight 220 lb BMI 39.6 BP 135/70 Blood Pressure Location Rt brachial Position Sitting Respiration 16 Pulse 79 Pulse Source Pulse Oximeter Temp 97.6 F Temp Source Oral Pulse Oximetry (%) 98 Oxygen Delivery Method Room Air Intake Visit Reasons: Bellybutton hernia Intake Note: Pt is here today c/o ? ingulal herina Solution Sales Senior Executive Required: No Allergies No Known Allergies Allergy (Verified 02/13/25 14:10) Medication List - Last Reconciled 02/13/25 by Pam Pierce MD blood sugar diagnostic (FreeStyle Lite Strips) As directed blood-glucose meter (FreeStyle Lite Meter kit) Check blood sugar b.i.d. before meals Comfort EZ Pen [place] (pen needle, diabetic) use As directed NS lancets (FreeStyle Lancets) Check fasting glucose twice a day before meals lisinopril 10 mg PO DAILY metformin ER Take 1000 mg metformin in the morning with breakfast and 500mg at night with supper 3 months Ozempic (semaglutide) 0.25 mg (0.368 mL) subcut QWEEK 30 days NS simvastatin 20 mg PO QPM Tobacco use date assessed: 02/13/25 Fall risk assessment: No Falls in past year Last assessed Fall Risk: 02/13/25 Dental Screening Dental Screen Date: 02/13/25 Did you have a dental visit in the last 12 months?: Yes Did you have a dental problem in the last 6 months where you did not have access to dental care?: No Was dental information given to patient?: Patient has dentist HPI Bellybutton hernia HPI Details 70-year-old female presenting for evaluation of a symptomatic umbilical hernia. She reports having the hernia for several years, but it has only recently become bothersome. Her current symptoms include increased lower a bdominal girdling, crusted blood on the hernia, and discomfort when leaning against it or straightening up. She denies that the hernia is getting bigger, stating its size has remained about the same. She denies any pain, diarrhea, or constipation and reports moving her bowels regularly every day. [facility] Medical History Hernia, umbilical Type 2 diabetes mellitus without complication, without long-term current use of insulin Diabetes mellitus with hyperglycemia Bilateral carpal tunnel syndrome Tubular adenoma of colon Morbid obesity Essential hypertension Dyslipidemia (high LDL; low HDL) Surgical History Hx of foot surgery H/O colonoscopy Family History Father No problems noted. Mother No problems noted. Brother No problems noted. Sister No problems noted. Sister No problems noted. Social History Housing: House Alcohol intake: current Alcohol intake frequency: does not drink Patient Tobacco Use Status: Never used Tobacco e-Cigarette/Vaping Use: Never Used service: No Current occupational status: employed Cognitive needs: No Hearing needs: No Vision needs: Yes Questionnaire Thrive Questionnaire Date Thrive assessed: 07/09/24 I am a: Patient What is your living situation today?: I have a steady place to live Within the past 12 months, did the food you bought not last and you didn't have the money to get more?: Never true Within the past 12 months, did you worry whether your food would run out before you got money to buy more?: Never true Do you have trouble paying for medicines?: No Do you have trouble getting transportation to medical appointments?: No Do you have trouble paying your heating and electricity bill?: No Do you have trouble taking care of your child, family member or friend?: No Do you have trouble with day-to-day activities such as bathing, preparing meals, shopping, managing finances, etc.?: No Are you currently unemployed and looking for a job?: No Are you interested in more education?: No Currently or been in a relationship where the following occur: No concerns reported THRIVE Score: 0 WEI-7 AMB Questionnaire WEI-7 Date WEI - 7 assessed: 03/08/24 Source: Developed by Drs. Nick Fry, Leonor Alvarez, Rosendo Coronel and colleagues, with an educational angie from [employer]. Review of Systems Const Denies body aches, Denies fatigue, Denies fever(s), Denies headache(s) and Denies weakness Eyes Details: Goes to [facility] has an appointment set up already for October 2024 for her yearly diabetes retinopathy screen Denies change in vision ENT Denies dizziness and Denies headache(s) Card Denies chest pain, Denies lightheadedness, Denies palpitations and Denies dyspnea Resp Denies chest congestion, Denies cough, Denies dyspnea and Denies wheezing GI Reports as per HPI, Denies change in bowel habits and Denies heartburn Denies urinary frequency, Denies dysuria and Denies urinary urgency Musc Reports no additional complaints Skin/Breast Denies lesions and Denies rash Neuro Denies dizziness, Denies headache(s) and Denies weakness Psych Reports no additional complaints Endo Denies fatigue, Denies polydipsia, Denies polyuria and Denies palpitations Lucian/Lymph Denies easy bruising Aller/Immun Denies seasonal rhinorrhea and Denies wheezing Physical exam (Primary Care) Vital Signs: Last Vital Signs Temp 97.6 F 02/13/25 13:41 Pulse 79 02/13/25 13:41 Resp 16 02/13/25 13:41 BP 135/70 02/13/25 13:41 Pulse Ox 98 02/13/25 13:41 Oxygen Delivery Method Room Air 02/13/25 13:41 BMI result Body Mass Index 39.6 Tobacco/Smoking Status: Tobacco use Status Tobacco use date assessed 02/13/25 02/13/25 13:46 Patient Tobacco Use Status Never used Tobacco 02/13/25 13:46 e-Cigarette/Vaping Use Never Used 02/13/25 13:46 Thrive Assessment: Date of Thrive Assessment Date Thrive assessed 07/09/24 02/13/25 13:46 Currently or been in a relationship where the following occur: No concerns reported Const General: comfortable and no acute distress Nutritional Appearance: obese morbidly obese Orientation/consciousness: patient oriented x3 HENMT Ears: external ears normal General nose exam: Normal external nose present Face and sinus: Yes face symmetric Mouth: moist mucous membranes Eyes General: appearance normal, both eyes and all related structures Neck Neck: Yes full ROM, Yes no lymphadenopathy and Yes supple Resp Effort & Inspection: normal respiratory effort and able to speak in complete sentences Auscultation: clear to auscultation bilaterally Cardio Rate: regular rate Rhythm: regular rhythm Heart sounds: S1 normal heart sound present and S2 normal heart sound present GI Other: Positive umbilical hernia with crusting noted Inspection: Yes Abdominal panniculus present and Yes obesity Palpation (GI): Soft to palpation, nontender and no guarding Auscultation: normal bowel sounds Back/Spine/Pelvis Back: No back tenderness Neuro General: patient oriented x3, gait normal, tone normal, moves all extremities, Normal light touch and pain sensation, no focal motor deficits, CN's II-XI intact bilaterally and normal sensation to monofilament Extrem General: Yes full ROM, Yes no clubbing, cyanosis or edema, Yes no calf tenderness and Yes normal gait Psych Appearance: grossly normal and well kempt Mental Status: mental status grossly normal Affect: normal affect Coding Level of Care Code Est Pt Level 4 (39645) Diagnoses Umbilical hernia without obstruction and without gangrene K42.9 Obstruction and gangrene presence: without obstruction or gangrene Assessment & Plan Assessment & Plan (1) Hernia, umbilical: Code(s): K42.9 - Umbilical hernia without obstruction or gangrene Category: Medical Qualifiers: Obstruction and gangrene presence: without obstruction or gangrene Qu alified Code(s): K42.9 - Umbilical hernia without obstruction or gangrene Plan: Advised to do avoid any heavy lifting. Surgical consult ordered for further evaluation and management. Advised to go to the ER if any increased bleeding or pain noted over site. Orders: Referrals General Surgery Referral K42.9 - Umbilical hernia without obstruction or gangrene
--- OUTSIDE RECORDS SUMMARY | 2025-02-13 13:41 | XMS_ITS | Patient Health Record ---
[facility] Address [address] [place] [address] Care Team Providers Care Voice Teacher Name Role Phone Gabriele Suarez MD Primary Care Provider Irene Winslow Unavailable [phone] Allergies Allergen (clinical drug ingredient) Drug/Non Drug [...] Insured Coverage Start Date Coverage End Date [facility] [address] [place] [address] [phone] [id number] Teresa Clement Self - patient is the insured Medical (General) History Medical History History ICD Code High blood pressure Measles Chicken pox Surgical History Surgery Date(Month/Year) Heel spurs 1989 Cyst Removal 2005
--- OUTSIDE RECORDS SUMMARY | 2025-02-13 13:41 | XMS_ITS | Clinical Summary ---
Author Organization [facility] Address [address] [facility] [address] [place] [id number] Phone Care Team Providers Care Bass Mechanism Maker Name Role Phone Pam Pierce MD Primary [...] (ONE-TIME) 01/06/2021 Adult Td,Tdap Booster 10/26/2021 10/27/2011 INFLUENZA VACCINE (#1) 2024 COVID-19 VACCINE (3 - 2024-2 6 season) 2024 04/08/2020, 03/18/2020 RSV VACCINE (1 - 1-dose [...] SEE NARRATIVE - 05/03/2019 3:43 PM EDT [address] [address] Pv Design And Installation Technician: Rosita Portillo MD NECKTIES PAINTER Cytology Report FINAL DIAGNOSIS A. PAP SMEAR [...] 52, 56, 58, 59, 66, 68) by Syndero Onclarity HR-HPV analysis. Clinical correlation is advised. This HPV test was performed at [facility], [address] [place] [address]. This test has been FDA approved for [facility] cervical cytology specimens. The accuracy and precision of this test for all other specimen sources has been verified in the Cytopathology Laboratory of the [facility] and has not been cleared or approved by the U.S. Food and Drug Administration. Clinical correlation is advised. CLINICAL HISTORY Date of Last Menstrual Period: Not Provided Menstrual History: Post Menopausal Other Clinical Conditions: Screening Pap Abnormal PAP at Other Lab: 2018 SPECIMEN SOURCE A: PAP SMEAR (SUREPATH) CE Patient Name: TERESA CLEMENT : 1955 (Age: 64) Sex: F Institution: [facility] Location: [facility] Date of Collection: 04/30/2019 Date of Reported: 05/03/2019 15:43 Results to: Barbara Agrawal MD Barbara Agrawal MD CYTOLOGY ORDERABLES Final Result SEE NARRATIVE from Last 3 Months or Most Recently Relevant to Health Maintenance Insurance [facility] MEDICARE REPLACEMENT [facility] MEDICARE REPLACEMENT [facility] MEDICARE REPLACEMENT [facility] MEDICARE REPLACEMENT [facility] MEDICARE REPLACEMENT [facility] MEDICARE REPLACEMENT [place] [id number] Care Teams Bass Mechanism Maker Relationship Specialty Start Date End Date Pam Pierce MD [address] [place] [address] PCP - General Internal Medicine 07/18/18 Additional Source Comments The information contained in this document represents components of the legal health record. It is not the complete legal health record.[facility]
--- OUTSIDE RECORDS SUMMARY | 2025-02-13 13:41 | XMS_ITS | Patient Health Record ---
Author Organization [facility] Address [address] [place] [address] Care Team Providers Care Degree Clerk Name Role Phone Pam Pierce MD Primary Care Provider Nick Corado Unavailable [phone] Allergies No Known Allergies Reason For Referral No Information Medications Medication SIG (Take, Route, Frequency, Duration) Notes Start Date End Date Status metFORMIN HCl 500 MG Tablet 1 tablet wit h a meal Orally Once a day; Duration: 30 day(s) Active Simvastatin 20mg Act berna Lisinopril 5mg Activ e Immunizations Vaccine Route Administration Date Status Comme nts Influenza Unknown 12/14/2022 Administered Social History Social History Drugs/Alcohol: Social Info Question Answer Notes Alcohol Screen Did you have a drink containing alcohol in the past year? Yes How often did you have a drink containing alcohol in the past year? Never (0 point) How many drinks did you have on a typical day when you were drinking in the past year? 1 or 2 drinks (0 point) How often did you have 6 or more drinks on one occasion in the past year? 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 alcohol Nonsmoker; no sig. alcohol Nonsmoker; no sig. alcohol Problems Problem Type SNOMED Code ICD Code Onset Dates Problem Status W/U Status Risk Notes Problem Screening for malignant neoplasm of colon (979812349) Encounter for screening for malignant neoplasm of colon (Z12.11) Active confirmed Problem Diverticular disease of colon (823179253) Diverticulosis of large intestine without perforation or abscess without bleeding (K57.30) Active confirmed Problem Preprocedural examination (133476974772440) Preprocedural examination (Z01.818) Active confirmed Problem History of adenomatous polyp of colon (503302476) Hx of adenomatous colonic polyps (Z86.010) Active confirmed Plan Of Treatment Future Test Test Name Order Date COLONOSCOPY 01/25/2012 COLONOSCOPY 11/04/2017 COLONOSCOPY 05/04/2023 Insurance Providers Payer Name Payer Address Payer Phone Subscriber Number Group Number Insured Name Patient Relationship to Insured Coverage Start Date Coverage End Date [facility] [address] [address] [place] [address] [id number] MELINAHALEYNA Self - patient is the insured MEDICARE OF [place] [address] [place] [address] [phone] [id number] HALEY SUMMERSNA Self - patient is the insured Medical (General) History Medical History History ICD Code Tubular adenoma-removed in -approx. 1.5 cm flat polyp in the ascending colon; small tubular adenoma removed in 2012 HTN Hyperlipidemia Denies [place],CVA,Lung disease,renal disease Negative screening colonoscopy in [facility] 2017 Surgical History Surgery Date(Month/Year) Owen bustos
== END 2025-02-13 14:14 | disposition home or self-care (01) ==
LOC: HO.HMCC 13:39
PROVIDERS: PCP Internal Medicine; Visit Provider Internal Medicine
DX: K42.9 Umbilical hernia without obstruction or gangrene (principal)

== ENCOUNTER → 2025-02-13 13:38 | Outpatient (BNVA) | payer MEDICARE, SELFPAY | PROVIDERS: PCP Internal Medicine; Visit Provider Internal Medicine | DX: K42.9 Umbilical hernia without obstruction or gangrene (principal) | CPT/HCPCS: 99212 ==